=== PATIENT | female | born 1955 | race Hispanic/Latino ===

== ENCOUNTER 2017-05-30 12:04 | Inpatient (IN) | payer MEDICARE, OTHER ==
--- NOTE | 2017-05-30 12:32 | ED PDOC ---
Arrival/HPI - General Chief Complaint: GI Problem Time Seen by Provider: 05/30/17 12:07 Historian: Patient - History of Present Illness Narrative History of Present Illness (Text): 05/30/17 12:28 62 year old female, whose past medical history includes diabetes and hypertension, who presents to the emergency department complaining of abdominal pain for approximately one week. Patient states pain started gradually in left lower abdomen and has been constant and progressively worse. Also reports sensation of icnreased distension. States she has pain with urination, but denies discoloration of urine, denies retension. Patient notes associated vomiting and nausea. Reports normal bowel movements, denies bloody or dark stool. States she has chills in the middle of the night for the "past few days". 05/30/17 12:54 Symptom Onset: Sudden Symptom Course: Unchanged Activities at Onset: Light Context: Home Past Medical History - Provider Review Nursing Documentation Reviewed: Yes - Cardiac Hx Cardiac Disorders: Yes Hx Hypertension: Yes - Pulmonary Hx Respiratory Disorders: No - Neurological Hx Neurological Disorder: No - HEENT Hx HEENT Disorder: Yes Hx Blind: Yes (left eye) Other/Comment: Meniere's Disease - Renal Hx Renal Disorder: No - Endocrine/Metabolic Hx Endocrine Disorders: Yes Hx Diabetes Mellitus Type 2: Yes - Hematological/Oncological Hx Blood Disorders: No - Integumentary Hx Dermatological Disorder: No - Musculoskeletal/Rheumatological Hx Musculoskeletal Disorders: No - Gastrointestinal Hx Gastrointestinal Disorders: Yes Other/Comment: Peritonitis - Genitourinary/Gynecological Hx Genitourinary Disorders: No - Psychiatric Hx Psychophysiologic Disorder: No Hx Substance Use: No - Surgical History Hx Orthopedic Surgery: Yes (right rotator cuff) Family/Social History - Physician Review Nursing Documentation Reviewed: Yes Family/Social History: Unknown Family HX Smoking Status: Never Smoked Hx Alcohol Use: No Hx Substance Use: No Allergies/Home Meds Allergies/Adverse Reactions: Allergies Penicillins Allergy (Verified 05/30/17 12:44) URTICARIA acetaminophen [From Percocet] Adverse Reaction (Verified 05/30/17 12:45) DIZZINESS aspirin Adverse Reaction (Verified 05/30/17 12:45) PAIN oxycodone Adverse Reaction (Verified 05/30/17 12:45) DIZZINESS Review of Systems - Review of Systems Constitutional: Fatigue, Fevers, Night Sweats Eyes: absent: Vision Changes ENT: absent: Hearing Changes, Sore Throat Respiratory: SOB. absent: Cough Cardiovascular: absent: Chest Pain, Palpitations, Edema, Calf Pain, FRANCO Gastrointestinal: Abdominal Pain, Nausea, Vomiting, Appetite Changes, Anorexia Genitourinary Female: Dysuria. absent: Frequency, Vaginal Bleeding, Vaginal Discharge Musculoskeletal: absent: Back Pain, Neck Pain Skin: absent: Rash Neurological: absent: Headache, Dizziness, Focal Weakness Endocrine: absent: Polyuria Hemo/Lymphatic: absent: Easy Bleeding Psychiatric: absent: Depression Physical Exam - Physical Exam Narrative Physical Exam (Text): 05/30/17 12:32 Head: Atraumatic. Normocephalic. Eyes: Left eye at baseline from prior disease. No pain with eye movements. ENT: Mucous membranes dry. Oropharynx is clear and symmetric. Neck: Supple. Full ROM. No JVD. No lymphadenopathy. No meningeal signs. Cardiovascular: Tachycardiac. No murmurs, rubs, or gallops. Distal pulses are 2+ and symmetric. Pulmonary/Chest: Slightly tachypneic. Clear to auscultation bilaterally. No wheezing, rales or rhonchi. Abdominal: Distended. Rebound and guarding to the left lower quadrant. No pulsatile masses. Strong femoral pulses. No incarcerated hernias palpated. Back: No CVA tenderness. Extremities: No edema. No cyanosis. No clubbing. Full range of motion in all extremities. No calf tenderness. Skin: Skin is warm and dry. No petechiae. No purpura. Neurological: Alert, awake, and oriented to person, place, time, and situation. Normal speech. Motor and sensory exam intact. Psychiatric: Good eye contact. Normal interaction, affect, and behavior. Vital Signs Reviewed: Yes Vital Signs Temp Pulse Resp BP Pulse Ox 05/30/17 16:12 90 18 120/83 97 05/30/17 15:04 98.0 F 94 H 18 166/91 H 05/30/17 14:41 98.0 F 94 H 18 166/91 H 95 05/30/17 13:58 83 18 144/78 99 05/30/17 13:25 96 H 18 158/90 H 98 05/30/17 13:18 92 H 18 167/92 H 99 05/30/17 12:55 78 18 170/90 H 99 05/30/17 12:40 99 F 90 18 165/92 H 99 05/30/17 12:19 126 H 18 160/122 H 100 Temperature: Afebrile Blood Pressure: Hypertensive Pulse: Tachycardic Respiratory Rate: Tachypneic Appearance: Positive for: Ill-Appearing, Uncomfortable Pain Distress: Severe Mental Status: Positive for: Alert and Oriented X 3 Medical Decision Making ED Course and Treatment: 05/30/17 12:34 Impression: 62 year old female who presents to the emergency department complaining of left lower abdominal pain for 1 week. Differential Diagnosis included but are not limited to: Diverticulitis vs. perforation vs. peritonitis vs. bowel obstruction vs. renal colic vs. pyleonephritis vs. uti vs. sepsis Plan: -- IV Hydration -- CT Abdomen -- IV Abx -- Surgery Consult -- Reassess and disposition Progress Notes: 05/30/17 12:20 Case discussed with surgical garment inspector, who is aware and agrees with plan. 05/30/17 12:39 After lengthy discussion with patient, pt states percocet and oxycodon give her "stroke like symptoms". Pt also allergic to Penicillin and aspirin and tylenol. Due to these allergies, pt will be started on Levaquin and flagyl for suspicion of intraabdominal infection, and will have lengthy discussion regarding pain medication alternatives for patient with risks/benefits. residential case manager has performed initial evaluation in the Emergency Department. Dr. Serna, covering for PMD, has also performed initial assessment and requests Dr. Gallo for surgical consult, who I have communicated exam and history with. Labs and imaging studies pending. 05/30/17 13:[address] findings, consult was placed with superintendent landfill operations vice president mission integration, Dr. Galvan. 05/30/17 15:08 Patient DENIES allergy to acetaminophen. Tylenol ordered. She reports allergy to Percocet by has taken tylenol without adverse effect. I reviewed CT findings with patient. CT suggests possible pelvic mass with ascites. Given leukocytosis I cannot exclude infectious component as well although no free air or abscess currently noted. She is afebrile. NOT hypotensive. Tachycardia improved. 05/30/17 15:13 Dr Serna states she will consult gynecolgy oncolgist, requests cancelling current gynecology consult until further assessment. Pain management and allergies reviewed with patient and admitting team. - Lab Interpretations Lab Results: 05/30/17 12:20 05/30/17 12:20 Lab Results 05/30/17 13:00: Blood Type Confirm AB POSITIVE 05/30/17 12:20: Blood Type AB POSITIVE, Antibody Screen Negative, BBK History Checked No verified bt 05/30/17 12:20: Sodium 138, Chloride 101, Potassium 4.1, Carbon Dioxide 25, Anion Gap 16, BUN 17, Creatinine 0.9, Est GFR ( Amer) > 60, Est GFR (Non- Af Amer) > 60, Random Glucose 184 H, Calcium 10.0, Phosphorus 3.4, Magnesium 1.8 , Total Bilirubin 0.5, AST 33, ALT 32, Alkaline Phosphatase 85, Lactate Dehydrogenase 799 H, Total Creatine Kinase 36, Troponin I < 0.01, Total Protein 8.0, Albumin 4.2, Globulin 3.8, Albumin/Globulin Ratio 1.1, Amylase 60, Lipase 57 05/30/17 12:20: pO2 23 L, VBG pH 7.36, VBG pCO2 47.0, VBG HCO3 26.6, VBG Total CO2 28.0, VBG O2 Sat (Calc) 45.1, VBG Base Excess 0.6, VBG Potassium 4.4, Sodium 135.0, Chloride 101.0, Glucose 179 H, Lactate 1.3, FiO2 21.0, Venous Blood Potassium 4.4 05/30/17 12:20: PT 12.6 H, INR 1.09 H, APTT 26.9 05/30/17 12:20: WBC 19.2 H, RBC 4.10, Hgb 12.6, Hct 37.2, MCV 90.7, MCH 30.7, MCHC 33.9, RDW 13.3, Plt Count 450, MPV 9.6, Gran % 90.9 H, Lymph % (Auto) 4.5 L , Maverick % (Auto) 4.3, Eos % (Auto) 0.2 L, Baso % (Auto) 0.1, Gran # 17.48 H, Lymph # (Auto) 0.9 L, Maverick # (Auto) 0.8 H, Eos # (Auto) 0.0, Baso # (Auto) 0.02 , Neutrophils % (Manual) 92 H, Band Neutrophils % 3 H, Lymphocytes % (Manual) 4 L, Monocytes % (Manual) 1, Platelet Evaluation High - RAD Interpretation Radiology Orders: 05/30/17 12:25 ABD & PELVIS W/O PO OR IV CONT [CT] Stat 05/30/17 12:26 CHEST PORTABLE [RAD] Stat 05/30/17 12:31 ABDOMEN PORTABLE 1 VIEW [RAD] Stat Tabulating Supervisor: Radiologist - EKG Interpretation Interpreted by ED Physician: Yes Type: 12 lead EKG - Medication Orders Current Medication Orders: Metronidazole (Flagyl) 500 mg in 100 mls @ 100 mls/hr IVPB Q8 SAM PRN Reason: Protocol Last Admin: 05/30/17 21:42 Dose: 100 mls/hr eMAR Start Stop Document 05/30/17 21:42 CASPER (Rec: 05/30/17 21:43 CASPER [email or web address]) Intravenous Solution Start Date 05/30/17 Start Time 21:42 End Date 05/30/17 End time 22:42 Total Infusion Time 60 Sodium Chloride (Sodium Chloride 0.9%) 1,000 mls @ 80 mls/hr IV .[id number] [facility] Last Admin: 05/30/17 18:03 Dose: 80 mls/hr eMAR Start Stop Document 05/30/17 18:03 AGAPITO (Rec: 05/30/17 18:12 AGAPITO RAMSTENDORFLP) Intravenous Solution Start Date 05/30/17 Start Time 18:12 Levofloxacin/Dextrose (Levaquin 750mg) 750 mg IVPB DAILY SAM PRN Reason: Protocol Morphine Sulfate (Morphine) 1 mg IVP Q4H PRN PRN Reason: Pain, moderate (4-7) Last Admin: 05/30/17 18:16 Dose: 1 mg MAR Pain Assessment Document 05/30/17 18:16 AGAPITO (Rec: 05/30/17 18:16 AGAPITO [email or web address]) Pain Reassessment Is this a pain reassessment? Yes Sleep Is patient sleeping during reassessment? No Presence of Pain Presence of Pain Yes Pain Scale Used Pain Scale Used Numeric Location Left, Right or Bilateral Left Upper or Lower Lower Pain Location Body Site Abdomen Description Description Intermittent Intensity of Pain at present 10 Pain Behavior Moaning Aggravating Factors ADL's Changing Position Alleviating Factors/Management Medication Techniques Alleviating Factors Medication IVP Administration Document 05/30/17 18:16 AGAPITO (Rec: 05/30/17 18:16 AGAPITO [email or web address]) Charges for Administration # of IVP Administrations 1 Re-Assess: CYNDI Pain Assessment Document 05/30/17 19:16 AGAPITO (Rec: 05/30/17 19:44 AGAPITO [id number]) Pain Reassessment Is this a pain reassessment? Yes Sleep Is patient sleeping during reassessment? No Presence of Pain Presence of Pain No Pneumococcal Polyvalent Vaccine (Pneumovax 23 Vaccine) 0.5 ml IM .ONCE ONE Stop: 05/30/17 23:19 Discontinued Medications Acetaminophen (Tylenol 325mg Tab) 650 mg PO ONCE STA Stop: 05/30/17 14:51 Last Admin: 05/30/17 15:26 Dose: 650 mg CYNDI Pain/Vitals Document 05/30/17 15:26 SANCHO (Rec: 05/30/17 15:26 [id number] Pain Reassessment Is This A Pain ReAssessment? No Sleep Is patient sleeping during reassessment? No Presence of Pain Presence of Pain Yes Hydromorphone HCl (Dilaudid) 0.5 mg IVP Q3H PRN PRN Reason: Pain, moderate (4-7) Hydromorphone HCl (Dilaudid) 2 mg IVP STAT STA Stop: 05/30/17 21:50 Last Admin: 05/30/17 22:10 Dose: 2 mg CYNDI Pain Assessment Document 05/30/17 22:10 CASPER (Rec: 05/30/17 22:10 [facility] Pain Reassessment Is this a pain reassessment? Yes Presence of Pain Presence of Pain Yes Pain Scale Used Pain Scale Used Numeric Location Pain Location Body Site Abdomen Description Description Constant Intensity of Pain at present 8 IVP Administration Document 05/30/17 22:10 CASPER (Rec: 05/30/17 22:10 [facility] Charges for Administration # of IVP Administrations 1 Re-Assess: CYNDI Pain Assessment Document 05/30/17 23:10 CASPER (Rec: 05/30/17 23:11 CASPER [id number]) Pain Reassessment Is this a pain reassessment? Yes Sleep Is patient sleeping during reassessment? Yes Lactated Ringer's 3,030 ml/ IV (SUPPLIES) 3,030 mls @ 6,069.06 mls/hr IV ONCE ONE PRN Reason: 60 ML/KG/HR Stop: 05/30/17 12:29 Last Admin: 05/30/17 12:59 Dose: 6,069.06 mls/hr eMAR Start Stop Document 05/30/17 12:59 SANCHO (Rec: 05/30/17 13:00 SANCHO [id number]) Intravenous Solution Start Date 05/30/17 Start Time 13:00 End Date 05/30/17 End time 13:30 Total Infusion Time 30 Metronidazole (Flagyl) 500 mg in 100 mls @ 100 mls/hr IVPB STAT STA PRN Reason: Protocol Stop: 05/30/17 13:36 Last Admin: 05/30/17 13:00 Dose: 100 mls/hr eMAR Start Stop Document 05/30/17 13:00 SANCHO (Rec: 05/30/17 13:01 SANCHO [id number]) Intravenous Solution Start Date 05/30/17 Start Time 13:01 End Date 05/30/17 End time 13:31 Total Infusion Time 30 Levofloxacin/Dextrose (Levaquin 750mg) 750 mg in 150 mls @ 100 mls/hr IVPB STAT STA PRN Reason: Protocol Stop: 05/30/17 14:06 Last Admin: 05/30/17 13:31 Dose: 100 mls/hr eMAR Start Stop Document 05/30/17 13:31 SANCHO (Rec: 05/30/17 13:31 SANCHO [id number]) Intravenous Solution Start Date 05/30/17 Start Time 13:31 End Date 05/30/17 End time 15:01 Total Infusion Time 90 Lactated Ringer's (Lactated Ringer's) 1,000 mls @ 150 mls/hr IV .[id number] [facility] Last Admin: 05/30/17 15:26 Dose: 150 mls/hr eMAR Start Stop Document 05/30/17 15:26 SANCHO (Rec: 05/30/17 15:26 SANCHO [id number]) Intravenous Solution Start Date 05/30/17 Start Time 15:26 Morphine Sulfate (Morphine) 2 mg IVP STAT STA Stop: 05/30/17 20:28 Last Admin: 05/30/17 20:36 Dose: 2 mg MAR Pain Assessment Document 05/30/17 20:36 OLIVD (Rec: 05/30/17 20:36 OLIVD BMCKOSTENDORFLP) Pain Reassessment Is this a pain reassessment? No Presence of Pain Presence of Pain Yes Pain Scale Used Pain Scale Used Numeric Location Pain Location Body Site Abdomen Description Description Constant Intensity of Pain at present 9 Pain Behavior Moaning Restlessness IVP Administration Document 05/30/17 20:36 OLIVD (Rec: 05/30/17 20:36 OLIVD [email or web address]) Charges for Administration # of IVP Administrations 1 Re-Assess: MAR Pain Assessment Document 05/30/17 21:36 OLIVD (Rec: 05/30/17 21:42 OLIVD BMCKOSTENDORFLP) Pain Reassessment Is this a pain reassessment? Yes Sleep Is patient sleeping during reassessment? Yes - Scribe Statement The provider has reviewed the documentation as recorded by the Scribe Winnie Jansen All medical record entries made by the Scribe were at my direction and personally dictated by me. I have reviewed the chart and agree that the record accurately reflects my personal performance of the history, physical exam, medical decision making, and the department course for this patient. I have also personally directed, reviewed, and agree with the discharge instructions and disposition. Disposition/Present on Arrival - Present on Arrival Any Indicators Present on Arrival: No History of DVT/PE: No History of Uncontrolled Diabetes: No Urinary Catheter: No History of Decub. Ulcer: No History Surgical Site Infection Following: None - Disposition Have Diagnosis and Disposition been Completed?: Yes Diagnosis: Abdominal pain, Abdominal mass Disposition: HOSPITALIZED Disposition Time: 14:45 Patient Plan: Admission, Telemetry Patient Problems: Current Active Problems Problem Status Onset Abdominal mass Acute Abdominal pain Acute Condition: SERIOUS
[2017-05-30] MEDS ORDERED: levoFLOXacin 750 mg in D5W 750 MG/150 ML BAG IVPB STA (12:37)
[2017-05-30] MEDS ORDERED: metroNIDAZOLE IV 500 mg/100 ml 500 MG/100 ML BAG IVPB STA (12:37)
[2017-05-30 12:54] LABS: BASO # 0.02 K/mm3 (0.0-2.0); BASO % 0.1 % (0.0-3.0); EOS % 0.2 % (1.5-5.0); GRAN # 17.48 (1.4-6.5); GRAN % 90.9 % (50.0-68.0); HEMOGLOBIN 12.6 g/dL (12.0-16.0); LYMPH # 0.9 (1.2-3.4); LYMPH % 4.5 % (22.0-35.0); MEAN CELL VOLUME 90.7 fl (80.0-105.0); MEAN CORPUSCULAR HEMOGLOBIN 30.7 pg (25.0-35.0); MEAN CORPUSCULAR HGB CONC 33.9 g/dl (31.0-37.0); MEAN PLATELET VOLUME 9.6 fl (7.0-11.0); MONO # 0.8 (0.1-0.6); MONO % 4.3 % (1.0-6.0); PLATELET COUNT 450 10^3/uL (120.0-450.0); RED CELL DISTRIBUTION WIDTH 13.3 % (11.5-14.5); WHITE BLOOD COUNT 19.2 10^3/ul (4.5-11.0)
[2017-05-30 12:56] LABS: VENOUS BLOOD GAS BASE EXCESS 0.6 mmol/L (0.0-2.0); VENOUS BLOOD GAS PO2 23 mm/Hg (30-55); VENOUS BLOOD PH 7.36 (7.32-7.43)
[2017-05-30 13:12] LABS: ALB/GLOB RATIO 1.1 (1.1-1.8); ALBUMIN 4.2 g/dL (3.0-4.8); ALT/SGPT 32 U/L (7-56); AMYLASE 60 U/L (35-125); AST/SGOT 33 U/L (14-36); BLOOD UREA NITROGEN 17 mg/dL (7-21); GFR AFRICAN-AMERICAN > 60; GFR NON-AFRICAN AMERICAN > 60; LIPASE 57 U/L (23-300)
[2017-05-30 13:19] LABS: INR 1.09 (0.93-1.08); PARTIAL THROMBOPLASTIN TIME 26.9 Seconds (25.1-36.5); PROTHROMBIN TIME 12.6 SECONDS (9.4-12.5)
[2017-05-30 13:22] LABS: TROPONIN I < 0.01 ng/mL
[2017-05-30 13:24] LABS: BAND 3 % (0-2); LYMPHOCYTE 4 % (22.0-35.0); MONOCYTE 1 % (1.0-6.0); NEUTROPHIL 92 % (50.0-70.0); PLATELET ESTIMATE HIGH (NORMAL)
--- NOTE | 2017-05-30 14:05 | CT ---
PROCEDURE: CT Abdomen and Pelvis without intravenous contrast HISTORY: llq abdominal pain, eval for free air COMPARISON: None. TECHNIQUE: Without contrast. Contrast Dose: Radiation dose: Total exam DLP = Total exam DLP = 1009 mGy-cm. This CT exam was performed using one or more of the following dose reduction techniques: Automated exposure control, adjustment of the mA and/or kV according to patient size, and/or use of iterative reconstruction technique. FINDINGS: LOWER THORAX: Unremarkable. LIVER: Unremarkable. No gross lesion or ductal dilatation. GALLBLADDER AND BILE DUCTS: Large gallstones PANCREAS: Unremarkable. No gross lesion or ductal dilatation. SPLEEN: Unremarkable. ADRENALS: Unremarkable. No mass. KIDNEYS AND URETERS: Unremarkable. No hydronephrosis. No solid mass. VASCULATURE: Unremarkable. No aortic aneurysm. BOWEL: There is mild diverticulosis of the descending and sigmoid colon. There is no definite evidence of diverticulitis. There is no free air APPENDIX: Unremarkable. Normal appendix. PERITONEUM: There is a small amount of ascites around the liver and spleen and in the left pericolic gutter LYMPH NODES: Unremarkable. No enlarged lymph nodes. BLADDER: Unremarkable. REPRODUCTIVE: There is a complex solid and cystic mass in the pelvis that is suspicious for an ovarian malignancy. This measures 11.7 cm AP x 11.3 cm in height by 8.6 cm wide. There is also a small amount of ascites BONES: No acute fracture. OTHER FINDINGS: Findings were discussed with Dr. Molina at 2 p.m. IMPRESSION: Complex solid and cystic mass in the pelvis with associated ascites. The findings are suspicious for an ovarian malignancy. Large gallstones. No evidence of abscess or free air.
--- NOTE | 2017-05-30 14:49 | CP.PCM.CON ---
History of Present Illness - History of Present Illness History of Present Illness: General Surgery: Dr Gallo Pt is a 62F with PMH of HTN and DM. Pt presents to ED with 1 week of LLQ abdominal pain, which has acutely worsened over the past 24 hours. Pt states it was a dull ache for most of the week until last night when it became a sharp pain, with associated nausea and vomiting. Pt states she has been feeling feverish and has been having chills for the past 3 days. Admits to having normal bowel movements throughout the past week. Denies any sob, chest pain, hematemsis or hematochezia. Pt has never had this pain before, though states 30 years ago she was told she had "peritonitis". PMH: HTN. DM PSH: denies ALL: penicillins, aspirin Review of Systems - Review of Systems All systems: reviewed and no additional remarkable complaints except (as per hpi ) Past Patient History - Past Social History Smoking Status: Never Smoked - CARDIAC Hx Cardiac Disorders: Yes Hx Hypertension: Yes - PULMONARY Hx Respiratory Disorders: No - NEUROLOGICAL Hx Neurological Disorder: No - HEENT Hx HEENT Problems: Yes Hx Blind: Yes (left eye) Other/Comment: Meniere's Disease - RENAL Hx Chronic Kidney Disease: No - ENDOCRINE/METABOLIC Hx Endocrine Disorders: Yes Hx Diabetes Mellitus Type 2: Yes - HEMATOLOGICAL/ONCOLOGICAL Hx Blood Disorders: No - INTEGUMENTARY Hx Dermatological Problems: No - MUSCULOSKELETAL/RHEUMATOLOGICAL Hx Musculoskeletal Disorders: No - GASTROINTESTINAL Hx Gastrointestinal Disorders: Yes Other/Comment: Peritonitis - GENITOURINARY/GYNECOLOGICAL Hx Genitourinary Disorders: No - PSYCHIATRIC Hx Psychophysiologic Disorder: No Hx Substance Use: No - SURGICAL HISTORY Hx Orthopedic Surgery: Yes (right rotator cuff) Meds Allergies/Adverse Reactions: Allergies Allergy/AdvReac Type Severity Reaction Status Date / Time Penicillins Allergy URTICARIA Verified 05/30/17 12:44 acetaminophen [From Percocet] AdvReac DIZZINESS Verified 05/30/17 12:45 aspirin AdvReac PAIN Verified 05/30/17 12:45 oxycodone AdvReac DIZZINESS Verified 05/30/17 12:45 Physical Exam - Constitutional Appears: In Acute Distress - Head Exam Head Exam: NORMOCEPHALIC - Eye Exam Eye Exam: Normal appearance - ENT Exam ENT Exam: Mucous Membranes Dry - Respiratory Exam Respiratory Exam: absent: Accessory Muscle Use, Respiratory Distress - Cardiovascular Exam Cardiovascular Exam: Tachycardia, REGULAR RHYTHM - GI/Abdominal Exam GI & Abdominal Exam: Firm, Guarding (voluntary), Tenderness (worse in LLQ). absent: Distended, Hernia, Mass, Pulsatile Mass, Rebound, Rigid - Extremities Exam Extremities exam: Negative for: pedal edema - Neurological Exam Neurological exam: Alert, Oriented x3 - Psychiatric Exam Psychiatric exam: Anxious, Normal Affect - Skin Skin Exam: Normal Color, Warm Results - Vital Signs Recent Vital Signs: Last Vital Signs Temp 98.0 F 05/30/17 14:41 Pulse 94 H 05/30/17 14:41 Resp 18 05/30/17 14:41 BP 166/91 H 05/30/17 14:41 Pulse Ox 95 05/30/17 14:41 - Labs Result Diagrams: 05/30/17 12:20 05/30/17 12:20 Labs: Laboratory Results - last 24 hr 05/30/17 14:45 POC Glucose (mg/dL) 152 H Assessment & Plan - Assessment and Plan (Free Text) Assessment: 62F with 1 week of abdominal pain; CT shows free fluid and complex ovarian mass Plan: symptoms likely related to ovarian pathology and not diverticulitis would appropriately resuscitate and initiate IV abx consider Therapy Assistant consult/work-up CA 125 will d/w Dr Gallo further recs to follow Ovidio, PGY3
[2017-05-30] MEDS ORDERED: HYDROmorphone 0.5 mg/0.5 ml ISec IVP PRN (14:55)
[2017-05-30] MEDS ORDERED: Lactated Ringer's 1,000 ML IV SCH (15:00)
[2017-05-30 15:54] LABS: PH,URINE 5.5 (4.7-8.0); URINE BILIRUBIN NEGATIVE (NEGATIVE); URINE BLOOD NEGATIVE (NEGATIVE); URINE GLUCOSE (UA) NEGATIVE (NEGATIVE); URINE LEUKOCYTE ESTERASE NEGATIVE Leu/uL (NEGATIVE); URINE PROTEIN TRACE mg/dL (<30 mg/dL); URINE UROBILINOGEN 0.2 E.U./dL (<1 E.U./dL)
[2017-05-30 15:56] LABS: URINE COLOR YELLOW (YELLOW)
[2017-05-30 15:57] LABS: URINE APPEARANCE CLEAR (CLEAR)
[2017-05-30 16:03] LABS: URINE AMORPHOUS SEDIMENT FEW; URINE BACTERIA MANY (NEG); URINE RBC 0 - 2 /hpf (0-2)
[2017-05-30] MEDS ORDERED: Morphine 2 mg/2 mL syringe IM PRN (17:39)
[2017-05-30] MEDS ORDERED: Morphine 4 mg/ml ISec IVP PRN (17:42)
[2017-05-30] MEDS ORDERED: Sodium Chloride 0.9% 1,000 ML IV SCH (17:45)
--- NOTE | 2017-05-30 19:32 | HP ---
DATE OF EXAM: 05/30/2017 HISTORY OF PRESENT ILLNESS: Ms. Arshad is a 62-year-old female presented to the ED with left lower quadrant pain and lower abdominal pain. She also had nausea and vomiting. CAT scan of the abdomen and pelvis done showed large pelvic mass around 11 cm with cystic and solid component concerning for ovarian cancer. Denies any bleeding from any site. No chest pain. No shortness of breath. No weight loss. PAST MEDICAL HISTORY: Hypertension, Meniere disease, diabetes mellitus type 2, history of peritonitis. PAST SURGICAL HISTORY: Rotator cuff surgery. FAMILY HISTORY: Noncontributory. PERSONAL HISTORY: Never smoked. No history of alcohol abuse. ALLERGIES: PENICILLIN, TYLENOL, ASPIRIN, OXYCODONE. REVIEW OF SYSTEMS: As per HPI. Rest of 12-point systems reviewed and negative. PHYSICAL EXAMINATION: GENERAL: Mild distress due to abdominal pain. VITAL SIGNS: Temperature 98, heart rate 94 per minute, respiratory rate 18 per minute, blood pressure 166/90, pulse ox is 98% on room air. HEENT: Normal. NECK: No lymphadenopathy. CHEST: Air entry present and equal bilateral. No added sound. CARDIOVASCULAR: S1 and S2 normal. No murmur. No gallop. ABDOMEN: Soft, nontender. No hepatosplenomegaly. EXTREMITIES: No edema. ABDOMEN: No rebound tenderness in lower abdomen. SPINE: Nontender. SKIN: No petechiae. No rash. LABORATORY DATA: White count 19.2, hemoglobin 12.6, hematocrit 37.2, platelet 450. Sodium 138, potassium 4.1, BUN 17, creatinine 0.9, glucose 184. ASSESSMENT: 1. Pelvic mass. Concerning for ovarian cancer. 3. Hypertension. 4. Diabetes mellitus type 2. PLAN: Tumor marker C-125, CA 19-9 , CEA will be sent. Ultrasound of the abdomen. If possible biopsy of the solid component for diagnosis. If biopsy not possible because of cystic components, Diagnostic ascitic tap can be done for cytology for diagnosis. We will consult Dr. Trav Foote. Surgery consultation with Dr. Gallo requested. No evidence of acute abdomen on CAT scan. UA and urine culture pending. Levaquin and IV Flagyl was started. IV fluid normal saline at 80 mL an hour. Pain control with morphine 1 mg q.4 hour p.r.n. Gynec Oncology consultation will be arranged upon discharge form hospital. Amelie Serna MD [facility] # [id number] ELYSSA
[2017-05-30] MEDS ORDERED: Morphine 4 mg/ml ISec IVP STA (20:27)
[2017-05-30] MEDS: metroNIDAZOLE IV 500 mg/100 ml 500 MG/100 ML BAG IVPB SCH (21:42)
[2017-05-30] MEDS ORDERED: HYDROmorphone 0.5 mg/0.5 ml ISec IVP STA (21:49)
--- NOTE | 2017-05-30 21:51 | CP.PCM.PN ---
Subjective - Date & Time of Evaluation Date of Evaluation: 05/30/17 Time of Evaluation: 21:50 - Subjective Subjective: Patient was seen at bedside. She received morphine 2 mg IV which I ordered earlier for pain. She still has abdominal pain, lower abdominal pain , sharp pain, no radiation of pain.(21:50) Has no other complaints. Medical record was reviewed. This 62 year old white woman is admitted with LLQ abdominal pain of i week duration, nausea, vomiting, fever, chills,leukocytosis, free fluid and complex ovarian mass on CT scan. Has PMH of HTN, DM, obesity, peritonitis,left eye blindness, Meniere's disease , right rotator cuff surgery, allergy to PCN, ASA, acetaminophen, oxycodone. Objective - Vital Signs/Intake and Output Vital Signs (last 24 hours): Temp Pulse Resp BP Pulse Ox 98.0 F 90 18 120/83 97 05/30/17 15:04 05/30/17 16:12 05/30/17 16:12 05/30/17 16:12 05/30/17 16:12 - Medications Medications: Current Medications Hydromorphone HCl (Dilaudid) 2 mg IVP STAT STA Stop: 05/30/17 21:50 Metronidazole (Flagyl) 500 mg in 100 mls @ 100 mls/hr IVPB Q8 SAM PRN Reason: Protocol Last Admin: 05/30/17 21:42 Dose: 100 mls/hr Sodium Chloride (Sodium Chloride 0.9%) 1,000 mls @ 80 mls/hr IV .[id number] SAM Last Admin: 05/30/17 18:03 Dose: 80 mls/hr Levofloxacin/Dextrose (Levaquin 750mg) 750 mg IVPB DAILY SAM PRN Reason: Protocol Morphine Sulfate (Morphine) 1 mg IVP Q4H PRN PRN Reason: Pain, moderate (4-7) Last Admin: 05/30/17 18:16 Dose: 1 mg - Labs Labs: PT 12.6 SECONDS (9.4-12.5) H 05/30/17 12:20 INR 1.09 (0.93-1.08) H 05/30/17 12:20 APTT 26.9 Seconds (25.1-36.5) 05/30/17 12:20 Most Recent Lab Values WBC 19.2 10^3/ul (4.5-11.0) H 05/30/17 12:20 RBC 4.10 10^6/uL (3.5-6.1) 05/30/17 12:20 Hgb 12.6 g/dL (12.0-16.0) 05/30/17 12:20 Hct 37.2 % (36.0-48.0) 05/30/17 12:20 MCV 90.7 fl (80.0-105.0) 05/30/17 12:20 MCH 30.7 pg (25.0-35.0) 05/30/17 12:20 MCHC 33.9 g/dl (31.0-37.0) 05/30/17 12:20 RDW 13.3 % (11.5-14.5) 05/30/17 12:20 Plt Count 450 10^3/uL (120.0-450.0) 05/30/17 12:20 MPV 9.6 fl (7.0-11.0) 05/30/17 12:20 Gran % 90.9 % (50.0-68.0) H 05/30/17 12:20 Lymph % (Auto) 4.5 % (22.0-35.0) L 05/30/17 12:20 Amelia % (Auto) 4.3 % (1.0-6.0) 05/30/17 12:20 Eos % (Auto) 0.2 % (1.5-5.0) L 05/30/17 12:20 Baso % (Auto) 0.1 % (0.0-3.0) 05/30/17 12:20 Gran # 17.48 (1.4-6.5) H 05/30/17 12:20 Lymph # (Auto) 0.9 (1.2-3.4) L 05/30/17 12:20 Amelia # (Auto) 0.8 (0.1-0.6) H 05/30/17 12:20 Eos # (Auto) 0.0 (0.0-0.7) 05/30/17 12:20 Baso # (Auto) 0.02 K/mm3 (0.0-2.0) 05/30/17 12:20 Neutrophils % (Manual) 92 % (50.0-70.0) H 05/30/17 12:20 Band Neutrophils % 3 % (0-2) H 05/30/17 12:20 Lymphocytes % (Manual) 4 % (22.0-35.0) L 05/30/17 12:20 Monocytes % (Manual) 1 % (1.0-6.0) 05/30/17 12:20 Platelet Evaluation High (NORMAL) 05/30/17 12:20 PT 12.6 SECONDS (9.4-12.5) H 05/30/17 12:20 INR 1.09 (0.93-1.08) H 05/30/17 12:20 APTT 26.9 Seconds (25.1-36.5) 05/30/17 12:20 pO2 23 mm/Hg (30-55) L 05/30/17 12:20 VBG pH 7.36 (7.32-7.43) 05/30/17 12:20 VBG pCO2 47.0 (40-60) 05/30/17 12:20 VBG HCO3 26.6 mmol/l (21-28) 05/30/17 12:20 VBG Total CO2 28.0 mmol.L (22-28) 05/30/17 12:20 VBG O2 Sat (Calc) 45.1 % (40-65) 05/30/17 12:20 VBG Base Excess 0.6 mmol/L (0.0-2.0) 05/30/17 12:20 VBG Potassium 4.4 mmol/L (3.6-5.2) 05/30/17 12:20 Sodium 135.0 mmol/L (132-148) 05/30/17 12:20 Chloride 101.0 mmol/L (98-107) 05/30/17 12:20 Glucose 179 mg/dl (65-105) H 05/30/17 12:20 Lactate 1.3 mmol/L (0.7-2.1) 05/30/17 12:20 FiO2 21.0 % 05/30/17 12:20 Sodium 138 mmol/L (132-148) 05/30/17 12:20 Potassium 4.1 mmol/L (3.6-5.0) 05/30/17 12:20 Chloride 101 mmol/L (98-107) 05/30/17 12:20 Carbon Dioxide 25 mmol/L (21-33) 05/30/17 12:20 Anion Gap 16 (10-20) 05/30/17 12:20 BUN 17 mg/dL (7-21) 05/30/17 12:20 Creatinine 0.9 mg/dl (0.7-1.2) 05/30/17 12:20 Est GFR ( Amer) > 60 05/30/17 12:20 Est GFR (Non-Af Amer) > 60 05/30/17 12:20 POC Glucose (mg/dL) 152 mg/dL (65-110) H 05/30/17 14:45 Random Glucose 184 mg/dL (70-110) H 05/30/17 12:20 Calcium 10.0 mg/dL (8.4-10.5) 05/30/17 12:20 Phosphorus 3.4 mg/dL (2.5-4.5) 05/30/17 12:20 Magnesium 1.8 mg/dL (1.7-2.2) 05/30/17 12:20 Total Bilirubin 0.5 mg/dL (0.2-1.3) 05/30/17 12:20 AST 33 U/L (14-36) 05/30/17 12:20 ALT 32 U/L (7-56) 05/30/17 12:20 Alkaline Phosphatase 85 U/L (38-126) 05/30/17 12:20 Lactate Dehydrogenase 799 U/L (333-699) H 05/30/17 12:20 Total Creatine Kinase 36 U/L (35-230) 05/30/17 12:20 Troponin I < 0.01 ng/mL 05/30/17 12:20 Total Protein 8.0 g/dL (5.8-8.3) 05/30/17 12:20 Albumin 4.2 g/dL (3.0-4.8) 05/30/17 12:20 Globulin 3.8 gm/dL 05/30/17 12:20 Albumin/Globulin Ratio 1.1 (1.1-1.8) 05/30/17 12:20 Amylase 60 U/L (35-125) 05/30/17 12:20 Lipase 57 U/L (23-300) 05/30/17 12:20 Venous Blood Potassium 4.4 mmol/L (3.6-5.2) 05/30/17 12:20 Urine Color Yellow (YELLOW) 05/30/17 15:35 Urine Appearance Clear (CLEAR) 05/30/17 15:35 Urine pH 5.5 (4.7-8.0) 05/30/17 15:35 Ur Specific [place] >= 1.030 (1.005-1.035) 05/30/17 15:35 Urine Protein Trace mg/dL (<30 mg/dL) H 05/30/17 15:35 Urine Glucose (UA) Negative mg/dL (NEGATIVE) 05/30/17 15:35 Urine Ketones 15 mg/dL (NEGATIVE) H 05/30/17 15:35 Urine Blood Negative (NEGATIVE) 05/30/17 15:35 Urine Nitrate Negative (NEGATIVE) 05/30/17 15:35 Urine Bilirubin Negative (NEGATIVE) 05/30/17 15:35 Urine Urobilinogen 0.2 E.U./dL (<1 E.U./dL) 05/30/17 15:35 Ur Leukocyte Esterase Negative Jakob/uL (NEGATIVE) 05/30/17 15:35 Urine RBC 0 - 2 /hpf (0-2) 05/30/17 15:35 Urine WBC 1 - 3 /hpf (0-6) 05/30/17 15:35 Ur Epithelial Cells 4 - 5 /hpf (0-5) 05/30/17 15:35 Amorphous Sediment Few 05/30/17 15:35 Urine Bacteria Many (NEG) 05/30/17 15:35 Urine Other Uyeast 05/30/17 15:35 Blood Type AB POSITIVE 05/30/17 12:20 Blood Type Confirm AB POSITIVE 05/30/17 13:00 Antibody Screen Negative 05/30/17 12:20 BBK History Checked No verified bt 05/30/17 12:20 - Constitutional Appears: Well, No Acute Distress - Head Exam Head Exam: ATRAUMATIC, NORMAL INSPECTION, NORMOCEPHALIC - Eye Exam Eye Exam: Normal appearance - ENT Exam ENT Exam: Normal External Ear Exam - Neck Exam Neck Exam: Normal Inspection - Respiratory Exam Respiratory Exam: NORMAL BREATHING PATTERN - Cardiovascular Exam Cardiovascular Exam: absent: JVD - GI/Abdominal Exam GI & Abdominal Exam: Soft, Tenderness (Mild suprapubic and lower abdominal tenderness present.). absent: Distended, Firm, Guarding, Rigid - Rectal Exam Rectal Exam: Deferred - Exam Additional comments: Deferred. - Extremities Exam Extremities Exam: Normal Inspection - Back Exam Back Exam: NORMAL INSPECTION - Neurological Exam Neurological Exam: Alert, Awake, Oriented x3 - Psychiatric Exam Psychiatric exam: Normal Affect, Normal Mood - Skin Skin Exam: Normal Color Assessment and Plan - Assessment and Plan (Free Text) Assessment: Lower abdominal pain. Ovarian mass. Nausea/Vomiting. Leukocytosis. Hyperglycemia. Fever/Chills. Obesity. DM II. HTN. Plan: Morphine 2 mg IV given. Dilaudid 2 mg IV given. Continue present management.
[2017-05-30] MEDS ORDERED: Pneumococcal 23-Valent Vaccine IM ONE (23:18)
--- NOTE | 2017-05-31 00:33 | CARD ---
APPROVED REPORT EKG Measurement Heart [id number] <Conclusion> Sinus tachycardia Moderate voltage criteria for LVH, may be normal variant Borderline ECG
[2017-05-31] MEDS: metroNIDAZOLE IV 500 mg/100 ml 500 MG/100 ML BAG IVPB SCH ×3 (05:08→21:44)
[2017-05-31 06:40] LABS: BASO # 0.01 K/mm3 (0.0-2.0); BASO % 0.1 % (0.0-3.0); GRAN # 13.12 (1.4-6.5); GRAN % 90.9 % (50.0-68.0); LYMPH # 0.6 (1.2-3.4); LYMPH % 3.8 % (22.0-35.0); MEAN CELL VOLUME 91.1 fl (80.0-105.0); MEAN CORPUSCULAR HEMOGLOBIN 29.4 pg (25.0-35.0); MEAN CORPUSCULAR HGB CONC 32.3 g/dl (31.0-37.0); MEAN PLATELET VOLUME 9.5 fl (7.0-11.0); MONO # 0.8 (0.1-0.6); MONO % 5.2 % (1.0-6.0); RBC 3.5 10^6/uL (3.5-6.1); RED CELL DISTRIBUTION WIDTH 13.6 % (11.5-14.5); WHITE BLOOD COUNT 14.4 10^3/ul (4.5-11.0)
[2017-05-31 06:44] LABS: HEMOGLOBIN 10.3 g/dL (12.0-16.0)
--- NOTE | 2017-05-31 07:38 | CP.PCM.PN ---
Subjective - Date & Time of Evaluation Date of Evaluation: 05/31/17 Time of Evaluation: 07:35 - Subjective Subjective: Surgery: Dr. Gallo Patient complains of pain in the abdomen. She reports nausea throughout the night. She denies bowel movement. Objective - Vital Signs/Intake and Output Vital Signs (last 24 hours): Temp Pulse Resp BP Pulse Ox 98.0 F 84 18 120/83 97 05/30/17 15:04 05/31/17 05:41 05/30/17 16:12 05/30/17 16:12 05/30/17 16:12 Intake and Output: 05/31/17 05/31/17 06:59 18:59 Intake Total 1920 Output Total 200 Balance 1720 - Medications Medications: Current Medications Metronidazole (Flagyl) 500 mg in 100 mls @ 100 mls/hr IVPB Q8 SAM PRN Reason: Protocol Last Admin: 05/31/17 05:08 Dose: 100 mls/hr Sodium Chloride (Sodium Chloride 0.9%) 1,000 mls @ 80 mls/hr IV .[id number] ON LICENSE OF [facility] Last Admin: 05/30/17 18:03 Dose: 80 mls/hr Levofloxacin/Dextrose (Levaquin 750mg) 750 mg IVPB DAILY SAM PRN Reason: Protocol Morphine Sulfate (Morphine) 1 mg IVP Q4H PRN PRN Reason: Pain, moderate (4-7) Last Admin: 05/30/17 18:16 Dose: 1 mg - Labs Labs: 05/31/17 05:45 PT 12.6 SECONDS (9.4-12.5) H 05/30/17 12:20 INR 1.09 (0.93-1.08) H 05/30/17 12:20 APTT 26.9 Seconds (25.1-36.5) 05/30/17 12:20 - Constitutional Appears: Non-toxic, No Acute Distress - Head Exam Head Exam: ATRAUMATIC, NORMOCEPHALIC - Eye Exam Eye Exam: EOMI, Normal appearance - ENT Exam ENT Exam: Mucous Membranes Moist - Respiratory Exam Respiratory Exam: NORMAL BREATHING PATTERN. absent: Respiratory Distress - Cardiovascular Exam Cardiovascular Exam: REGULAR RHYTHM. absent: Tachycardia - GI/Abdominal Exam GI & Abdominal Exam: Distended, Soft, Tenderness (Right and left lower quadrant ), Mass. absent: Guarding - Extremities Exam Extremities Exam: Normal Inspection. absent: Calf Tenderness - Neurological Exam Neurological Exam: Alert, Awake - Skin Skin Exam: Dry, Warm Assessment and Plan - Assessment and Plan (Free Text) Assessment: 62 y/o female w/ abdominal pain most likely 2/2 pelvic mass Plan: -f/u CA125 -fu IR evaluation -pain control -nausea control -no acute general surgical intervention at this time AKWhite PGY3
[2017-05-31 07:46] LABS: ALBUMIN 3.5 g/dL (3.0-4.8); ALT/SGPT 21 U/L (7-56); AST/SGOT 37 U/L (14-36); BLOOD UREA NITROGEN 23 mg/dL (7-21); CALCIUM 9.5 mg/dL (8.4-10.5); GFR AFRICAN-AMERICAN > 60; GFR NON-AFRICAN AMERICAN > 60
[2017-05-31] MEDS: levoFLOXacin 750 mg in D5W 150 ML BAG IVPB SCH (10:13)
[2017-05-31] MEDS: HYDROmorphone 1 mg/ml ISec IVP PRN (12:02)
[2017-05-31] MEDS: Insulin Reg-LOW-Coverage SC SCH ×3 (12:05→21:44)
--- NOTE | 2017-05-31 12:17 | US ---
HISTORY: Abdominal pain, ovarian mass suspected COMPARISON: None available. TECHNIQUE: Negative study for primary or reactivation tuberculosis FINDINGS: UTERUS: Measures 4.3 x 6 x 10.9 cm. Enlarged, heterogeneous uterus pelvic mass inseparable from the uterus. This has both solid and cystic components measures 10.1 x 11.5 x 14.9 cm. There are cystic and solid areas. This is not typical for uterine fibroid. ENDOMETRIUM: Measures 13.0 mm in diameter. Heterogeneous echo characteristics. Cystic areas within the endometrium consistent with cystic endometrial hyperplasia. CERVIX: No cervical abnormality identified. RIGHT OVARY: Not visualized. LEFT OVARY: Not visualized. FREE FLUID: Trace free fluid identified in the pelvis/cul de sac. OTHER FINDINGS: None. IMPRESSION: Enlarged mass inseparable from the uterus but not typical appearance for uterine fibroid. Cystic neoplasm perhaps adnexal in origin likely in should be considered in further evaluation is recommended. Thickened abnormal endometrium in a postmenopausal individual. Follow-up recommended. Cross-sectional imaging recommendations for noninvasive follow-up: Pelvic MRI.
--- NOTE | 2017-05-31 12:20 | US ---
PROCEDURE: Pelvic ultrasound HISTORY: ovarian cyst COMPARISON: 05/30/2017.. TECHNIQUE: Transabdominal, transvaginal. Real -time technique with 2D, duplex and color Doppler. FINDINGS: Normal adnexa not visualize. Cystic pelvic mass with solid components identified, finding confirmed on recent CT scan. The mass is inseparable from the uterus. The adnexa are not visualized on the current study. Endometrial hypertrophy, thickened irregular endometrium perhaps cystic endometrial hyperplasia. IMPRESSION: Complex pelvic mass. Pelvic MRI recommended for further evaluation. In addition, pelvic MRI should be directed at the abnormal endometrium.
[2017-05-31] MEDS ORDERED: Morphine 2 mg/2 mL syringe IVP PRN (12:25)
[2017-05-31] MEDS ORDERED: Midazolam 2 MG/2 ML VIAL ONE (13:56)
[2017-05-31] MEDS ORDERED: Lidocaine 1% Inj (20ml) ONE (13:57)
[2017-05-31] MEDS ORDERED: Sodium Chloride 0.45% 1,000 ML IV SCH (14:45)
--- NOTE | 2017-05-31 17:28 | CT ---
PROCEDURE: CT guided left pelvic biopsy. HISTORY: Large complex cystic left adnexal mass. Evaluate for malignancy PHYSICIAN(S): Trav Foote MD. TECHNIQUE: The relative risks and indications of the procedure were explained to the patient and consent obtained. The patient was placed supine on the CT scanner and preliminary images through the pelvis obtained. Conscious sedation and monitoring were provided throughout the procedure by a nurse. There is a lobulated 7.5 x 14 cm complex cystic mass in the left adnexa.. A left anterior approach was selected and the area prepped and draped in the usual sterile fashion. 1% Xylocaine was used to anesthetize the skin and soft tissues. A 17-gauge guiding needle was advanced into the solid component of the left adnexal mass. Its position was confirmed with CT. Using coaxial technique, multiple core biopsies were obtained. The postprocedure images show no evidence of significant hemorrhage. IMPRESSION: 1. CT-guided left pelvic biopsy as described above.
--- NOTE | 2017-05-31 17:52 | PN ---
SUBJECTIVE: The patient has no complaints of any chest pain, no shortness of breath, no headaches. She says she does have abdominal pain. She says the pain medication has helped. PHYSICAL EXAMINATION: VITAL SIGNS: Temperature is 98.2, pulse of 82, blood pressure 137/79, respirations 19. GENERAL: The patient is lying in bed, flat, comfortable. HEENT: No oral lesion. Anicteric sclerae. Moist mucosa. NECK: No JVD, adenopathy, or thyromegaly. CARDIOVASCULAR: S1 and S2, regular. No murmurs, rubs, or gallops. LUNGS: Clear to auscultation bilaterally. No wheeze, rales, or rhonchi. ABDOMEN: Bowel sounds are positive, soft. There is tenderness in the suprapubic area. No rebound, no guarding. EXTREMITIES: No cyanosis, clubbing, or edema. LABORATORY DATA: White count of 14.9, hemoglobin 7.8. ASSESSMENT: 1. Complex mass in the pelvis measuring 11.7 x 11.3 x 8.6 cm. 2. Gallstones. 3. Hypertension. 4. Diabetes type 2. 5. Left eye blindness. PLAN: The patient is currently admitted to the hospital. She is going to be seen by Oncology with Dr. Serna to see the patient. The patient is on Flagyl. She is on morphine for pain. She is on IV fluids. I will place her on Dilaudid for pain control. She has a pelvic and transvaginal ultrasound that is pending. The patient is being followed by Dr. Gallo. We will also get physical therapy to evaluate the patient. We will wait further input from the consultants. We will place her on fingersticks to check her insulin. Mauricio Aponte MD
--- NOTE | 2017-05-31 19:54 | RAD ---
HISTORY: abdominal pain, eval for free air COMPARISON: No prior. FINDINGS: LUNGS: No active pulmonary disease. PLEURA: No significant pleural effusion identified, no pneumothorax apparent. CARDIOVASCULAR: Normal. OSSEOUS STRUCTURES: No significant abnormalities. VISUALIZED UPPER ABDOMEN: Normal. OTHER FINDINGS: None. IMPRESSION: No active disease.
--- NOTE | 2017-05-31 19:54 | RAD ---
HISTORY: eval for free air COMPARISON: No prior. FINDINGS: BOWEL: Normal. No obstruction. No free air. BONES: Normal. OTHER FINDINGS: None. IMPRESSION: No active disease.
--- NOTE | 2017-05-31 23:14 | CP.PCM.PN ---
Subjective - Date & Time of Evaluation Date of Evaluation: 05/31/17 Time of Evaluation: 18:00 - Subjective Subjective: Complaining of abdominal pain at biopsy site. She underwent CT guided biopsy of pelvic mass. left lower quadrant abdominal pain resolved. c/o nausea. No fever. CA 125 slightly elevated. Objective - Vital Signs/Intake and Output Vital Signs (last 24 hours): Temp Pulse Resp BP Pulse Ox 98.5 F 95 H 19 118/73 92 L 05/31/17 16:01 05/31/17 16:01 05/31/17 16:01 05/31/17 16:01 05/31/17 16:01 Intake and Output: 05/31/17 06/01/17 18:59 06:59 Intake Total 75 Balance 75 - Medications Medications: Current Medications Hydromorphone HCl (Dilaudid) 1 mg IVP Q4H PRN PRN Reason: Pain, severe (8-10) Last Admin: 05/31/17 12:02 Dose: 1 mg Sodium Chloride (Sodium Chloride 0.9%) 1,000 mls @ 80 mls/hr IV .[id number] [facility] Last Admin: 05/30/17 18:03 Dose: 80 mls/hr Metronidazole (Flagyl) 500 mg in 100 mls @ 100 mls/hr IVPB Q8 SAM PRN Reason: Protocol Last Admin: 05/31/17 21:44 Dose: 100 mls/hr Insulin Human Regular (Humulin R Low) 0 units SC ACHS SAM PRN Reason: Protocol Last Admin: 05/31/17 21:44 Dose: 2 units Levofloxacin/Dextrose (Levaquin 750mg) 750 mg IVPB DAILY [facility] PRN Reason: Protocol Last Admin: 05/31/17 10:13 Dose: 750 mg Morphine Sulfate (Morphine) 1 mg IVP Q4H PRN PRN Reason: Pain, moderate (4-7) Ondansetron HCl (Zofran Inj) 4 mg IVP Q8H [facility] Last Admin: 05/31/17 21:45 Dose: 4 mg Ondansetron HCl (Zofran Inj) 4 mg IVP Q8H PRN PRN Reason: Nausea/Vomiting - Labs Labs: 05/31/17 05:45 05/31/17 05:45 PT 12.6 SECONDS (9.4-12.5) H 05/30/17 12:20 INR 1.09 (0.93-1.08) H 05/30/17 12:20 APTT 26.9 Seconds (25.1-36.5) 05/30/17 12:20 - Constitutional Appears: Non-toxic - Head Exam Head Exam: ATRAUMATIC, NORMAL INSPECTION, NORMOCEPHALIC - Eye Exam Eye Exam: Normal appearance Pupil Exam: NORMAL ACCOMODATION - Neck Exam Neck Exam: Full ROM, Normal Inspection - Respiratory Exam Respiratory Exam: Clear to Ausculation Bilateral, NORMAL BREATHING PATTERN - Cardiovascular Exam Cardiovascular Exam: REGULAR RHYTHM, +S1, +S2 - GI/Abdominal Exam GI & Abdominal Exam: Soft, Normal Bowel Sounds - Extremities Exam Extremities Exam: Normal Capillary Refill, Normal Inspection - Back Exam Back Exam: NORMAL INSPECTION - Neurological Exam Neurological Exam: Alert, Oriented x3 - Psychiatric Exam Psychiatric exam: Normal Affect - Skin Skin Exam: Normal Color, Warm Assessment and Plan - Assessment and Plan (Free Text) Assessment: 1. pelvic mass : CT guided biopsy of pelvic mass done today. tolerated procedure well. CA125 slightly elevated. Will await biopsy results. Discussed at length with the patient. Surgery consulted. No surgical intervention required now. She will need gynec onc evaluation after biopsy results. 2. Pain control with current meds. 3. Nausea : zofran 4 mg tid, prn if needed. 4. Poor PO intake. 5. DM II ; uncontrolled. Thank you Dr. Aponte for allowing us to participate in her care.
[2017-06-01] MEDS: metroNIDAZOLE IV 500 mg/100 ml 500 MG/100 ML BAG IVPB SCH ×2 (05:40→14:04)
[2017-06-01 06:49] LABS: HEMOGLOBIN 9.4 g/dL (12.0-16.0); MEAN CELL VOLUME 91.5 fl (80.0-105.0); MEAN CORPUSCULAR HEMOGLOBIN 29.7 pg (25.0-35.0); MEAN CORPUSCULAR HGB CONC 32.4 g/dl (31.0-37.0); MEAN PLATELET VOLUME 9.3 fl (7.0-11.0); RBC 3.17 10^6/uL (3.5-6.1); RED CELL DISTRIBUTION WIDTH 13.5 % (11.5-14.5); WHITE BLOOD COUNT 10.2 10^3/ul (4.5-11.0)
[2017-06-01 07:07] LABS: ALBUMIN 3.2 g/dL (3.0-4.8); ALT/SGPT 20 U/L (7-56); AST/SGOT 37 U/L (14-36); BLOOD UREA NITROGEN 17 mg/dL (7-21); CALCIUM 9.1 mg/dL (8.4-10.5); GFR AFRICAN-AMERICAN > 60; GFR NON-AFRICAN AMERICAN > 60
--- NOTE | 2017-06-01 07:18 | CP.PCM.PN ---
Subjective - Date & Time of Evaluation Date of Evaluation: 06/01/17 Time of Evaluation: 07:10 - Subjective Subjective: Surgery Patient seen and examined at bedside. No acute events. C/O nausea. pain controlled. Objective - Vital Signs/Intake and Output Vital Signs (last 24 hours): Temp Pulse Resp BP Pulse Ox 98.5 F 95 H 19 118/73 92 L 05/31/17 16:01 05/31/17 16:01 05/31/17 16:01 05/31/17 16:01 05/31/17 16:01 - Medications Medications: Current Medications Hydromorphone HCl (Dilaudid) 1 mg IVP Q4H PRN PRN Reason: Pain, severe (8-10) Last Admin: 05/31/17 12:02 Dose: 1 mg Sodium Chloride (Sodium Chloride 0.9%) 1,000 mls @ 80 mls/hr IV .[id number] [facility] Last Admin: 05/30/17 18:03 Dose: 80 mls/hr Metronidazole (Flagyl) 500 mg in 100 mls @ 100 mls/hr IVPB Q8 SAM PRN Reason: Protocol Last Admin: 06/01/17 05:40 Dose: 100 mls/hr Insulin Human Regular (Humulin R Low) 0 units SC ACHS SAM PRN Reason: Protocol Last Admin: 05/31/17 21:44 Dose: 2 units Levofloxacin/Dextrose (Levaquin 750mg) 750 mg IVPB DAILY [facility] PRN Reason: Protocol Last Admin: 05/31/17 10:13 Dose: 750 mg Morphine Sulfate (Morphine) 1 mg IVP Q4H PRN PRN Reason: Pain, moderate (4-7) Ondansetron HCl (Zofran Inj) 4 mg IVP Q8H [facility] Last Admin: 06/01/17 05:40 Dose: Not Given Ondansetron HCl (Zofran Inj) 4 mg IVP Q8H PRN PRN Reason: Nausea/Vomiting - Labs Labs: 05/31/17 05:45 06/01/17 06:00 PT 12.6 SECONDS (9.4-12.5) H 05/30/17 12:20 INR 1.09 (0.93-1.08) H 05/30/17 12:20 APTT 26.9 Seconds (25.1-36.5) 05/30/17 12:20 - Constitutional Appears: No Acute Distress - Head Exam Head Exam: ATRAUMATIC, NORMAL INSPECTION, NORMOCEPHALIC - Eye Exam Eye Exam: EOMI, Normal appearance, PERRL Pupil Exam: NORMAL ACCOMODATION, PERRL - ENT Exam ENT Exam: Mucous Membranes Moist, Normal Exam - Neck Exam Neck Exam: Full ROM, Normal Inspection. absent: Lymphadenopathy - Respiratory Exam Respiratory Exam: Clear to Ausculation Bilateral, NORMAL BREATHING PATTERN - Cardiovascular Exam Cardiovascular Exam: REGULAR RHYTHM, +S1, +S2. absent: Murmur - GI/Abdominal Exam GI & Abdominal Exam: Soft, Tenderness, Normal Bowel Sounds. absent: Distended, Firm, Guarding, Rigid - Rectal Exam Additional comments: Obese - Extremities Exam Extremities Exam: Full ROM, Normal Capillary Refill, Normal Inspection. absent : Joint Swelling, Pedal Edema - Back Exam Back Exam: NORMAL INSPECTION - Neurological Exam Neurological Exam: Alert, Awake, CN II-XII Intact, Normal Gait, Oriented x3 - Psychiatric Exam Psychiatric exam: Normal Affect, Normal Mood - Skin Skin Exam: Dry, Intact, Normal Color, Warm Assessment and Plan - Assessment and Plan (Free Text) Assessment: 62 y/o female w/ abdominal pain most likely 2/2 pelvic mass US uterine mass, adnexal complex cystic mass, 1.5 cm endometrium CA125 : 37 Plan: -pain control -nausea control -no acute general surgical intervention at this time -Recommend Rectification Printer Onc -f/u Anahy Gallo
[2017-06-01 07:52] VITALS: RESP 20
--- NOTE | 2017-06-01 07:52 | PN ---
DATE: SUBJECTIVE: The patient has no complaints of any chest pain. She states her abdominal pain is better with pain medications. No headaches. No dizziness. PHYSICAL EXAMINATION VITAL SIGNS: Temperature is 98.5, pulse of 95, blood pressure is 118/73, respirations 19. GENERAL: The patient is lying in bed, flat, comfortable. HEENT: No oral lesion. Anicteric sclerae. Moist mucosa. NECK: No JVD, adenopathy, or thyromegaly. CARDIOVASCULAR: S1 and S2, regular. No murmurs, rubs, or gallops. LUNGS: Clear to auscultation bilaterally. No wheeze, rales, or rhonchi. ABDOMEN: Bowel sounds are positive. Soft, nontender and nondistended. EXTREMITIES: No cyanosis, clubbing or edema. LABS: White count is 14.4. ASSESSMENT 1. Complex mass in the pelvis, 11.7 x 11.3 x 8.6 cm, status post biopsy. 2. Gallstones. 3. Hypertension. 4. Diabetes type 2. 5. Left eye blindness. PLAN: The patient is currently comfortable. She is on Flagyl. White count is improving. I do not believe that this is sepsis as blood cultures and urine cultures have been negative. The patient is on antibiotics and the white count did improve. She is also on Flagyl, we will continue. At this point, the patient is on Zofran as needed. She is on a regular diet. She is on insulin sliding scale. She is going to be seen by Physical Therapy. I will see if she qualifies for the Transitional Care Unit. Mauricio Aponte MD
[2017-06-01] MEDS: Insulin Reg-LOW-Coverage SC SCH ×3 (08:00→18:28)
[2017-06-01] MEDS ORDERED: Morphine 15 mg Immediate Release Tab PO PRN (09:55)
[2017-06-01] MEDS: levoFLOXacin 750 mg in D5W 150 ML BAG IVPB SCH (09:59)
[2017-06-01] MEDS: HYDROmorphone 1 mg/ml ISec IVP PRN (10:24)
[2017-06-01 17:46] VITALS: BP 140/78; PULSE 88; TEMP 97.7; O2SAT 97
--- NOTE | 2017-06-14 07:59 | PQF GENQUE ---
This form is a permanent part of the medical record DR DOWNEY, Please verify and document the path report diagnosis in the chart so i can code it properly. Clarification of your documentation is requested to better reflect the severity of illness and intensity of treatment of your patient. Indicators present [] Specify: [] [] Specify: [] [] Specify: [] [] Specify: [] Location in the medical record that reflects the above clinical findings: [] Treatment Provided: [] PHYSICIAN'S RESPONSE Malignant Neoplasm of Left Ovary Based on your medical judgment of the clinical indicators outlined above please clarify the following: [] Practitioner response [] If unable to determine, please check the box, sign and date. Present On Admission (POA) Indicator: [] Present at the time of admission [] Not present at the time of admission [] Clinically Undetermined In responding to this query, please exercise your independent professional judgment. The fact that a question is asked does not imply that any particular answer is desired or expected. Thank you for your clarification on this documentation. 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
== END 2017-06-01 18:47 | disposition home or self-care (01) | DRG 738 ==
LOC: ED 12:04 → ERH 14:18 → 3RNO 16:25
PROVIDERS: ADMIT Internal Medicine Nephrology; ATTEND Internal Medicine Nephrology
PROC: 0UB13ZX Excision of Left Ovary, Percutaneous Approach, Diagnostic (ICD-10-PCS; principal; 2017-05-31 14:00)
DX: C56.2 Malignant neoplasm of left ovary (principal); I10 Essential (primary) hypertension; H81.09 Meniere's disease, unspecified ear; K80.20 Calculus of gallbladder without cholecystitis without obstruction; E11.65 Type 2 diabetes mellitus with hyperglycemia; H54.62 Unqualified visual loss, left eye, normal vision right eye; E66.9 Obesity, unspecified; Z88.0 Allergy status to penicillin

== ENCOUNTER 2017-06-15 14:53 | Inpatient (IN) | payer MEDICARE, OTHER ==
[2017-06-15] MEDS ORDERED: Sodium Chloride 0.9% 1,000 ML IV STA (15:20)
[2017-06-15 15:22] VITALS: BMI 37.0
--- NOTE | 2017-06-15 15:27 | ED PDOC ---
Arrival/HPI - General Chief Complaint: Abdominal Pain Time Seen by Provider: 06/15/17 14:56 Historian: Patient - History of Present Illness Narrative History of Present Illness (Text): 06/15/17 15:22 62 year old female, whose past medical history includes, left ovarian mass, diabetes and hypertension, who presents to the emergency department complaining of worsening of left lower abdominal pain today. Patient stated pain is severe to the point she feels she could "pass out", and feeling nauseous. Patient stated she was reviewing pelvic biopsy with Dr. 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 Denies cp, sob, rectal bleeding, urinary symptoms, weakness, paresthesias, cms, lara, or fever. Time/Duration: Other (see hpi) Context: Home Past Medical History - Provider Review Nursing Documentation Reviewed: Yes - Cardiac Hx Cardiac Disorders: Yes Hx Hypertension: Yes - Pulmonary Hx Respiratory Disorders: No - Neurological Hx Neurological Disorder: No - HEENT Hx HEENT Disorder: Yes Hx Blind: Yes (left eye) Other/Comment: Meniere's Disease - Renal Hx Renal Disorder: No - Endocrine/Metabolic Hx Diabetes Mellitus Type 2: Yes - Hematological/Oncological Hx Blood Disorders: No - Integumentary Hx Dermatological Disorder: No - Musculoskeletal/Rheumatological Hx Musculoskeletal Disorders: No - Gastrointestinal Hx Gastrointestinal Disorders: Yes Other/Comment: Peritonitis - Genitourinary/Gynecological Hx Genitourinary Disorders: No - Psychiatric Hx Psychophysiologic Disorder: No Hx Substance Use: No - Surgical History Hx Orthopedic Surgery: Yes (right rotator cuff) Family/Social History - Physician Review Nursing Documentation Reviewed: Yes Family/Social History: Other (noncontributory) Smoking Status: Never Smoked Hx Alcohol Use: No Hx Substance Use: No Allergies/Home Meds Allergies/Adverse Reactions: Allergies Penicillins Allergy (Verified 06/15/17 15:11) URTICARIA acetaminophen [From Percocet] Adverse Reaction (Verified 06/15/17 15:11) DIZZINESS aspirin Adverse Reaction (Verified 06/15/17 15:11) PAIN oxycodone Adverse Reaction (Verified 06/15/17 15:11) DIZZINESS Home Medications: Home Meds Medication Instructions Recorded Confirmed Ramipril [Altace] 10 mg PO DAILY 06/15/17 06/15/17 Review of Systems - Review of Systems Constitutional: Normal. absent: Fatigue, Weight Change, Fevers, Night Sweats Eyes: Normal ENT: Normal Respiratory: Normal. absent: SOB, Cough, Sputum Cardiovascular: Normal. absent: Chest Pain, Palpitations Gastrointestinal: Abdominal Pain, Nausea. absent: Constipation, Diarrhea, Vomiting Genitourinary Female: Normal. absent: Dysuria, Frequency, Hematuria Musculoskeletal: Normal Skin: Normal. absent: Rash, Skin Lesions Neurological: Normal. absent: Headache, Dizziness, Focal Weakness, Facial Droop Endocrine: Normal Hemo/Lymphatic: Normal Psychiatric: Normal Physical Exam Vital Signs Temp Pulse Resp BP Pulse Ox 06/15/17 22:00 98.6 F 113 H 20 150/85 06/15/17 18:15 110 H 20 119/66 96 06/15/17 16:30 101 H 19 135/71 100 06/15/17 15:11 98.1 F 125 H 19 123/79 99 06/15/17 15:07 98.1 F 123 H 19 127/82 99 Temperature: Afebrile Blood Pressure: Normal Pulse: Regular Respiratory Rate: Normal Appearance: Positive for: Well-Appearing, Non-Toxic, Comfortable Pain Distress: None Mental Status: Positive for: Alert and Oriented X 3 - Systems Exam Head: Present: Atraumatic, Normocephalic Pupils: Present: PERRL Extroacular Muscles: Present: EOMI Conjunctiva: Present: Normal Mouth: Present: Moist Mucous Membranes Neck: Present: Normal Range of Motion Respiratory/Chest: Present: Clear to Auscultation, Good Air Exchange. No: Respiratory Distress, Accessory Muscle Use Cardiovascular: Present: Regular Rate and Rhythm, Normal S1, S2. No: Murmurs Abdomen: Present: Tenderness, Normal Bowel Sounds. No: Distention, Peritoneal Signs, Rebound, Guarding Back: Present: Normal Inspection. No: CVA Tenderness Upper Extremity: Present: Normal Inspection, Normal ROM. No: Cyanosis, Edema Lower Extremity: Present: Normal Inspection, Normal ROM. No: Edema Neurological: Present: GCS=15, CN II-XII Intact, Speech Normal, Motor Func Grossly Intact, Normal Sensory Function, Normal Cerebellar Funct Skin: Present: Warm, Dry, Normal Color. No: Rashes Psychiatric: Present: Alert, Oriented x 3, Normal Insight, Normal Concentration Medical Decision Making ED Course and Treatment: I SPOKE WITH DR. DOWNEY REGARDING INTRACTABLE ABDOMINAL PAIN. HE AGREED WITH OBSERVATION ADMISSION Reassessment Condition: Re-examined, Improving,but remains with symptoms - Lab Interpretations Microbiology Results: Microbiology Results 06/15/17 15:36 Blood-Venous Blood Culture - Preliminary NO GROWTH AFTER 3 DAYS 06/15/17 16:00 Blood-Venous Blood Culture - Preliminary NO GROWTH AFTER 48 HOURS Lab Results: 06/15/17 15:36 06/15/17 15:36 Lab Results 06/15/17 19:00: Urine Color Yellow, Urine Appearance Clear, Urine pH 5.5, Ur Specific [place] > 1.030, Urine Protein 30 H, Urine Glucose (UA) 250 H, Urine Ketones Trace H, Urine Blood Negative, Urine Nitrate Negative, Urine Bilirubin Negative, Urine Urobilinogen 0.2, Ur Leukocyte Esterase Negative, Urine RBC Negative, Urine WBC 2 - 5, Ur Epithelial Cells 10 - 12, Urine Bacteria Mod 06/15/17 18:37: POC Glucose (mg/dL) 257 H 06/15/17 15:36: Sodium 134, Potassium 5.0, Chloride 97 L, Carbon Dioxide 24, Anion Gap 18, BUN 23 H, Creatinine 0.9, Est GFR ( Amer) > 60, Est GFR ( Non-Af Amer) > 60, Random Glucose 304 H* D, Calcium 9.6, Total Bilirubin 0.7, AST 34, ALT 23, Alkaline Phosphatase 95, Lactate Dehydrogenase 1206 H, Total Creatine Kinase 32 L, Troponin I < 0.01, Total Protein 7.8, Albumin 4.3, Globulin 3.5, Albumin/Globulin Ratio 1.2, Amylase 55, Lipase 47 06/15/17 15:36: PT 13.2 H, INR 1.15 H, APTT 25.8 06/15/17 15:36: WBC 20.8 H D, RBC 3.99, Hgb 11.9 L D, Hct 36.0, MCV 90.2, MCH 29.8, MCHC 33.1, RDW 13.4, Plt Count 528 H, MPV 9.7, Gran % 94.6 H, Lymph % ( Auto) 2.8 L, [place] % (Auto) 2.5, Eos % (Auto) 0.0 L, Baso % (Auto) 0.1, Gran # 19.61 H, Lymph # (Auto) 0.6 L, [place] # (Auto) 0.5, Eos # (Auto) 0.0, Baso # (Auto ) 0.02, Neutrophils % (Manual) 90 H, Band Neutrophils % 5 H, Lymphocytes % ( Manual) 3 L, Atypical Lymphs % 1 H, Monocytes % (Manual) 1, Toxic Granulation 1+ , Platelet Evaluation High, Hypochromasia Slight, Anisocytosis (manual) 1+ I have reviewed the lab results: Yes Interpretation: Abnormal lab values - RAD Interpretation Narrative RAD Interpretations (Text): 06/15/17 15:46 FINDINGS: LUNGS: No active pulmonary disease. PLEURA: No significant pleural effusion identified, no pneumothorax apparent. CARDIOVASCULAR: Normal. OSSEOUS STRUCTURES: No significant abnormalities. VISUALIZED UPPER ABDOMEN: Normal. OTHER FINDINGS: None. IMPRESSION: No active disease. 06/15/17 18:34 PROCEDURE: CT Abdomen and Pelvis with contrast FINDINGS: LOWER THORAX: Unremarkable. LIVER: Unremarkable. No gross lesion or ductal dilatation. GALLBLADDER AND BILE DUCTS: Multiple large gallstones are again demonstrated. There is a small amount of ascites with some fluid around the gallbladder. PANCREAS: Unremarkable. No gross lesion or ductal dilatation. SPLEEN: Unremarkable. ADRENALS: Unremarkable. No mass. KIDNEYS AND URETERS: Unremarkable. No hydronephrosis. No solid mass. VASCULATURE: Unremarkable. No aortic aneurysm. BOWEL: Unremarkable. No obstruction. No gross mural thickening. APPENDIX: Normal appendix. PERITONEUM: Unremarkable. No free fluid. No free air. LYMPH NODES: Unremarkable. No enlarged lymph nodes. BLADDER: Unremarkable. REPRODUCTIVE: There is a complex cystic and solid mass in the pelvis that is suspicious for an ovarian malignancy. This measures 11.7 cm AP by 11.3 cm height by 8.6 cm wide. This is unchanged from the recent exam. BONES: No acute fracture. OTHER FINDINGS: None. IMPRESSION: There is a complex cystic and solid mass in the pelvis that is suspicious for an ovarian malignancy. This measures 11.7 cm AP by 11.3 cm height by 8.6 cm wide. This is unchanged from the recent exam. Mild ascites. Multiple large gallstones. Radiology Orders: 06/15/17 15:19 CHEST PORTABLE [RAD] Stat 06/15/17 15:21 ABD & PELVIS IV CONTRAST ONLY [CT] Stat - EKG Interpretation Interpreted by ED Physician: Yes (Sinus tachycardia @ [address] changes) Type: 12 lead EKG Comparison: No previous EKG avail. - Medication Orders Current Medication Orders: Fentanyl (Duragesic) 1 patch TD Q72H SAM Last Admin: 06/17/17 11:00 Dose: 1 patch Hydromorphone HCl (Dilaudid) 2 mg PO Q4 PRN PRN Reason: Pain, moderate (4-7) Last Admin: 06/16/17 21:40 Dose: 2 mg Hydromorphone HCl (Dilaudid) 2 mg IVP Q4H PRN PRN Reason: Pain, severe (8-10) Aztreonam (Azactam 1 Gm) 100 mls @ 100 mls/hr IVPB Q8 SAM PRN Reason: Protocol Stop: 06/25/17 06:01 Last Admin: 06/18/17 14:17 Dose: 100 mls/hr eMAR Start Stop Document 06/18/17 14:17 RA (Rec: 06/18/17 15:17 RA [facility] [id number]) Intravenous Solution Start Date 06/18/17 Start Time 14:20 End Date 06/18/17 End time 15:20 Total Infusion Time 60 Metronidazole (Flagyl) 500 mg in 100 mls @ 100 mls/hr IVPB Q8 SAM PRN Reason: Protocol Stop: 06/25/17 06:01 Last Admin: 06/18/17 14:17 Dose: 100 mls/hr eMAR Start Stop Document 06/18/17 14:17 RA (Rec: 06/18/17 15:18 RA [facility] [id number]) Intravenous Solution Start Date 06/18/17 Start Time 14:20 End Date 06/18/17 End time 15:20 Total Infusion Time 60 Vancomycin HCl (Vancomycin 1gm) 1 gm in 250 mls @ 167 mls/hr IVPB Q12H SAM PRN Reason: Protocol Stop: 06/24/17 23:16 Last Admin: 06/18/17 10:16 Dose: 167 mls/hr eMAR Start Stop Document 06/18/17 10:16 RA (Rec: 06/18/17 10:16 RA [facility] [id number]) Intravenous Solution Start Date 06/18/17 Start Time 10:16 End Date 06/18/17 End time 11:20 Total Infusion Time 64 Sodium Chloride (Sodium Chloride 0.9%) 1,000 mls @ 80 mls/hr IV .[id number] SAM Last Admin: 06/18/17 10:19 Dose: 80 mls/hr eMAR Start Stop Document 06/18/17 10:19 RA (Rec: 06/18/17 10:20 RA [id number]) Intravenous Solution Start Date 06/18/17 Start Time 10:19 End Date 06/18/17 End time 22:20 Total Infusion Time 721 Insulin Human Regular (Humulin R Low) 0 units SC ACHS SAM PRN Reason: Protocol Last Admin: 06/18/17 11:11 Dose: Not Given Non-Admin Reason: NPO Ondansetron HCl (Zofran Inj) 8 mg IVP Q6H [facility] Last Admin: 06/18/17 15:54 Dose: Not Given Non-Admin Reason: Patient Refused Discontinued Medications Docusate Sodium (Colace) 100 mg PO BID [facility] Last Admin: 06/18/17 08:10 Dose: Famotidine (Pepcid) 20 mg IVP STAT STA Stop: 06/15/17 15:17 Last Admin: 06/15/17 15:54 Dose: 20 mg IVP Administration Document 06/15/17 15:54 [email or web address] (Rec: 06/15/17 15:54 [email or web address] [id number]- [employer]) Charges for Administration # of IVP Administrations 1 Fentanyl (Duragesic) 1 patch TD Q72H [facility] Last Admin: 06/15/17 22:01 Dose: 1 patch MAR Transdermal Patch Site Document 06/15/17 22:01 CHRISTOPH (Rec: 06/15/17 22:01 CHRISTOPH [id number]) Transdermal Patch Site Transdermal Patch Site Left Lower Abdomen Hydromorphone HCl (Dilaudid) 0.5 mg IVP STAT STA Stop: 06/15/17 17:40 Last Admin: 06/15/17 17:52 Dose: 0.5 mg MAR Pain Assessment Document 06/15/17 17:52 [email or web address] (Rec: 06/15/17 17:52 [email or web address] [id number]- [employer] ENGINEER) Pain Reassessment Is this a pain reassessment? No Sleep Is patient sleeping during reassessment? No Presence of Pain Presence of Pain Yes Pain Scale Used Pain Scale Used Numeric Location Upper or Lower Lower Pain Location Body Site Abdomen Description Description Constant Intensity of Pain at present 9 Pain Behavior Facial Grimacing Aggravating Factors Changing Position Alleviating Factors/Management Medication Techniques Alleviating Factors Medication IVP Administration Document 06/15/17 17:52 [email or web address] (Rec: 06/15/17 17:52 [email or web address] [id number]- [employer] ENGINEER) Charges for Administration # of IVP Administrations 1 Hydromorphone HCl (Dilaudid) 0.5 mg IVP STAT STA Stop: 06/15/17 17:40 Last Admin: 06/15/17 17:52 Dose: 0.5 mg MAR Pain Assessment Document 06/15/17 17:52 [email or web address] (Rec: 06/15/17 17:53 [email or web address] [id number]- [employer] ENGINEER) Pain Reassessment Is this a pain reassessment? No Sleep Is patient sleeping during reassessment? No Presence of Pain Presence of Pain Yes Pain Scale Used Pain Scale Used Numeric Location Upper or Lower Lower Pain Location Body Site Abdomen Description Description Constant Intensity of Pain at present 9 Pain Behavior Facial Grimacing Aggravating Factors Changing Position Alleviating Factors/Management Medication Techniques Alleviating Factors Medication IVP Administration Document 06/15/17 17:52 [email or web address] (Rec: 06/15/17 17:53 [email or web address] [id number]- [employer] ENGINEER) Charges for Administration # of IVP Administrations 1 Hydromorphone HCl (Dilaudid) 1 mg IVP Q4H PRN PRN Reason: Pain, severe (8-10) Last Admin: 06/17/17 11:08 Dose: 1 mg MAR Pain Assessment Document 06/17/17 11:08 [facility] (Rec: 06/17/17 11:09 BIR [id number]) Pain Reassessment Is this a pain reassessment? No Sleep Is patient sleeping during reassessment? No Presence of Pain Presence of Pain Yes IVP Administration Document 06/17/17 11:08 BIR (Rec: 06/17/17 11:09 BIR [id number]) Charges for Administration # of IVP Administrations 1 Re-Assess: MAR Pain Assessment Document 06/17/17 12:08 FC (Rec: 06/17/17 20:15 FC [id number]) Pain Reassessment Is this a pain reassessment? No Hydromorphone HCl (Dilaudid) 2 mg IVP Q4H PRN PRN Reason: Pain, severe (8-10) Sodium Chloride (Sodium Chloride 0.9%) 1,000 mls @ 999 mls/hr IV .Q1H1M STA Stop: 06/15/17 16:20 Last Admin: 06/15/17 15:52 Dose: 999 mls/hr eMAR Start Stop Document 06/15/17 15:52 [email or web address] (Rec: 06/15/17 15:52 [email or web address] [id number]- [employer] ENGINEER) Intravenous Solution Start Date 06/15/17 Start Time 15:52 End Date 06/15/17 Piperacillin Sod/Tazobactam Sod (Zosyn 4.5 Gm In Ns 100ml) 4.5 gm in 100 mls @ 200 mls/hr IVPB STAT STA PRN Reason: Protocol Stop: 06/15/17 19:06 Last Admin: 06/15/17 21:45 Dose: 200 mls/hr eMAR Start Stop Document 06/15/17 21:45 CHRISTOPH (Rec: 06/15/17 21:46 CHRISTOPH [id number]) Intravenous Solution Start Date 06/15/17 Start Time 21:45 End Date 06/15/17 End time 22:15 Total Infusion Time 30 Sodium Chloride (Sodium Chloride 0.9%) 1,000 mls @ 75 mls/hr IV .[id number] SAM Last Admin: 06/15/17 21:46 Dose: 75 mls/hr eMAR Start Stop Document 06/15/17 21:46 CHRISTOPH (Rec: 06/15/17 21:46 CHRISTOPH [id number]) Intravenous Solution Start Date 06/15/17 Start Time 21:46 Metformin HCl (Glucophage) 1,000 mg PO DAILY SAM Last Admin: 06/17/17 10:37 Dose: 1,000 mg Morphine Sulfate (Morphine) 4 mg IVP STAT STA Stop: 06/15/17 15:17 Last Admin: 06/15/17 15:54 Dose: 4 mg MAR Pain Assessment Document 06/15/17 15:54 [email or web address] (Rec: 06/15/17 15:55 [email or web address] [facility]- [employer] ENGINEER) Pain Reassessment Is this a pain reassessment? No Sleep Is patient sleeping during reassessment? No Presence of Pain Presence of Pain Yes Pain Scale Used Pain Scale Used Numeric Location Upper or Lower Lower Pain Location Body Site Abdomen Description Description Constant Intensity of Pain at present 9 Pain Behavior Facial Grimacing Aggravating Factors Changing Position Alleviating Factors/Management Medication Techniques Alleviating Factors Medication IVP Administration Document 06/15/17 15:54 [email or web address] (Rec: 06/15/17 15:55 [email or web address] [facility]- [employer]ER) Charges for Administration # of IVP Administrations 1 Ondansetron HCl (Zofran Inj) 4 mg IVP STAT STA Stop: 06/15/17 15:17 Last Admin: 06/15/17 16:14 Dose: 4 mg IVP Administration Document 06/15/17 16:14 [email or web address] (Rec: 06/15/17 16:14 [email or web address] [facility]- [employer]) Charges for Administration # of IVP Administrations 1 Ondansetron HCl (Zofran Inj) 4 mg IVP Q4H SAM Last Admin: 06/16/17 21:55 Dose: Not Given Non-Admin Reason: Patient Refused Ondansetron HCl (Zofran Inj) 4 mg IVP Q6H PRN PRN Reason: Nausea/Vomiting Last Admin: 06/17/17 11:14 Dose: 4 mg IVP Administration Document 06/17/17 11:14 BIR (Rec: 06/17/17 11:14 [facility] [id number]) Charges for Administration # of IVP Administrations 1 Pneumococcal Polyvalent Vaccine (Pneumovax 23 Vaccine) 0.5 ml IM .ONCE ONE Stop: 06/15/17 23:04 Disposition/Present on Arrival - Present on Arrival Any Indicators Present on Arrival: No History of DVT/PE: No History of Uncontrolled Diabetes: No Urinary Catheter: No History of Decub. Ulcer: No History Surgical Site Infection Following: None - Disposition Have Diagnosis and Disposition been Completed?: Yes Diagnosis: Intractable abdominal pain Disposition: HOSPITALIZED Disposition Time: 18:35 Patient Plan: Observation Patient Problems: Current Active Problems Problem Status Onset Intractable abdominal pain Acute Condition: STABLE
--- NOTE | 2017-06-15 15:44 | RAD ---
HISTORY: admission COMPARISON: 05/30/2017 FINDINGS: LUNGS: No active pulmonary disease. PLEURA: No significant pleural effusion identified, no pneumothorax apparent. CARDIOVASCULAR: Normal. OSSEOUS STRUCTURES: No significant abnormalities. VISUALIZED UPPER ABDOMEN: Normal. OTHER FINDINGS: None. IMPRESSION: No active disease.
[2017-06-15] MEDS: Morphine 4 mg/ml ISec IVP STA ×2 (15:53→15:54)
[2017-06-15 16:03] LABS: BASO # 0.02 K/mm3 (0.0-2.0); BASO % 0.1 % (0.0-3.0); GRAN # 19.61 (1.4-6.5); GRAN % 94.6 % (50.0-68.0); HEMOGLOBIN 11.9 g/dL (12.0-16.0); LYMPH # 0.6 (1.2-3.4); LYMPH % 2.8 % (22.0-35.0); MEAN CELL VOLUME 90.2 fl (80.0-105.0); MEAN CORPUSCULAR HEMOGLOBIN 29.8 pg (25.0-35.0); MEAN CORPUSCULAR HGB CONC 33.1 g/dl (31.0-37.0); MEAN PLATELET VOLUME 9.7 fl (7.0-11.0); MONO # 0.5 (0.1-0.6); MONO % 2.5 % (1.0-6.0); PLATELET COUNT 528 10^3/uL (120.0-450.0); RBC 3.99 10^6/uL (3.5-6.1); RED CELL DISTRIBUTION WIDTH 13.4 % (11.5-14.5); WHITE BLOOD COUNT 20.8 10^3/ul (4.5-11.0)
[2017-06-15 16:09] LABS: ALB/GLOB RATIO 1.2 (1.1-1.8); ALBUMIN 4.3 g/dL (3.0-4.8); ALT/SGPT 23 U/L (7-56); AMYLASE 55 U/L (35-125); AST/SGOT 34 U/L (14-36); BLOOD UREA NITROGEN 23 mg/dL (7-21); CALCIUM 9.6 mg/dL (8.4-10.5); GFR AFRICAN-AMERICAN > 60; GFR NON-AFRICAN AMERICAN > 60; LIPASE 47 U/L (23-300)
[2017-06-15 16:18] LABS: INR 1.15 (0.93-1.08); PARTIAL THROMBOPLASTIN TIME 25.8 Seconds (25.1-36.5); PROTHROMBIN TIME 13.2 SECONDS (9.4-12.5)
[2017-06-15 16:19] LABS: TROPONIN I < 0.01 ng/mL
[2017-06-15] MEDS ORDERED: HYDROmorphone 1 mg/ml ISec IVP STA (16:29)
[2017-06-15 16:33] LABS: ATYPICAL LYMPHOCYTE 1 % (0.0-0.0); BAND 5 % (0-2); LYMPHOCYTE 3 % (22.0-35.0); MONOCYTE 1 % (1.0-6.0); NEUTROPHIL 90 % (50.0-70.0)
[2017-06-15 16:34] LABS: ANISOCYTOSIS 1+; HYPOCHROMIA SLIGHT; PLATELET ESTIMATE HIGH (NORMAL); TOXIC GRANULATION 1+
[2017-06-15] MEDS ORDERED: Iohexol 350 MG/100 ML VIAL ONE (17:03)
[2017-06-15] MEDS ORDERED: HYDROmorphone 0.5 mg/0.5 ml ISec IVP STA ×3 (17:09→17:39)
--- NOTE | 2017-06-15 18:00 | CT ---
PROCEDURE: CT Abdomen and Pelvis with contrast HISTORY: LLQ abdominal pain COMPARISON: 05/30/2017 CT TECHNIQUE: Contrast dose: 100 cc of Omni 350 Radiation dose: Total exam DLP = 1079 mGy-cm. This CT exam was performed using one or more of the following dose reduction techniques: Automated exposure control, adjustment of the mA and/or kV according to patient size, and/or use of iterative reconstruction technique. FINDINGS: LOWER THORAX: Unremarkable. LIVER: Unremarkable. No gross lesion or ductal dilatation. GALLBLADDER AND BILE DUCTS: Multiple large gallstones are again demonstrated. There is a small amount of ascites with some fluid around the gallbladder. PANCREAS: Unremarkable. No gross lesion or ductal dilatation. SPLEEN: Unremarkable. ADRENALS: Unremarkable. No mass. KIDNEYS AND URETERS: Unremarkable. No hydronephrosis. No solid mass. VASCULATURE: Unremarkable. No aortic aneurysm. BOWEL: Unremarkable. No obstruction. No gross mural thickening. APPENDIX: Normal appendix. PERITONEUM: Unremarkable. No free fluid. No free air. LYMPH NODES: Unremarkable. No enlarged lymph nodes. BLADDER: Unremarkable. REPRODUCTIVE: There is a complex cystic and solid mass in the pelvis that is suspicious for an ovarian malignancy. This measures 11.7 cm AP by 11.3 cm height by 8.6 cm wide. This is unchanged from the recent exam. BONES: No acute fracture. OTHER FINDINGS: None. IMPRESSION: There is a complex cystic and solid mass in the pelvis that is suspicious for an ovarian malignancy. This measures 11.7 cm AP by 11.3 cm height by 8.6 cm wide. This is unchanged from the recent exam. Mild ascites. Multiple large gallstones.
[2017-06-15] MEDS ORDERED: Piperacill/Tazo 4.5gm in NS 4.5 GM/100 ML BAG IVPB STA (18:37)
[2017-06-15] MEDS ORDERED: Sodium Chloride 0.9% 1,000 ML IV SCH (19:00)
[2017-06-15] MEDS ORDERED: oxyCODONE 10 mg Immediate Release Tab PO PRN (20:32)
[2017-06-15] MEDS: HYDROmorphone 0.5 mg/0.5 ml ISec IVP PRN (22:02)
[2017-06-15] MEDS ORDERED: Pneumococcal 23-Valent Vaccine IM ONE (23:03)
[2017-06-15 23:06] LABS: PH,URINE 5.5 (4.7-8.0); URINE APPEARANCE CLEAR (CLEAR); URINE BILIRUBIN NEGATIVE (NEGATIVE); URINE BLOOD NEGATIVE (NEGATIVE); URINE COLOR YELLOW (YELLOW); URINE GLUCOSE (UA) 250 mg/dL (NEGATIVE); URINE PROTEIN 30 mg/dL (<30 mg/dL); URINE UROBILINOGEN 0.2 E.U./dL (<1 E.U./dL)
[2017-06-15 23:07] LABS: URINE BACTERIA MOD (NEG); URINE LEUKOCYTE ESTERASE Negative Leu/uL (NEGATIVE); URINE RBC NEGATIVE /hpf (0-2)
[2017-06-15] MEDS: Vancomycin 1gm in NS 250ml 1 GM/250 ML BAG IVPB SCH (23:33)
[2017-06-16] MEDS: HYDROmorphone 0.5 mg/0.5 ml ISec IVP PRN ×5 (01:19→20:04)
[2017-06-16] MEDS: metroNIDAZOLE IV 500 mg/100 ml 500 MG/100 ML BAG IVPB SCH ×3 (05:10→21:30)
[2017-06-16] MEDS: Aztreonam 1 Gm in NS 100mL 100 ML IVPB SCH ×3 (05:54→21:30)
[2017-06-16 07:10] LABS: HEMOGLOBIN 9.7 g/dL (12.0-16.0); MEAN CELL VOLUME 90.2 fl (80.0-105.0); MEAN CORPUSCULAR HEMOGLOBIN 28.8 pg (25.0-35.0); MEAN CORPUSCULAR HGB CONC 31.9 g/dl (31.0-37.0); MEAN PLATELET VOLUME 9.5 fl (7.0-11.0); RBC 3.37 10^6/uL (3.5-6.1); RED CELL DISTRIBUTION WIDTH 13.7 % (11.5-14.5); WHITE BLOOD COUNT 14.1 10^3/ul (4.5-11.0)
[2017-06-16 07:32] LABS: ALB/GLOB RATIO 1.1 (1.1-1.8); ALBUMIN 3.4 g/dL (3.0-4.8); ALT/SGPT 25 U/L (7-56); AST/SGOT 30 U/L (14-36); BLOOD UREA NITROGEN 23 mg/dL (7-21); CALCIUM 8.8 mg/dL (8.4-10.5); GFR AFRICAN-AMERICAN > 60; GFR NON-AFRICAN AMERICAN > 60
[2017-06-16] MEDS: Insulin Reg-LOW-Coverage SC SCH ×4 (08:04→21:26)
[2017-06-16] MEDS: Vancomycin 1gm in NS 250ml 1 GM/250 ML BAG IVPB SCH ×2 (10:16→23:36)
--- NOTE | 2017-06-16 10:21 | CARD ---
APPROVED REPORT EKG Measurement Heart [id number] <Conclusion> Sinus tachycardia Moderate voltage criteria for LVH, may be normal variant
--- NOTE | 2017-06-16 11:45 | CP.PCM.CON ---
History of Present Illness - History of Present Illness History of Present Illness: Palliative consult requested by Dr Aris Aponte Reason: Goals of care and advance care planning 62 year old female with history of HTN,DM and ovarian mass who was sentt from her oncologists office with complaints of diffuse abdominal pain,nausea, fever and chills.She denies headache, chest pain, numbness,dysuria. The patient newly diagnosed with ovarian cancer has not discussed treatment plan with oncologist yet. Chest x ray negative. CT scan of abdomen confirms ovarian mass, multiple large galls stones and mild ascites. Labs;WBC 20.9,HGB 11.9, PLT 528,BUN 23, Creat 0.9,LDH 1206, glucose 304. PMHx: HTN, DM, blind left eye PSH : right rotator cuff repair Social History: Non smoker, no alcohol or drug use. 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 Family History: Cardiac,brother of [place]. Advance Care Planning: The patient does not have an Advanced Directive. Review of Systems:As per HPI, otherwise negative 12 point review. Past Patient History - Past Social History Smoking Status: Never Smoked - CARDIAC Hx Cardiac Disorders: Yes Hx Hypertension: Yes - PULMONARY Hx Respiratory Disorders: No - NEUROLOGICAL Hx Neurological Disorder: No - HEENT Hx HEENT Problems: Yes Hx Blind: Yes (left eye) Other/Comment: Meniere's Disease - RENAL Hx Chronic Kidney Disease: No - ENDOCRINE/METABOLIC Hx Diabetes Mellitus Type 2: Yes - HEMATOLOGICAL/ONCOLOGICAL Hx Blood Disorders: No - INTEGUMENTARY Hx Dermatological Problems: No - MUSCULOSKELETAL/RHEUMATOLOGICAL Hx Falls: No - GASTROINTESTINAL Hx Gastrointestinal Disorders: Yes Other/Comment: Peritonitis - GENITOURINARY/GYNECOLOGICAL Hx Genitourinary Disorders: No - PSYCHIATRIC Hx Psychophysiologic Disorder: No - SURGICAL HISTORY Hx Orthopedic Surgery: Yes (right rotator cuff) Meds Allergies/Adverse Reactions: Allergies Allergy/AdvReac Type Severity Reaction Status Date / Time Penicillins Allergy URTICARIA Verified 06/15/17 15:11 acetaminophen [From Percocet] AdvReac DIZZINESS Verified 06/15/17 15:11 aspirin AdvReac PAIN Verified 06/15/17 15:11 oxycodone AdvReac DIZZINESS Verified 06/15/17 15:11 - Medications Medications: Current Medications Fentanyl (Duragesic) 1 patch TD Q72H SAM Last Admin: 06/16/17 03:16 Dose: Not Given Hydromorphone HCl (Dilaudid) 1 mg IVP Q4H PRN PRN Reason: Pain, severe (8-10) Last Admin: 06/16/17 10:09 Dose: 1 mg Hydromorphone HCl (Dilaudid) 2 mg PO Q4 PRN PRN Reason: Pain, moderate (4-7) Aztreonam (Azactam 1 Gm) 100 mls @ 100 mls/hr IVPB Q8 SAM PRN Reason: Protocol Stop: 06/25/17 06:01 Last Admin: 06/16/17 05:54 Dose: 100 mls/hr Metronidazole (Flagyl) 500 mg in 100 mls @ 100 mls/hr IVPB Q8 SAM PRN Reason: Protocol Stop: 06/25/17 06:01 Last Admin: 06/16/17 05:10 Dose: 100 mls/hr Vancomycin HCl (Vancomycin 1gm) 1 gm in 250 mls @ 167 mls/hr IVPB Q12H SAM PRN Reason: Protocol Stop: 06/24/17 23:16 Last Admin: 06/16/17 10:16 Dose: 167 mls/hr Insulin Human Regular (Humulin R Low) 0 units SC ACHS SAM PRN Reason: Protocol Last Admin: 06/16/17 08:04 Dose: 1 units Ondansetron HCl (Zofran Inj) 4 mg IVP Q4H [facility] Last Admin: 06/16/17 06:50 Dose: Not Given Physical Exam - Head Exam Head Exam: NORMAL INSPECTION - ENT Exam ENT Exam: Mucous Membranes Moist, Normal Oropharynx - Neck Exam Neck exam: Positive for: Normal Inspection - Respiratory Exam Respiratory Exam: Clear to Auscultation Bilateral, NORMAL BREATHING PATTERN - Cardiovascular Exam Cardiovascular Exam: Tachycardia, +S1, +S2 - GI/Abdominal Exam GI & Abdominal Exam: Normal Bowel Sounds Additional comments: diffuse abdominal tenderness - Exam Exam: NORMAL INSPECTION - Extremities Exam Extremities exam: Positive for: normal capillary refill, normal inspection - Back Exam Back exam: NORMAL INSPECTION - Neurological Exam Neurological exam: Alert, Oriented x3 - Skin Skin Exam: Dry, Pallor, Warm - Additional Findings Additional findings: Palliative performance scale rating 80% Results - Vital Signs Recent Vital Signs: Last Vital Signs Temp 98.3 F 06/16/17 00:39 Pulse 107 H 06/16/17 00:39 Resp 16 06/16/17 00:39 BP 120/73 06/16/17 00:39 Pulse Ox 98 06/16/17 00:39 - Labs Result Diagrams: 06/16/17 06:50 06/16/17 06:50 Labs: Laboratory Results - last 24 hr 06/15/17 06/16/17 06/16/17 21:54 06:50 06:50 WBC 14.1 H D RBC 3.37 L Hgb 9.7 L D Hct 30.4 L MCV 90.2 MCH 28.8 MCHC 31.9 RDW 13.7 Plt Count 458 H MPV 9.5 Sodium 134 Potassium 4.7 Chloride 101 Carbon Dioxide 26 Anion Gap 12 BUN 23 H Creatinine 0.9 Est GFR ( Amer) > 60 Est GFR (Non-Af Amer) > 60 POC Glucose (mg/dL) 238 H Random Glucose 236 H Calcium 8.8 Phosphorus 3.5 Magnesium 1.9 Total Bilirubin 0.6 AST 30 ALT 25 Alkaline Phosphatase 74 Total Protein 6.4 Albumin 3.4 Globulin 3.0 Albumin/Globulin Ratio 1.1 06/16/17 07:12 WBC RBC Hgb Hct MCV MCH MCHC RDW Plt Count MPV Sodium Potassium Chloride Carbon Dioxide Anion Gap BUN Creatinine Est GFR ( Amer) Est GFR (Non-Af Amer) POC Glucose (mg/dL) 222 H Random Glucose Calcium Phosphorus Magnesium Total Bilirubin AST ALT Alkaline Phosphatase Total Protein Albumin Globulin Albumin/Globulin Ratio Assessment & Plan - Assessment and Plan (Free Text) Assessment: 62 year old female with history of HTN, DM and ovarian cancer who is admitted with sepsis, abdominal pain and hyperglycemia. The patient is alert, oriented mildly anxious. States she was just diagnosed with ovarian cancer and has not had the opportunity to discuss a treatment plan with her oncologist Her pain is is diffuse but has more tenderness in RUQ upon examination. She states her pain level is 8 but is somewhat relieved with IV Dilaudid. She also has a Fentanyl 25 mcg patch. When asked if she had a medical POA or advance directive she stated she did not. She is a with no children. When asked about siblings she explained that her only brother had and that she had very distant relatives in [place], but does not keep in touch with them. Explained that in light of current diagnosis it would be prudent to designate a POA and/or initiate and advanced directive so that her medical wishes could be honored. She states she hasn't had the time to think about "all of this and doesn't have anyone in mind. 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 She states she is to tired and weak to think about this subject at this point in time. Reassured her that I would revisit and assist her with making plan for goals of care and advance directive. Psychosocial support offered. Spiritual support declined Time spent in goal of care discussion, 20 minutes Plan: Goals of care and advance care planning Hyperglycemia: Monitor glucose, continue Humalin R as ordered. Pain: Fentanyl 25mcg transdermal patch. Continue Dilaudid 1mg IV for moderate breakthrough pain. Would discontinue Dilaudid 2 mg PO. Will start Colace, monitor for constipation. Sepsis: Vancomycin,Azactam and Flagyl.Segundo cultures. ID recommendations Nausea: Continue Zofran as ordered.
--- NOTE | 2017-06-16 16:44 | HP ---
CHIEF COMPLAINT AND HISTORY OF PRESENT ILLNESS: This is a 62-year-old female who had come into the hospital because of intractable abdominal pain. The patient was having severe pain secondary to recent diagnosis of ovarian cancer. She had gone to see her oncologist, Dr. Serna, and was sent into the ER for further evaluation. The patient says that she is having chills as well. She was having so much pain, she felt as if she was going to pass out, it was 10/10. She was not able to walk well because of the pain. She has no dysuria, frequency. No headaches, no dizziness. The patient does have a history of diabetes, hypertension. REVIEW OF SYSTEMS: All other review of symptoms are within normal limits except what was mentioned. ALLERGIES: TO PENICILLIN, ACETAMINOPHEN, OXYCODONE, AND ASPIRIN. FAMILY HISTORY: Noncontributory. PAST SURGICAL HISTORY: Rotator cuff surgery. PAST MEDICAL HISTORY: Diabetes type 2, hypertension. PHYSICAL EXAMINATION: VITAL SIGNS: The patient has a temperature of 98.3, pulse of 107, blood pressure 120/73, respirations 16, O2 saturation 98%. GENERAL: The patient lying in bed, uncomfortable, and in no acute distress. HEENT: Atraumatic and normocephalic. Anicteric sclerae. Moist mucosa. [place] conjunctivae. No oral lesions. NECK: No JVD, anterior and posterior adenopathy, thyromegaly, or bruits. CARDIOVASCULAR: S1 and S2 regular. No murmur, rubs, or gallop. LUNGS: Clear to auscultation bilaterally. No wheezes, rales, or rhonchi. ABDOMEN: Bowel sounds are positive. Soft, nontender and nondistended. No hepatosplenomegaly. No rebound and no guarding. EXTREMITIES: No cyanosis, clubbing, or edema. NEUROLOGIC: No facial asymmetry. Tongue is midline. No uvula deviation. Power is 5/5 upper extremity and lower extremity. Sensation intact in upper extremity and lower extremity. PSYCHIATRIC: She is awake, alert and oriented x3. No anxiety or depression. She has normal affect. GENITOURINARY: No CVA tenderness. VASCULAR: 2+ pulses in the carotid pulses and pedal pulses. SKIN: No erythema or nodules SPINE: Shows normal curvature. LABORATORY DATA: Shows white count of 20.8, hemoglobin is 11.9, platelet count is 528. Chemistry shows a sodium 134, potassium 5, creatinine 0.9. LDH is 1206. CT of the abdomen and pelvis done shows a complex cyst and solid mass in the pelvis that is suspicious for ovarian cancer, measures 11.7 x 11.3 cm. There are mild ascites, multiple large gallstones. ASSESSMENT: 1. Abdominal pain secondary to ovarian neoplasm. 2. Hypertension. 3. Diabetes type 2. 4. Cholelithiasis. PLAN: The patient is currently on antibiotics with aztreonam. The patient was started on a fentanyl patch for pain. She is on Dilaudid for pain. The patient is receiving Zofran. She is on a heart-healthy diet. The patient had blood cultures, urine cultures done. I will get Dr. Lee to evaluate the patient. She will need advance directives as the patient does not have any immediate family that is living in the area. The patient's next of kin is in [place] which is her brother. The patient will need advance directives. I will also have Dr. Serna from Oncology see the patient. The patient will get repeat blood work tomorrow. She says her pain is better. She does not wish to use oxycodone, so I will place her on Dilaudid for pain. Mauricio Aponte MD
--- NOTE | 2017-06-16 20:56 | CP.PCM.CON ---
History of Present Illness - History of Present Illness History of Present Illness: 62 year old female with PMH of DM, HTN, obesity with BMI 37 came in to [facility] complaining of worsening left lower abdominal pain. She was recently found to have a left ovarian mass and biopsy was done showing ovarian cancer. She has some nausea and an episode of vomiting, but no diarrhea, no cough or colds, no fever or chills, no chest pain, no headache or dizziness, no dysuria. She is noted to have leukocytosis and Infectious Diseases consult is requested to further evaluate and manage. Review of Systems - Review of Systems All systems: reviewed and no additional remarkable complaints except (as per HPI ) Past Patient History - Past Social History Smoking Status: Never Smoked - CARDIAC Hx Cardiac Disorders: Yes Hx Hypertension: Yes - PULMONARY Hx Respiratory Disorders: No - NEUROLOGICAL Hx Neurological Disorder: No - HEENT Hx HEENT Problems: Yes Hx Blind: Yes (left eye) Other/Comment: Meniere's Disease - RENAL Hx Chronic Kidney Disease: No - ENDOCRINE/METABOLIC Hx Diabetes Mellitus Type 2: Yes - HEMATOLOGICAL/ONCOLOGICAL Hx Blood Disorders: No - INTEGUMENTARY Hx Dermatological Problems: No - MUSCULOSKELETAL/RHEUMATOLOGICAL Hx Falls: No - GASTROINTESTINAL Hx Gastrointestinal Disorders: Yes Other/Comment: Peritonitis - GENITOURINARY/GYNECOLOGICAL Hx Genitourinary Disorders: No - PSYCHIATRIC Hx Psychophysiologic Disorder: No - SURGICAL HISTORY Hx Orthopedic Surgery: Yes (right rotator cuff) Meds Allergies/Adverse Reactions: Allergies Allergy/AdvReac Type Severity Reaction Status Date / Time Penicillins Allergy URTICARIA Verified 06/15/17 15:11 acetaminophen [From Percocet] AdvReac DIZZINESS Verified 06/15/17 15:11 aspirin AdvReac PAIN Verified 06/15/17 15:11 oxycodone AdvReac DIZZINESS Verified 06/15/17 15:11 - Medications Medications: Current Medications Docusate Sodium (Colace) 100 mg PO BID SAM Fentanyl (Duragesic) 1 patch TD Q72H SAM Last Admin: 06/16/17 03:16 Dose: Not Given Hydromorphone HCl (Dilaudid) 1 mg IVP Q4H PRN PRN Reason: Pain, severe (8-10) Last Admin: 06/16/17 10:09 Dose: 1 mg Hydromorphone HCl (Dilaudid) 2 mg PO Q4 PRN PRN Reason: Pain, moderate (4-7) Aztreonam (Azactam 1 Gm) 100 mls @ 100 mls/hr IVPB Q8 SAM PRN Reason: Protocol Stop: 06/25/17 06:01 Last Admin: 06/16/17 05:54 Dose: 100 mls/hr Metronidazole (Flagyl) 500 mg in 100 mls @ 100 mls/hr IVPB Q8 SAM PRN Reason: Protocol Stop: 06/25/17 06:01 Last Admin: 06/16/17 05:10 Dose: 100 mls/hr Vancomycin HCl (Vancomycin 1gm) 1 gm in 250 mls @ 167 mls/hr IVPB Q12H SAM PRN Reason: Protocol Stop: 06/24/17 23:16 Last Admin: 06/16/17 10:16 Dose: 167 mls/hr Insulin Human Regular (Humulin R Low) 0 units SC ACHS SAM PRN Reason: Protocol Last Admin: 06/16/17 08:04 Dose: 1 units Ondansetron HCl (Zofran Inj) 4 mg IVP Q4H SAM Last Admin: 06/16/17 06:50 Dose: Not Given Physical Exam - Constitutional Appears: Chronically Ill - Head Exam Head Exam: NORMAL INSPECTION - Neck Exam Neck exam: Negative for: Lymphadenopathy, Meningismus - Respiratory Exam Respiratory Exam: Decreased Breath Sounds - Cardiovascular Exam Cardiovascular Exam: +S1, +S2 - GI/Abdominal Exam GI & Abdominal Exam: Soft. absent: Tenderness Results - Vital Signs Recent Vital Signs: Last Vital Signs Temp 98.3 F 06/16/17 00:39 Pulse 107 H 06/16/17 00:39 Resp 16 06/16/17 00:39 BP 120/73 06/16/17 00:39 Pulse Ox 98 06/16/17 00:39 - Labs Result Diagrams: 06/16/17 06:50 06/16/17 06:50 Labs: Laboratory Results - last 24 hr 06/15/17 06/16/17 06/16/17 21:54 06:50 06:50 WBC 14.1 H D RBC 3.37 L Hgb 9.7 L D Hct 30.4 L MCV 90.2 MCH 28.8 MCHC 31.9 RDW 13.7 Plt Count 458 H MPV 9.5 Sodium 134 Potassium 4.7 Chloride 101 Carbon Dioxide 26 Anion Gap 12 BUN 23 H Creatinine 0.9 Est GFR ( Amer) > 60 Est GFR (Non-Af Amer) > 60 POC Glucose (mg/dL) 238 H Random Glucose 236 H Calcium 8.8 Phosphorus 3.5 Magnesium 1.9 Total Bilirubin 0.6 AST 30 ALT 25 Alkaline Phosphatase 74 Total Protein 6.4 Albumin 3.4 Globulin 3.0 Albumin/Globulin Ratio 1.1 06/16/17 07:12 WBC RBC Hgb Hct MCV MCH MCHC RDW Plt Count MPV Sodium Potassium Chloride Carbon Dioxide Anion Gap BUN Creatinine Est GFR ( Amer) Est GFR (Non-Af Amer) POC Glucose (mg/dL) 222 H Random Glucose Calcium Phosphorus Magnesium Total Bilirubin AST ALT Alkaline Phosphatase Total Protein Albumin Globulin Albumin/Globulin Ratio Assessment & Plan - Assessment and Plan (Free Text) Plan: Assessment Systemic inflammatory response syndrome, consider due to ovarian cancer R/O sepsis from intra-abdominal infection DM HTN obesity with BMI 37 Plan Started the patient on Vancomycin, Azactam and Flagyl pending blood cx; reviewed CT A/P showing ovarian mass will monitor clinically overall prognosis is poor
--- NOTE | 2017-06-17 00:15 | CON ---
DATE: CONSULTATION REQUESTED BY: Dr. Aponte. REASON FOR CONSULTATION: Malignant neoplasm in the abdomen. HISTORY OF PRESENT ILLNESS: Ms. Arshad is a 62-year-old female presented to the office yesterday with lower abdominal pain. She was referred to the ER for admission and pain control. She was recently diagnosed with malignant neoplasm in the abdomen, very likely ovarian. She developed abdominal pain for past 1 day with nausea and vomiting, vomited a few times yesterday. In the ED, white count was found to be elevated at 20,000. Concern was for sepsis. Urine culture, blood culture have been negative. She is currently on Fentanyl patch and Dilaudid IV p.r.n. Pain is better controlled. White count declined to 14,000. Hemoglobin was 11.9, declined to 9.7. REVIEW OF SYSTEMS: As per HPI. Rest of 12-point systems reviewed and negative. ALLERGIES: PENICILLIN, TYLENOL, CODEINE AND ASPIRIN. FAMILY HISTORY: Noncontributory. PAST SURGICAL HISTORY: Rotator cuff surgery. PAST MEDICAL HISTORY: Diabetes mellitus type 2, hypertension. PHYSICAL EXAMINATION: GENERAL: Comfortable in bed, in no acute distress. VITAL SIGNS: Temperature 98.7, heart rate 80 per minute, blood pressure 110/70, respiratory rate 15 per minute, oxygen saturation 98% on room air. HEENT: PERRLA positive. NECK: No lymphadenopathy. CHEST: Air entry present and equal bilaterally. No added sound. CARDIOVASCULAR: S1 and S2 normal. No murmur. No gallop. ABDOMEN: Soft, nontender. No hepatosplenomegaly. EXTREMITIES: No edema. NEUROLOGIC: Awake, alert and oriented x3. No focal sensory or motor deficit. CAT scan of the abdomen showed ovarian mass, 11.7 cm in the pelvis, multiple large gallstones. ASSESSMENT: 1. Malignant neoplasm, large pelvic mass, likely ovarian, biopsy positive for malignancy, reason not certain. 2. Hypertension. 3. Diabetes mellitus type 2. 4. Cholelithiasis. PLAN: Pain control, pain is better controlled with Fentanyl patch 25 mcg, which will be started today and Dilaudid p.r.n. I will consider long-acting morphine if pain is not controlled by tomorrow, transition Dilaudid to oral. Senna and Colace for prophylaxis. She is currently on IV antibiotics aztreonam, Flagyl and vanco as per Dr. Lee. Urine culture and blood culture are negative. Angelo merritt Management of abdominal malignancy likely ovarian. She will need workup if we find the primary malignancy. We will do the PET scan. We will schedule the PET scan upon discharge from the hospital. She will be referred to Gynecology Oncology if no other focus of malignancy identified on PET scan. I have discussed the plan of management with the patient in the office and in the ER. Thank you Dr. Aponte for allowing us to participate in Ms. Arshad's care. Amelie Serna MD
[2017-06-17] MEDS: HYDROmorphone 0.5 mg/0.5 ml ISec IVP PRN ×3 (00:51→11:08)
[2017-06-17] MEDS: metroNIDAZOLE IV 500 mg/100 ml 500 MG/100 ML BAG IVPB SCH ×3 (05:03→23:05)
[2017-06-17] MEDS: Aztreonam 1 Gm in NS 100mL 100 ML IVPB SCH ×3 (05:04→21:20)
[2017-06-17 07:18] LABS: HEMOGLOBIN 8.7 g/dL (12.0-16.0); MEAN CELL VOLUME 90.1 fl (80.0-105.0); MEAN CORPUSCULAR HEMOGLOBIN 28.7 pg (25.0-35.0); MEAN CORPUSCULAR HGB CONC 31.9 g/dl (31.0-37.0); MEAN PLATELET VOLUME 9.3 fl (7.0-11.0); RBC 3.03 10^6/uL (3.5-6.1); RED CELL DISTRIBUTION WIDTH 13.9 % (11.5-14.5)
[2017-06-17 07:40] LABS: ALB/GLOB RATIO 1.1 (1.1-1.8); ALBUMIN 3.2 g/dL (3.0-4.8); ALT/SGPT 23 U/L (7-56); AST/SGOT 30 U/L (14-36); BLOOD UREA NITROGEN 19 mg/dL (7-21); CALCIUM 8.6 mg/dL (8.4-10.5); GFR AFRICAN-AMERICAN > 60; GFR NON-AFRICAN AMERICAN > 60
[2017-06-17] MEDS: Insulin Reg-LOW-Coverage SC SCH ×4 (09:01→21:29)
[2017-06-17] MEDS: Vancomycin 1gm in NS 250ml 1 GM/250 ML BAG IVPB SCH (10:38)
--- NOTE | 2017-06-17 11:57 | PN ---
DATE: 06/17/2017 SUBJECTIVE: The patient has no complaints of any chest pain or shortness of breath. She continues to have pain that is 8/10 in her belly. PHYSICAL EXAMINATION: VITAL SIGNS: Temperature is 98.6, pulse of 112, blood pressure 143/87, respirations 19. GENERAL: The patient is lying in bed, flat, comfortable. HEENT: No oral lesion. Anicteric sclerae. Moist mucosa. NECK: No JVD, adenopathy, or thyromegaly. CARDIOVASCULAR: S1 and S2, regular. No murmurs, rubs, or gallops. LUNGS: Clear to auscultation bilaterally. No wheeze, rales, or rhonchi. ABDOMEN: Bowel sounds are positive. Soft, nontender and nondistended. EXTREMITIES: No cyanosis, clubbing or edema. LABS: White count is 14, hemoglobin 8.7, creatinine is 0.7. Blood cultures x2 have been negative. ASSESSMENT: 1. Abdominal pain secondary to ovarian neoplasm. 2. Hypertension. 3. Diabetes type 2. 4. Leukocytosis. 5. Cholelithiasis. PLAN: The patient is currently admitted to the hospital. The patient's pain is still not well controlled. I will increase the patient's fentanyl patch to 50 mcg. She is on Dilaudid IV as well as p.o. The patient does not wish to take oxycodone or Percocet as she states that she has had issues with these medications before. She will need Systems Software Engineer/Oncology to evaluate further. She is receiving IV antibiotics from Infectious Disease. Urine cultures are still pending. She is on aztreonam because of herPENICILLIN ALLERGY. She is on Colace for constipation and the patient is on the fentanyl patch. She is on Zofran as needed. She is on a heart-healthy diet. Mauricio Aponte MD
--- NOTE | 2017-06-17 12:44 | CP.PCM.PN ---
Subjective - Date & Time of Evaluation Date of Evaluation: 06/17/17 Time of Evaluation: 11:00 - Subjective Subjective: Complaining of abdominal pain and nausea, did not vomit. No BM Objective - Vital Signs/Intake and Output Vital Signs (last 24 hours): Temp Pulse Resp BP Pulse Ox 98.6 F 112 H 19 143/87 90 L 06/17/17 08:27 06/17/17 08:27 06/17/17 08:27 06/17/17 08:27 06/17/17 08:27 Intake and Output: 06/17/17 06/17/17 06:59 18:59 Intake Total 1390 Output Total 0 Balance 1390 - Medications Medications: Current Medications Docusate Sodium (Colace) 100 mg PO BID [facility] TO [facility] Last Admin: 06/17/17 09:01 Dose: 100 mg Fentanyl (Duragesic) 1 patch TD Q72H [facility] Last Admin: 06/17/17 11:00 Dose: 1 patch Hydromorphone HCl (Dilaudid) 1 mg IVP Q4H PRN PRN Reason: Pain, severe (8-10) Last Admin: 06/17/17 11:08 Dose: 1 mg Hydromorphone HCl (Dilaudid) 2 mg PO Q4 PRN PRN Reason: Pain, moderate (4-7) Last Admin: 06/16/17 21:40 Dose: 2 mg Aztreonam (Azactam 1 Gm) 100 mls @ 100 mls/hr IVPB Q8 SAM PRN Reason: Protocol Stop: 06/25/17 06:01 Last Admin: 06/17/17 05:04 Dose: 100 mls/hr Metronidazole (Flagyl) 500 mg in 100 mls @ 100 mls/hr IVPB Q8 SAM PRN Reason: Protocol Stop: 06/25/17 06:01 Last Admin: 06/17/17 05:03 Dose: 100 mls/hr Vancomycin HCl (Vancomycin 1gm) 1 gm in 250 mls @ 167 mls/hr IVPB Q12H SAM PRN Reason: Protocol Stop: 06/24/17 23:16 Last Admin: 06/17/17 10:38 Dose: 167 mls/hr Insulin Human Regular (Humulin R Low) 0 units SC ACHS SAM PRN Reason: Protocol Last Admin: 06/17/17 11:54 Dose: 2 units Metformin HCl (Glucophage) 1,000 mg PO DAILY SAM Last Admin: 06/17/17 10:37 Dose: 1,000 mg Ondansetron HCl (Zofran Inj) 4 mg IVP Q6H PRN PRN Reason: Nausea/Vomiting Last Admin: 06/17/17 11:14 Dose: 4 mg - Labs Labs: 06/17/17 06:00 06/17/17 06:45 PT 13.2 SECONDS (9.4-12.5) H 06/15/17 15:36 INR 1.15 (0.93-1.08) H 06/15/17 15:36 APTT 25.8 Seconds (25.1-36.5) 06/15/17 15:36 - Constitutional Appears: Chronically Ill - Eye Exam Additional comments: right pupil equal and reactive to light, blind in left eye - ENT Exam ENT Exam: Mucous Membranes Moist - Respiratory Exam Respiratory Exam: Decreased Breath Sounds, NORMAL BREATHING PATTERN - Cardiovascular Exam Cardiovascular Exam: Tachycardia, +S1, +S2 - GI/Abdominal Exam GI & Abdominal Exam: Firm, Hypoactive Bowel Sounds - Extremities Exam Extremities Exam: Normal Capillary Refill, Pedal Edema - Back Exam Back Exam: NORMAL INSPECTION - Neurological Exam Neurological Exam: Alert, Oriented x3 - Skin Skin Exam: Dry, Pallor Assessment and Plan - Assessment and Plan (Free Text) Assessment: 62 year old female with history of blindness in left eye, ovarian cancer, DM, HTN who was admitted with sepsis, abdominal pain and nausea. The patient is anxious. States she is still has significant significant abdominal pain despite being medicated. She also complains of nausea, does nto want to eat, no vomiting. Has not had a BM since prior to admission, states she is passing gas. Refusing Ducolax suppository. Abdomen distended, slightly firmer than yesterday Patient has not had a chance to think about naming a health care proxy nor completing and advanced directive. Not feeling up to disusing at this time. Plan: Goals of care and advance care planning Abdominal Pain: Surgical consult regarding gall stones, r/o obstruction
[2017-06-17] MEDS ORDERED: HYDROmorphone 0.5 mg/0.5 ml ISec IVP PRN (13:15)
--- NOTE | 2017-06-17 14:38 | RAD ---
HISTORY: intractable abdominal pain COMPARISON: No prior. FINDINGS: BOWEL: Multiple moderately dilated loops of small bowel are seen in the mid abdomen consistent with small bowel obstruction or ileus. The colon is unremarkable BONES: Normal. OTHER FINDINGS: None. IMPRESSION: Multiple moderately dilated loops of small bowel are seen in the mid abdomen consistent with small bowel obstruction or ileus.
[2017-06-17] MEDS ORDERED: TETRACAINE/BENZOCAINE/BUTAMBEN 20 GM SPRAY TP STA (17:49)
--- NOTE | 2017-06-17 20:46 | CP.PCM.PN ---
Subjective - Date & Time of Evaluation Date of Evaluation: 06/17/17 Time of Evaluation: 20:38 - Subjective Subjective: General Surgery Pt is a 62F with PMH of ovarian CA, HTN and DM. Pt presents with LLQ abdominal pain, N/V. Patient had similar sx in last admission. Found to have [id number] L complex cystic ovarian mass. Bx was performed and showed ovarian CA. Pt was admitted for sepsis w WBC of 21, tachycardia. Surgery is consulted to evaluate for SBO. Pt states it was a dull ache for most of the week until last night when it became a sharp pain, with associated nausea and vomiting. Last BM was before admission and hasb't had BM for 2 days. VOmiting worsen today. Started w gatric content then billious now. Pt had multiple episodes of vomiting today. Admits to having normal bowel movements throughout the past week. Denies chest pain, hematemsis, dysuria,hematemesis, vaginal bleeding or hematochezia. CT of the abd 2 days ago shows L ovarian cystic mass, ascites. AXR today shows multiple loops of dilated SB. NGT was attempted. 200cc bilious fluids aspirated. Pt vomited while NGT placement and refused it. NGT was DCed. Benefits of NGT for SBO was explained prior to insertion. Pt agreed but was unable to tolerate it. PMH: HTN. DM PSH: denies ALL: penicillins, aspirin Objective - Vital Signs/Intake and Output Vital Signs (last 24 hours): Temp Pulse Resp BP Pulse Ox 98.3 F 114 H 19 166/93 H 96 06/17/17 16:00 06/17/17 16:00 06/17/17 16:00 06/17/17 16:00 06/17/17 16:00 Intake and Output: 06/17/17 06/18/17 18:59 06:59 Intake Total 540 Balance 540 - Medications Medications: Current Medications Docusate Sodium (Colace) 100 mg PO BID [facility] Last Admin: 06/17/17 09:01 Dose: 100 mg Fentanyl (Duragesic) 1 patch TD Q72H [facility] Last Admin: 06/17/17 11:00 Dose: 1 patch Hydromorphone HCl (Dilaudid) 2 mg PO Q4 PRN PRN Reason: Pain, moderate (4-7) Last Admin: 06/16/17 21:40 Dose: 2 mg Hydromorphone HCl (Dilaudid) 2 mg IVP Q4H PRN PRN Reason: Pain, severe (8-10) Aztreonam (Azactam 1 Gm) 100 mls @ 100 mls/hr IVPB Q8 [facility] PRN Reason: Protocol Stop: 06/25/17 06:01 Last Admin: 06/17/17 13:36 Dose: 100 mls/hr Metronidazole (Flagyl) 500 mg in 100 mls @ 100 mls/hr IVPB Q8 [facility] PRN Reason: Protocol Stop: 06/25/17 06:01 Last Admin: 06/17/17 13:37 Dose: 100 mls/hr Vancomycin HCl (Vancomycin 1gm) 1 gm in 250 mls @ 167 mls/hr IVPB Q12H [facility] PRN Reason: Protocol Stop: 06/24/17 23:16 Last Admin: 06/17/17 10:38 Dose: 167 mls/hr Sodium Chloride (Sodium Chloride 0.9%) 1,000 mls @ 80 mls/hr IV .[id number] [facility] Insulin Human Regular (Humulin R Low) 0 units SC ACHS [facility] PRN Reason: Protocol Last Admin: 06/17/17 16:53 Dose: 4 units Metformin HCl (Glucophage) 1,000 mg PO DAILY [facility] Last Admin: 06/17/17 10:37 Dose: 1,000 mg Ondansetron HCl (Zofran Inj) 8 mg IVP Q6H [facility] - Labs Labs: 06/17/17 06:00 06/17/17 06:45 PT 13.2 SECONDS (9.4-12.5) H 06/15/17 15:36 INR 1.15 (0.93-1.08) H 06/15/17 15:36 APTT 25.8 Seconds (25.1-36.5) 06/15/17 15:36 - Constitutional Appears: In Acute Distress - Head Exam Head Exam: ATRAUMATIC, NORMAL INSPECTION, NORMOCEPHALIC - Eye Exam Eye Exam: absent: EOMI, Normal appearance Additional comments: Legally blind - ENT Exam ENT Exam: Mucous Membranes Moist, Normal Exam - Neck Exam Neck Exam: Full ROM, Normal Inspection. absent: Lymphadenopathy - Respiratory Exam Respiratory Exam: Clear to Ausculation Bilateral, NORMAL BREATHING PATTERN - Cardiovascular Exam Cardiovascular Exam: Tachycardia, REGULAR RHYTHM, +S1, +S2. absent: Murmur - GI/Abdominal Exam GI & Abdominal Exam: Distended, Soft, Tenderness, Normal Bowel Sounds. absent: Firm, Guarding, Rigid - Exam Exam: NORMAL INSPECTION - Extremities Exam Extremities Exam: Full ROM, Normal Capillary Refill, Normal Inspection. absent : Joint Swelling, Pedal Edema - Back Exam Back Exam: NORMAL INSPECTION - Neurological Exam Neurological Exam: Alert, Awake, CN II-XII Intact, Normal Gait, Oriented x3 - Psychiatric Exam Psychiatric exam: Normal Affect, Normal Mood - Skin Skin Exam: Dry, Intact, Normal Color, Warm Assessment and Plan - Assessment and Plan (Free Text) Assessment: SBO v ileus -NPO -IVF -NGT if she can tolerate -Serial abd exam DW Dr. Petersen
[2017-06-17] MEDS: Sodium Chloride 0.9% 1,000 ML IV SCH (21:23)
--- NOTE | 2017-06-17 22:39 | PN ---
DATE: 06/17/2017 SUBJECTIVE: Patient is in bed, in no acute distress, nontoxic. PHYSICAL EXAMINATION: VITAL SIGNS: Temperature is 98, blood pressure 140/80, respiratory rate of 18, heart rate of 112. HEENT: Unremarkable. NECK: Supple. LUNGS: Have decreased breath sounds. HEART: Normal S1 and S2. ABDOMEN: Soft. LABORATORY EXAMINATION: Reveals the patient's white count of 14,000, hemoglobin of 8.7, platelets of 377. BUN of 19, creatinine of 0.7. Urinalysis is noted. Microbiology reveals the blood culture is negative. Urine culture is negative. ASSESSMENT AND PLAN: A 62-year-old with systemic inflammatory response syndrome, ovarian cancer, diabetes, hypertension, obesity, on vancomycin, Azactam and Flagyl. Review of the orders reveals the Azactam and vancomycin to be active. Jorge Lee MD
[2017-06-18] MEDS: Vancomycin 1gm in NS 250ml 1 GM/250 ML BAG IVPB SCH ×2 (00:06→10:16)
[2017-06-18] MEDS: Aztreonam 1 Gm in NS 100mL 100 ML IVPB SCH ×3 (05:06→22:21)
[2017-06-18] MEDS: metroNIDAZOLE IV 500 mg/100 ml 500 MG/100 ML BAG IVPB SCH ×3 (06:10→22:22)
[2017-06-18 07:21] LABS: BASO # 0.02 K/mm3 (0.0-2.0); BASO % 0.1 % (0.0-3.0); EOS % 0.1 % (1.5-5.0); GRAN # 13.13 (1.4-6.5); GRAN % 83.7 % (50.0-68.0); HEMOGLOBIN 9.9 g/dL (12.0-16.0); LYMPH # 1.1 (1.2-3.4); LYMPH % 6.9 % (22.0-35.0); MEAN CELL VOLUME 89.7 fl (80.0-105.0); MEAN CORPUSCULAR HEMOGLOBIN 29.1 pg (25.0-35.0); MEAN CORPUSCULAR HGB CONC 32.5 g/dl (31.0-37.0); MEAN PLATELET VOLUME 9.6 fl (7.0-11.0); MONO # 1.4 (0.1-0.6); MONO % 9.2 % (1.0-6.0); RBC 3.4 10^6/uL (3.5-6.1); RED CELL DISTRIBUTION WIDTH 13.9 % (11.5-14.5); WHITE BLOOD COUNT 15.7 10^3/ul (4.5-11.0)
[2017-06-18 07:31] LABS: IRON 29 ug/dL (45-180)
[2017-06-18 07:58] LABS: % IRON SATURATION 15 % (20-55); TOTAL IRON BINDING CAPACITY 190 ug/dL (265-497)
[2017-06-18] MEDS: Insulin Reg-LOW-Coverage SC SCH ×3 (08:09→16:48)
--- NOTE | 2017-06-18 09:30 | CP.PCM.PN ---
Subjective - Date & Time of Evaluation Date of Evaluation: 06/18/17 Time of Evaluation: 09:27 - Subjective Subjective: Surgery: Dr. Petersen Pt seen and examined. Pt has no complaints of abd pain but she does have nausea and intermittent vomiting. No BM. Objective - Vital Signs/Intake and Output Vital Signs (last 24 hours): Temp Pulse Resp BP Pulse Ox 98.1 F 114 H 20 150/90 98 06/18/17 08:51 06/17/17 16:00 06/18/17 08:51 06/18/17 08:51 06/18/17 08:51 Intake and Output: 06/18/17 06/18/17 06:59 18:59 Intake Total 960 Balance 960 - Medications Medications: Current Medications Fentanyl (Duragesic) 1 patch TD Q72H [facility] Last Admin: 06/17/17 11:00 Dose: 1 patch Hydromorphone HCl (Dilaudid) 2 mg PO Q4 PRN PRN Reason: Pain, moderate (4-7) Last Admin: 06/16/17 21:40 Dose: 2 mg Hydromorphone HCl (Dilaudid) 2 mg IVP Q4H PRN PRN Reason: Pain, severe (8-10) Aztreonam (Azactam 1 Gm) 100 mls @ 100 mls/hr IVPB Q8 [facility] PRN Reason: Protocol Stop: 06/25/17 06:01 Last Admin: 06/18/17 05:06 Dose: 100 mls/hr Metronidazole (Flagyl) 500 mg in 100 mls @ 100 mls/hr IVPB Q8 [facility] PRN Reason: Protocol Stop: 06/25/17 06:01 Last Admin: 06/18/17 06:10 Dose: 100 mls/hr Vancomycin HCl (Vancomycin 1gm) 1 gm in 250 mls @ 167 mls/hr IVPB Q12H [facility] PRN Reason: Protocol Stop: 06/24/17 23:16 Last Admin: 06/18/17 00:06 Dose: 167 mls/hr Sodium Chloride (Sodium Chloride 0.9%) 1,000 mls @ 80 mls/hr IV .[id number] [facility] Last Admin: 06/17/17 21:23 Dose: 80 mls/hr Insulin Human Regular (Humulin R Low) 0 units SC ACHS [facility] PRN Reason: Protocol Last Admin: 06/18/17 08:09 Dose: Not Given Ondansetron HCl (Zofran Inj) 8 mg IVP Q6H [facility] Last Admin: 06/18/17 03:21 Dose: 8 mg - Labs Labs: 06/18/17 06:45 06/17/17 06:45 PT 13.2 SECONDS (9.4-12.5) H 06/15/17 15:36 INR 1.15 (0.93-1.08) H 06/15/17 15:36 APTT 25.8 Seconds (25.1-36.5) 06/15/17 15:36 - Constitutional Appears: Non-toxic, No Acute Distress - Head Exam Head Exam: ATRAUMATIC, NORMOCEPHALIC - Eye Exam Eye Exam: EOMI - ENT Exam ENT Exam: Mucous Membranes Moist - Neck Exam Neck Exam: Full ROM - Respiratory Exam Respiratory Exam: NORMAL BREATHING PATTERN. absent: Accessory Muscle Use, Respiratory Distress - GI/Abdominal Exam GI & Abdominal Exam: Soft. absent: Distended, Firm, Guarding, Rigid, Tenderness , Rebound - Extremities Exam Extremities Exam: absent: Calf Tenderness, Pedal Edema - Neurological Exam Neurological Exam: Alert, Awake, Oriented x3 Assessment and Plan - Assessment and Plan (Free Text) Assessment: 62F w. SBO vs ileus -keep NPO -serial abd exams -reattempt NGT if sxs worsen -out pt PET and [employer] f/u -d/w attending Zemaitis PGY3
[2017-06-18] MEDS: Sodium Chloride 0.9% 1,000 ML IV SCH (10:19)
--- NOTE | 2017-06-18 11:06 | PN ---
DATE: 06/18/2017 SUBJECTIVE: The patient has no complaints of any chest pain. No shortness of breath. She continues to have abdominal pain. She states that the pain is 8/10. She states the increase in Dilaudid does help. I also increased her fentanyl patch yesterday. PHYSICAL EXAMINATION: VITAL SIGNS: Temperature is 98.3, pulse 114, blood pressure is 166/93, respirations 19. GENERAL: The patient is lying in bed, flat, comfortable. HEENT: No oral lesion. Anicteric sclerae. Moist mucosa. NECK: No JVD, adenopathy, or thyromegaly. CARDIOVASCULAR: S1 and S2, regular. No murmurs, rubs, or gallops. LUNGS: Clear to auscultation bilaterally. No wheeze, rales, or rhonchi. ABDOMEN: Bowel sounds are positive, soft, nontender and nondistended. EXTREMITIES: No cyanosis, clubbing or edema. LABORATORY DATA: White count of 14, hemoglobin of 8.7, creatinine 0.7. DIAGNOSTIC DATA: Abdominal x-ray shows multiple moderately dilated loops of small bowel in the mid abdomen. ASSESSMENT: 1. Small bowel obstruction/ileus. 2. Ovarian neoplasm. 3. Acute on chronic pain, uncontrolled. 4. Hypertension. 5. Diabetes type 2. 6. Cholelithiasis. 7. Leukocytosis. PLAN: The patient had blood cultures and urine cultures that have been negative. She has probable ileus. She is being followed by Surgery. Patient is currently n.p.o. She is receiving IV fluids. The patient is on vancomycin for antibiotics. She is on metformin for her diabetes. I will hold her metformin because she is not able to take p.o. The patient is on fingersticks. She is on for antibiotics because of her PENICILLIN ALLERGY. She is on Zofran as needed for nausea. We will continue to follow the patient closely. She currently is a full code. Mauricio Aponte MD
--- NOTE | 2017-06-18 13:41 | CP.PCM.PN ---
Subjective - Date & Time of Evaluation Date of Evaluation: 06/18/17 Time of Evaluation: 11:30 - Subjective Subjective: Abdominal pain is a little better, but still with nausea, still with no appetite , still had vomiting yesterday. Objective - Vital Signs/Intake and Output Vital Signs (last 24 hours): Temp Pulse Resp BP Pulse Ox 98.1 F 114 H 20 150/90 98 06/18/17 08:51 06/17/17 16:00 06/18/17 08:51 06/18/17 08:51 06/18/17 08:51 Intake and Output: 06/18/17 06/18/17 06:59 18:59 Intake Total 960 Balance 960 - Medications Medications: Current Medications Fentanyl (Duragesic) 1 patch TD Q72H [facility] Last Admin: 06/17/17 11:00 Dose: 1 patch Hydromorphone HCl (Dilaudid) 2 mg PO Q4 PRN PRN Reason: Pain, moderate (4-7) Last Admin: 06/16/17 21:40 Dose: 2 mg Hydromorphone HCl (Dilaudid) 2 mg IVP Q4H PRN PRN Reason: Pain, severe (8-10) Aztreonam (Azactam 1 Gm) 100 mls @ 100 mls/hr IVPB Q8 [facility] PRN Reason: Protocol Stop: 06/25/17 06:01 Last Admin: 06/18/17 05:06 Dose: 100 mls/hr Metronidazole (Flagyl) 500 mg in 100 mls @ 100 mls/hr IVPB Q8 [facility] PRN Reason: Protocol Stop: 06/25/17 06:01 Last Admin: 06/18/17 06:10 Dose: 100 mls/hr Vancomycin HCl (Vancomycin 1gm) 1 gm in 250 mls @ 167 mls/hr IVPB Q12H [facility] PRN Reason: Protocol Stop: 06/24/17 23:16 Last Admin: 06/18/17 00:06 Dose: 167 mls/hr Sodium Chloride (Sodium Chloride 0.9%) 1,000 mls @ 80 mls/hr IV .[id number] [facility] Last Admin: 06/17/17 21:23 Dose: 80 mls/hr Insulin Human Regular (Humulin R Low) 0 units SC ACHS [facility] PRN Reason: Protocol Last Admin: 06/18/17 08:09 Dose: Not Given Ondansetron HCl (Zofran Inj) 8 mg IVP Q6H [facility] Last Admin: 06/18/17 03:21 Dose: 8 mg - Labs Labs: 06/18/17 06:45 06/17/17 06:45 PT 13.2 SECONDS (9.4-12.5) H 06/15/17 15:36 INR 1.15 (0.93-1.08) H 06/15/17 15:36 APTT 25.8 Seconds (25.1-36.5) 06/15/17 15:36 - Constitutional Appears: Chronically Ill - Head Exam Head Exam: NORMAL INSPECTION - ENT Exam ENT Exam: Mucous Membranes Moist - Neck Exam Neck Exam: absent: Meningismus - Respiratory Exam Respiratory Exam: Decreased Breath Sounds - Cardiovascular Exam Cardiovascular Exam: +S1, +S2 - GI/Abdominal Exam GI & Abdominal Exam: Soft. absent: Tenderness Assessment and Plan - Assessment and Plan (Free Text) Plan: Assessment Systemic inflammatory response syndrome, consider due to ovarian cancer and small bowel obstruction or ileus R/O sepsis from intra-abdominal infection DM HTN obesity with BMI 37 Plan continue Vancomycin, Azactam and Flagyl day 3; cultures have been negative; reviewed CT A/P showing ovarian mass will continue to monitor clinically and follow up further plans of GI overall prognosis is poor
[2017-06-18 14:46] LABS: FOLATE 5.7 ng/mL
[2017-06-18] MEDS ORDERED: HYDROmorphone 2 mg/ml ISec IVP PRN (14:57)
[2017-06-19] MEDS: Insulin Reg-LOW-Coverage SC SCH ×5 (00:58→23:16)
[2017-06-19] MEDS: Vancomycin 1gm in NS 250ml 1 GM/250 ML BAG IVPB SCH ×3 (01:55→23:14)
[2017-06-19] MEDS: Aztreonam 1 Gm in NS 100mL 100 ML IVPB SCH ×3 (05:03→21:05)
[2017-06-19] MEDS: metroNIDAZOLE IV 500 mg/100 ml 500 MG/100 ML BAG IVPB SCH ×3 (05:03→21:06)
--- NOTE | 2017-06-19 08:04 | CP.PCM.PN ---
Subjective - Date & Time of Evaluation Date of Evaluation: 06/19/17 Time of Evaluation: 08:03 - Subjective Subjective: Surgery: Dr. Petersen Pt seen and examined. She has no complaints of abd pain. She states that she feels like she needs to have BM but has been unable to. Appetite remains poor. She states that she would like to try CLD. Objective - Vital Signs/Intake and Output Vital Signs (last 24 hours): Temp Pulse Resp BP Pulse Ox 98.5 F 91 H 19 153/89 H 96 06/18/17 16:00 06/18/17 16:00 06/18/17 16:00 06/18/17 16:00 06/18/17 16:00 Intake and Output: 06/19/17 06/19/17 06:59 18:59 Intake Total 100 Balance 100 - Medications Medications: Current Medications Enoxaparin Sodium (Lovenox) 40 mg SC DAILY [facility] PRN Reason: Protocol Fentanyl (Duragesic) 1 patch TD Q72H [facility] Last Admin: 06/17/17 11:00 Dose: 1 patch Hydromorphone HCl (Dilaudid) 2 mg PO Q4 PRN PRN Reason: Pain, moderate (4-7) Last Admin: 06/16/17 21:40 Dose: 2 mg Hydromorphone HCl (Dilaudid) 2 mg IVP Q4H PRN PRN Reason: Pain, severe (8-10) Aztreonam (Azactam 1 Gm) 100 mls @ 100 mls/hr IVPB Q8 [facility] PRN Reason: Protocol Stop: 06/25/17 06:01 Last Admin: 06/19/17 05:03 Dose: 100 mls/hr Metronidazole (Flagyl) 500 mg in 100 mls @ 100 mls/hr IVPB Q8 [facility] PRN Reason: Protocol Stop: 06/25/17 06:01 Last Admin: 06/19/17 05:03 Dose: 100 mls/hr Vancomycin HCl (Vancomycin 1gm) 1 gm in 250 mls @ 167 mls/hr IVPB Q12H [facility] PRN Reason: Protocol Stop: 06/24/17 23:16 Last Admin: 06/19/17 01:55 Dose: 167 mls/hr Sodium Chloride (Sodium Chloride 0.9%) 1,000 mls @ 80 mls/hr IV .[id number] [facility] Last Admin: 06/18/17 10:19 Dose: 80 mls/hr Insulin Human Regular (Humulin R Low) 0 units SC ACHS [facility] PRN Reason: Protocol Last Admin: 06/19/17 00:58 Dose: Not Given Ondansetron HCl (Zofran Inj) 8 mg IVP Q6H [facility] Last Admin: 06/19/17 05:54 Dose: 8 mg - Labs Labs: 06/18/17 06:45 06/17/17 06:45 PT 13.2 SECONDS (9.4-12.5) H 06/15/17 15:36 INR 1.15 (0.93-1.08) H 06/15/17 15:36 APTT 25.8 Seconds (25.1-36.5) 06/15/17 15:36 - Constitutional Appears: Non-toxic, No Acute Distress - Head Exam Head Exam: ATRAUMATIC, NORMOCEPHALIC - Eye Exam Eye Exam: EOMI - ENT Exam ENT Exam: Mucous Membranes Moist - Neck Exam Neck Exam: Full ROM - Respiratory Exam Respiratory Exam: NORMAL BREATHING PATTERN. absent: Accessory Muscle Use, Respiratory Distress - GI/Abdominal Exam GI & Abdominal Exam: Distended, Soft. absent: Firm, Guarding, Rigid, Tenderness , Rebound - Neurological Exam Neurological Exam: Alert, Awake, Oriented x3 Assessment and Plan - Assessment and Plan (Free Text) Assessment: 62F w. SBO vs ileus -will start CLD -glycerin suppository -serial abd exams, monitor for bowel fxn -will make npo if sxs worsen -d/w attending Zemaitis PGY3
--- NOTE | 2017-06-19 08:27 | PN ---
DATE: 06/19/2017 SUBJECTIVE: The patient has no complaints of any chest pain. No shortness of breath. She states her pain is better controlled. PHYSICAL EXAMINATION: VITAL SIGNS: Temperature is 98.5, pulse of 91, blood pressure is 153/89, respirations 19. GENERAL: The patient is lying in bed, flat, comfortable. HEENT: No oral lesion. Anicteric sclerae. Moist mucosa. NECK: No JVD, adenopathy, or thyromegaly. CARDIOVASCULAR: S1 and S2, regular. No murmurs, rubs, or gallops. LUNGS: Clear to auscultation bilaterally. No wheeze, rales, or rhonchi. ABDOMEN: Bowel sounds are positive. Soft, nontender and nondistended. EXTREMITIES: No cyanosis, clubbing or edema. ASSESSMENT: 1. Small bowel obstruction/ileus. 2. Ovarian neoplasm. 3. Rqkwa-[id number] pain, better controlled. 4. Hypertension. 5. Diabetes type 2. 6. Cholelithiasis. 7. Leukocytosis. 8. PENICILLIN ALLERGY. The patient had blood cultures and urine cultures that were negative. She is having better control of her pain with the increased dose of the fentanyl patch. She is also on Dilaudid IV as well as p.o. for breakthrough pain. The patient is on IV fluids, receiving vancomycin and aztreonam for antibiotics. She currently is n.p.o. We will continue to follow closely. The patient was seen by Physical Therapy. She was advised to go to subacute rehab. Mauricio Aponte MD
[2017-06-19] MEDS: Enoxaparin 40 mg Syringe SC SCH (10:42)
--- NOTE | 2017-06-19 13:19 | CP.PCM.PN ---
Subjective - Date & Time of Evaluation Date of Evaluation: 06/19/17 Time of Evaluation: 11:30 - Subjective Subjective: Abdominal pain is improving, but still no appetite, had soft BM today, no fevers. Objective - Vital Signs/Intake and Output Vital Signs (last 24 hours): Temp Pulse Resp BP Pulse Ox 98.5 F 91 H 19 153/89 H 96 06/18/17 16:00 06/18/17 16:00 06/18/17 16:00 06/18/17 16:00 06/18/17 16:00 Intake and Output: 06/19/17 06/19/17 06:59 18:59 Intake Total 100 Balance 100 - Medications Medications: Current Medications Enoxaparin Sodium (Lovenox) 40 mg SC DAILY [facility] PRN Reason: Protocol Last Admin: 06/19/17 10:42 Dose: 40 mg Fentanyl (Duragesic) 1 patch TD Q72H [facility] Last Admin: 06/17/17 11:00 Dose: 1 patch Hydromorphone HCl (Dilaudid) 2 mg PO Q4 PRN PRN Reason: Pain, moderate (4-7) Last Admin: 06/16/17 21:40 Dose: 2 mg Hydromorphone HCl (Dilaudid) 2 mg IVP Q4H PRN PRN Reason: Pain, severe (8-10) Aztreonam (Azactam 1 Gm) 100 mls @ 100 mls/hr IVPB Q8 [facility] PRN Reason: Protocol Stop: 06/25/17 06:01 Last Admin: 06/19/17 05:03 Dose: 100 mls/hr Metronidazole (Flagyl) 500 mg in 100 mls @ 100 mls/hr IVPB Q8 [facility] PRN Reason: Protocol Stop: 06/25/17 06:01 Last Admin: 06/19/17 05:03 Dose: 100 mls/hr Vancomycin HCl (Vancomycin 1gm) 1 gm in 250 mls @ 167 mls/hr IVPB Q12H [facility] PRN Reason: Protocol Stop: 06/24/17 23:16 Last Admin: 06/19/17 10:45 Dose: 167 mls/hr Sodium Chloride (Sodium Chloride 0.9%) 1,000 mls @ 80 mls/hr IV .[id number] [facility] Last Admin: 06/18/17 10:19 Dose: 80 mls/hr Insulin Human Regular (Humulin R Low) 0 units SC ACHS [facility] PRN Reason: Protocol Last Admin: 06/19/17 08:39 Dose: 1 units Ondansetron HCl (Zofran Inj) 8 mg IVP Q6H [facility] Last Admin: 06/19/17 10:43 Dose: 8 mg - Labs Labs: 06/18/17 06:45 06/17/17 06:45 PT 13.2 SECONDS (9.4-12.5) H 06/15/17 15:36 INR 1.15 (0.93-1.08) H 06/15/17 15:36 APTT 25.8 Seconds (25.1-36.5) 06/15/17 15:36 - Constitutional Appears: Chronically Ill - Head Exam Head Exam: NORMAL INSPECTION - Neck Exam Neck Exam: absent: Meningismus - Respiratory Exam Respiratory Exam: Decreased Breath Sounds - Cardiovascular Exam Cardiovascular Exam: +S1, +S2 - GI/Abdominal Exam GI & Abdominal Exam: Soft. absent: Tenderness Assessment and Plan - Assessment and Plan (Free Text) Plan: Assessment Systemic inflammatory response syndrome, consider due to ovarian cancer and small bowel obstruction or ileus R/O sepsis from intra-abdominal infection DM HTN obesity with BMI 37 Plan continue Vancomycin, Azactam and Flagyl day 4; cultures have been negative; reviewed CT A/P showing ovarian mass and possible SBO or ileus will continue to monitor clinically and follow up further plans of GI and plans for advancement of her diet overall prognosis is poor
--- NOTE | 2017-06-20 00:41 | CP.PCM.PN ---
Subjective - Date & Time of Evaluation Date of Evaluation: 06/17/17 Time of Evaluation: 18:00 - Subjective Subjective: Complaining of abdominal pain. It has slightly improved since admission. XRay abdomen showed dilated bowel loops consistent with SBO. Nausea, vomiting. She is NPO. No chest pain. No bleeding. Objective - Vital Signs/Intake and Output Vital Signs (last 24 hours): Temp Pulse Resp BP Pulse Ox 98.3 F 95 H 19 143/84 98 06/19/17 16:50 06/19/17 16:50 06/19/17 16:50 06/19/17 16:50 06/19/17 16:50 Intake and Output: 06/19/17 06/20/17 18:59 06:59 Intake Total 0 Balance 0 - Medications Medications: Current Medications Enoxaparin Sodium (Lovenox) 40 mg SC DAILY [facility] PRN Reason: Protocol Last Admin: 06/19/17 10:42 Dose: 40 mg Fentanyl (Duragesic) 1 patch TD Q72H [facility] Last Admin: 06/17/17 11:00 Dose: 1 patch Hydromorphone HCl (Dilaudid) 2 mg PO Q4 PRN PRN Reason: Pain, moderate (4-7) Last Admin: 06/16/17 21:40 Dose: 2 mg Hydromorphone HCl (Dilaudid) 2 mg IVP Q4H PRN PRN Reason: Pain, severe (8-10) Aztreonam (Azactam 1 Gm) 100 mls @ 100 mls/hr IVPB Q8 [facility] PRN Reason: Protocol Stop: 06/25/17 06:01 Last Admin: 06/19/17 21:05 Dose: 100 mls/hr Metronidazole (Flagyl) 500 mg in 100 mls @ 100 mls/hr IVPB Q8 [facility] PRN Reason: Protocol Stop: 06/25/17 06:01 Last Admin: 06/19/17 21:06 Dose: 100 mls/hr Vancomycin HCl (Vancomycin 1gm) 1 gm in 250 mls @ 167 mls/hr IVPB Q12H [facility] PRN Reason: Protocol Stop: 06/24/17 23:16 Last Admin: 06/19/17 23:14 Dose: 167 mls/hr Sodium Chloride (Sodium Chloride 0.9%) 1,000 mls @ 80 mls/hr IV .[id number] [facility] Last Admin: 06/18/17 10:19 Dose: 80 mls/hr Insulin Human Regular (Humulin R Low) 0 units SC ACHS [facility] PRN Reason: Protocol Last Admin: 06/19/17 23:16 Dose: Not Given Ondansetron HCl (Zofran Inj) 8 mg IVP Q6H [facility] Last Admin: 06/19/17 20:15 Dose: Not Given - Labs Labs: 06/18/17 06:45 06/17/17 06:45 PT 13.2 SECONDS (9.4-12.5) H 06/15/17 15:36 INR 1.15 (0.93-1.08) H 06/15/17 15:36 APTT 25.8 Seconds (25.1-36.5) 06/15/17 15:36 - Constitutional Appears: Chronically Ill - Head Exam Head Exam: ATRAUMATIC, NORMAL INSPECTION, NORMOCEPHALIC - Eye Exam Pupil Exam: NORMAL ACCOMODATION - Neck Exam Neck Exam: Normal Inspection - Respiratory Exam Respiratory Exam: NORMAL BREATHING PATTERN - GI/Abdominal Exam GI & Abdominal Exam: Soft, Normal Bowel Sounds - Extremities Exam Extremities Exam: Normal Inspection - Back Exam Back Exam: NORMAL INSPECTION - Neurological Exam Neurological Exam: Alert, Oriented x3 - Psychiatric Exam Psychiatric exam: Normal Affect - Skin Skin Exam: Normal Color, Warm Assessment and Plan - Assessment and Plan (Free Text) Assessment: 1. Malignant mass in abdomen : likely ovarian. Gynec Onc eval upon discharge at [facility]. . CT PET , if no metastatic disease she will be a candidate for debulking surgery. 2. Nausea/vomiting : IV zofran 8 mg IV Q 8hr scheduled. She is NPO. SBO , likley due to mass, or illeus 3. Pain : fentanyl patch increased to 50. On IV dilaudid prn. 4. Renal : stable. 5. Mild ascites. Thank you Dr. Aponte for allowing us to participate in her care.
[2017-06-20] MEDS: Aztreonam 1 Gm in NS 100mL 100 ML IVPB SCH ×3 (05:20→21:24)
[2017-06-20] MEDS: metroNIDAZOLE IV 500 mg/100 ml 500 MG/100 ML BAG IVPB SCH ×3 (05:21→21:25)
--- NOTE | 2017-06-20 08:31 | PN ---
DATE: 06/20/2017 SUBJECTIVE: The patient has no complaints of any chest pain. No shortness of breath. She states her abdominal pain is better. Her pain is better controlled. PHYSICAL EXAMINATION: VITAL SIGNS: Temperature is 98.3, pulse of 95, blood pressure is 143/84, respirations 19. GENERAL: The patient is lying in bed, flat, comfortable. HEENT: No oral lesion. Anicteric sclerae. Moist mucosa. NECK: No JVD, adenopathy, or thyromegaly. CARDIOVASCULAR: S1 and S2, regular. No murmurs, rubs, or gallops. LUNGS: Clear to auscultation bilaterally. No wheeze, rales, or rhonchi. ABDOMEN: Bowel sounds are positive, soft, nontender and nondistended. EXTREMITIES: No cyanosis, clubbing or edema. LABORATORY DATA: White count of 15.7, hemoglobin 9.9. Creatinine is 0.7. ASSESSMENT: 1. Small bowel obstruction/ileus, improved. 2. Ovarian neoplasm. 3. Acute on chronic pain, improving. 4. Hypertension. 5. Diabetes type 2. 6. Cholelithiasis. 7. Leukocytosis. 8. Penicillin allergy. PLAN: The patient has blood cultures, urine cultures that have been negative. She is on aztreonam for her antibiotic, this will be continue. She is going to continue with Dilaudid for pain. She is on a fentanyl patch that has helped her pain control. The patient is receiving Flagyl. She is also receiving vancomycin for her antibiotics. She is on Lovenox for DVT prophylaxis. She is on insulin for coverage. The patient is on a liquid diet. Her sugars have been elevated. We will see if the patient qualifies for the Transitional Care Unit. Mauricio Aponte MD
[2017-06-20] MEDS: Insulin Reg-LOW-Coverage SC SCH ×4 (09:05→21:46)
[2017-06-20] MEDS: Enoxaparin 40 mg Syringe SC SCH (09:06)
--- NOTE | 2017-06-20 10:31 | RAD ---
HISTORY: ileus / SBO COMPARISON: 06/17/2017 FINDINGS: BOWEL: Single frontal view of the abdomen reveals persistent small bowel dilatation. Small bowel loops are mildly increased in overall size from prior study. Findings suggest persistent bowel obstruction or increased ileus. BONES: No change. OTHER FINDINGS: Free air cannot be excluded on this single supine radiograph. IMPRESSION: Mild increase in small bowel dilatation.
[2017-06-20] MEDS: Vancomycin 1gm in NS 250ml 1 GM/250 ML BAG IVPB SCH (10:44)
--- NOTE | 2017-06-20 13:37 | CP.PCM.PN ---
Subjective - Date & Time of Evaluation Date of Evaluation: 06/20/17 Time of Evaluation: 12:55 - Subjective Subjective: Patient's diet is now advanced to liquid, no fevers, still some nausea but no vomiting, no abdominal pain. Objective - Vital Signs/Intake and Output Vital Signs (last 24 hours): Temp Pulse Resp BP Pulse Ox 98.7 F 79 19 152/78 H 95 06/20/17 06:00 06/20/17 06:00 06/20/17 06:00 06/20/17 06:00 06/20/17 06:00 Intake and Output: 06/20/17 06/20/17 06:59 18:59 Intake Total 1200 Balance 1200 - Medications Medications: Current Medications Enoxaparin Sodium (Lovenox) 40 mg SC DAILY SAM PRN Reason: Protocol Last Admin: 06/20/17 09:06 Dose: 40 mg Fentanyl (Duragesic) 1 patch TD Q72H [facility] Last Admin: 06/20/17 09:04 Dose: 1 patch Hydromorphone HCl (Dilaudid) 2 mg PO Q4 PRN PRN Reason: Pain, moderate (4-7) Last Admin: 06/16/17 21:40 Dose: 2 mg Hydromorphone HCl (Dilaudid) 2 mg IVP Q4H PRN PRN Reason: Pain, severe (8-10) Aztreonam (Azactam 1 Gm) 100 mls @ 100 mls/hr IVPB Q8 SAM PRN Reason: Protocol Stop: 06/25/17 06:01 Last Admin: 06/20/17 05:20 Dose: 100 mls/hr Metronidazole (Flagyl) 500 mg in 100 mls @ 100 mls/hr IVPB Q8 SAM PRN Reason: Protocol Stop: 06/25/17 06:01 Last Admin: 06/20/17 05:21 Dose: 100 mls/hr Vancomycin HCl (Vancomycin 1gm) 1 gm in 250 mls @ 167 mls/hr IVPB Q12H SAM PRN Reason: Protocol Stop: 06/24/17 23:16 Last Admin: 06/19/17 23:14 Dose: 167 mls/hr Insulin Human Regular (Humulin R Low) 0 units SC ACHS SAM PRN Reason: Protocol Last Admin: 06/20/17 09:05 Dose: Not Given Ondansetron HCl (Zofran Inj) 8 mg IVP Q6H SAM Last Admin: 06/20/17 02:00 Dose: Not Given - Labs Labs: 06/18/17 06:45 06/17/17 06:45 PT 13.2 SECONDS (9.4-12.5) H 06/15/17 15:36 INR 1.15 (0.93-1.08) H 06/15/17 15:36 APTT 25.8 Seconds (25.1-36.5) 06/15/17 15:36 - Constitutional Appears: Chronically Ill - Head Exam Head Exam: NORMAL INSPECTION - ENT Exam ENT Exam: Mucous Membranes Moist - Neck Exam Neck Exam: absent: Meningismus - Respiratory Exam Respiratory Exam: Decreased Breath Sounds - Cardiovascular Exam Cardiovascular Exam: +S1, +S2 - GI/Abdominal Exam GI & Abdominal Exam: Soft. absent: Tenderness Assessment and Plan - Assessment and Plan (Free Text) Plan: Assessment Systemic inflammatory response syndrome, consider due to ovarian cancer and small bowel obstruction or ileus R/O sepsis from intra-abdominal infection DM HTN obesity with BMI 37 Plan continue Vancomycin, Azactam and Flagyl day 5; cultures have been negative; reviewed CT A/P showing ovarian mass and possible SBO or ileus will continue to monitor clinically and follow up further advancement of her diet overall prognosis is poor
--- NOTE | 2017-06-20 14:37 | CP.PCM.PN ---
Subjective - Date & Time of Evaluation Date of Evaluation: 06/20/17 Time of Evaluation: 06:55 - Subjective Subjective: General Surgery: Dr Petersen Pt S&E. JUST[place]. Tolerating CLD. States no nausea or vomiting. Denies f/c. Had a BM after enema yesterday. Objective - Vital Signs/Intake and Output Vital Signs (last 24 hours): Temp Pulse Resp BP Pulse Ox 98.7 F 79 19 152/78 H 95 06/20/17 06:00 06/20/17 06:00 06/20/17 06:00 06/20/17 06:00 06/20/17 06:00 Intake and Output: 06/20/17 06/20/17 06:59 18:59 Intake Total 1200 800 Balance 1200 800 - Medications Medications: Current Medications Enoxaparin Sodium (Lovenox) 40 mg SC DAILY SAM PRN Reason: Protocol Last Admin: 06/20/17 09:06 Dose: 40 mg Fentanyl (Duragesic) 1 patch TD Q72H [facility] Last Admin: 06/20/17 09:04 Dose: 1 patch Hydromorphone HCl (Dilaudid) 2 mg PO Q4 PRN PRN Reason: Pain, moderate (4-7) Last Admin: 06/16/17 21:40 Dose: 2 mg Hydromorphone HCl (Dilaudid) 2 mg IVP Q4H PRN PRN Reason: Pain, severe (8-10) Aztreonam (Azactam 1 Gm) 100 mls @ 100 mls/hr IVPB Q8 SAM PRN Reason: Protocol Stop: 06/25/17 06:01 Last Admin: 06/20/17 14:03 Dose: 100 mls/hr Metronidazole (Flagyl) 500 mg in 100 mls @ 100 mls/hr IVPB Q8 SAM PRN Reason: Protocol Stop: 06/25/17 06:01 Last Admin: 06/20/17 14:03 Dose: 100 mls/hr Vancomycin HCl (Vancomycin 1gm) 1 gm in 250 mls @ 167 mls/hr IVPB Q12H SAM PRN Reason: Protocol Stop: 06/24/17 23:16 Last Admin: 06/20/17 10:44 Dose: 167 mls/hr Insulin Human Regular (Humulin R Low) 0 units SC ACHS SAM PRN Reason: Protocol Last Admin: 06/20/17 11:50 Dose: 2 units Ondansetron HCl (Zofran Inj) 8 mg IVP Q6H [facility] Last Admin: 06/20/17 10:45 Dose: Not Given - Labs Labs: 06/18/17 06:45 06/17/17 06:45 PT 13.2 SECONDS (9.4-12.5) H 06/15/17 15:36 INR 1.15 (0.93-1.08) H 06/15/17 15:36 APTT 25.8 Seconds (25.1-36.5) 06/15/17 15:36 - Constitutional Appears: Non-toxic, No Acute Distress - ENT Exam ENT Exam: Normal Exam - Respiratory Exam Respiratory Exam: absent: Accessory Muscle Use, Respiratory Distress - Cardiovascular Exam Cardiovascular Exam: REGULAR RHYTHM. absent: Tachycardia - GI/Abdominal Exam GI & Abdominal Exam: Soft. absent: Distended, Firm, Guarding, Tenderness - Neurological Exam Neurological Exam: Alert, Awake, Oriented x3 - Psychiatric Exam Psychiatric exam: Normal Affect, Normal Mood Assessment and Plan - Assessment and Plan (Free Text) Assessment: 62F with ovarian mass and chronic intermittent ileus Plan: ok to adv to FLD will cont to monitor no plans for surgical intervention lexie Nolan, PGY3
[2017-06-20 17:51] VITALS: PULSE 93; RESP 20
[2017-06-21] MEDS: metroNIDAZOLE IV 500 mg/100 ml 500 MG/100 ML BAG IVPB SCH (05:03)
[2017-06-21] MEDS: Aztreonam 1 Gm in NS 100mL 100 ML IVPB SCH (05:03)
[2017-06-21 08:13] VITALS: BP 150/76; TEMP 98.5; O2SAT 94
[2017-06-21] MEDS: Insulin Reg-LOW-Coverage SC SCH ×2 (08:13→12:27)
--- NOTE | 2017-06-21 08:55 | CP.PCM.PN ---
Subjective - Date & Time of Evaluation Date of Evaluation: 06/21/17 Time of Evaluation: 08:51 - Subjective Subjective: Patient seen and examined at bedside. Per nursing no acute events occurred overnight. Patient is tolerating diet with no complaints. Patient denies any fevers, chills, nausea, changes in vision, headache, abdominal pain, or any other complaints. Objective - Vital Signs/Intake and Output Vital Signs (last 24 hours): Temp Pulse Resp BP Pulse Ox 98.5 F 93 H 20 150/76 94 L 06/21/17 06:00 06/21/17 06:00 06/21/17 06:00 06/21/17 06:00 06/21/17 06:00 Intake and Output: 06/21/17 06/21/17 06:59 18:59 Intake Total 1190 Balance 1190 - Medications Medications: Current Medications Enoxaparin Sodium (Lovenox) 40 mg SC DAILY SAM PRN Reason: Protocol Last Admin: 06/20/17 09:06 Dose: 40 mg Fentanyl (Duragesic) 1 patch TD Q72H [facility] Last Admin: 06/20/17 09:04 Dose: 1 patch Hydromorphone HCl (Dilaudid) 2 mg PO Q4 PRN PRN Reason: Pain, moderate (4-7) Last Admin: 06/16/17 21:40 Dose: 2 mg Hydromorphone HCl (Dilaudid) 2 mg IVP Q4H PRN PRN Reason: Pain, severe (8-10) Last Admin: 06/21/17 08:04 Dose: 2 mg Aztreonam (Azactam 1 Gm) 100 mls @ 100 mls/hr IVPB Q8 SAM PRN Reason: Protocol Stop: 06/25/17 06:01 Last Admin: 06/21/17 05:03 Dose: 100 mls/hr Metronidazole (Flagyl) 500 mg in 100 mls @ 100 mls/hr IVPB Q8 SAM PRN Reason: Protocol Stop: 06/25/17 06:01 Last Admin: 06/21/17 05:03 Dose: 100 mls/hr Vancomycin HCl (Vancomycin 1gm) 1 gm in 250 mls @ 167 mls/hr IVPB Q12H SAM PRN Reason: Protocol Stop: 06/24/17 23:16 Last Admin: 06/21/17 00:00 Dose: 167 mls/hr Insulin Human Regular (Humulin R Low) 0 units SC ACHS SAM PRN Reason: Protocol Last Admin: 06/21/17 08:13 Dose: Not Given Ondansetron HCl (Zofran Inj) 8 mg IVP Q6H [facility] Last Admin: 06/21/17 08:15 Dose: Not Given - Labs Labs: 06/18/17 06:45 06/17/17 06:45 PT 13.2 SECONDS (9.4-12.5) H 06/15/17 15:36 INR 1.15 (0.93-1.08) H 06/15/17 15:36 APTT 25.8 Seconds (25.1-36.5) 06/15/17 15:36 - Head Exam Head Exam: ATRAUMATIC, NORMAL INSPECTION, NORMOCEPHALIC - Eye Exam Eye Exam: EOMI - ENT Exam ENT Exam: Mucous Membranes Moist - Respiratory Exam Respiratory Exam: NORMAL BREATHING PATTERN - Cardiovascular Exam Cardiovascular Exam: REGULAR RHYTHM - GI/Abdominal Exam GI & Abdominal Exam: Normal Bowel Sounds - Extremities Exam Extremities Exam: Full ROM - Back Exam Back Exam: NORMAL INSPECTION - Neurological Exam Neurological Exam: Alert, Awake - Psychiatric Exam Psychiatric exam: Normal Affect, Normal Mood - Skin Skin Exam: Dry Assessment and Plan - Assessment and Plan (Free Text) Assessment: 62F with ovarian mass and chronic intermittent ileus Plan: -will continue to advance diet as tolerated. -will continue to monitor no plans for surgical intervention Will discuss with Dr Petersen
[2017-06-21 10:18] LABS: BASO # 0.01 K/mm3 (0.0-2.0); BASO % 0.1 % (0.0-3.0); EOS # 0.3 (0.0-0.7); EOS % 3.2 % (1.5-5.0); GRAN # 6.73 (1.4-6.5); GRAN % 74.4 % (50.0-68.0); HEMOGLOBIN 8.7 g/dL (12.0-16.0); LYMPH % 11.3 % (22.0-35.0); MEAN CELL VOLUME 90.7 fl (80.0-105.0); MEAN CORPUSCULAR HEMOGLOBIN 28.9 pg (25.0-35.0); MEAN CORPUSCULAR HGB CONC 31.9 g/dl (31.0-37.0); MEAN PLATELET VOLUME 8.3 fl (7.0-11.0); RBC 3.01 10^6/uL (3.5-6.1); RED CELL DISTRIBUTION WIDTH 13.9 % (11.5-14.5)
[2017-06-21] MEDS: Enoxaparin 40 mg Syringe SC SCH (10:31)
[2017-06-21 10:34] LABS: ALBUMIN 2.8 g/dL (3.0-4.8); ALT/SGPT 25 U/L (7-56); AST/SGOT 20 U/L (14-36); BLOOD UREA NITROGEN 12 mg/dL (7-21); GFR AFRICAN-AMERICAN > 60; GFR NON-AFRICAN AMERICAN > 60
[2017-06-21] MEDS ORDERED: Potassium Chloride 20 mEq ER Tab PO ONE (12:11)
[2017-06-21] MEDS: Vancomycin 1gm in NS 250ml 1 GM/250 ML BAG IVPB SCH ×2 (12:28)
--- NOTE | 2017-06-21 13:06 | RAD ---
HISTORY: reeval ileus COMPARISON: 06/20/2017 FINDINGS: BOWEL: Moderately dilated small bowel loops are seen in the mid abdomen consistent with ileus or partial obstruction. The findings have shown slight improvement BONES: Normal. OTHER FINDINGS: None. IMPRESSION: Moderately dilated small bowel loops are seen in the mid abdomen consistent with ileus or partial obstruction. The findings have shown slight improvement
--- NOTE | 2017-06-21 18:03 | CP.PCM.PN ---
Subjective - Date & Time of Evaluation Date of Evaluation: 06/21/17 Time of Evaluation: 11:30 - Subjective Subjective: No abdominal pain, feeling better, eating better, no diarrhea, no fevers. Objective - Vital Signs/Intake and Output Vital Signs (last 24 hours): Temp Pulse Resp BP Pulse Ox 98.5 F 93 H 20 150/76 94 L 06/21/17 06:00 06/21/17 06:00 06/21/17 06:00 06/21/17 06:00 06/21/17 06:00 Intake and Output: 06/21/17 06/21/17 06:59 18:59 Intake Total 1190 Balance 1190 - Medications Medications: Current Medications Enoxaparin Sodium (Lovenox) 40 mg SC DAILY SAM PRN Reason: Protocol Last Admin: 06/20/17 09:06 Dose: 40 mg Fentanyl (Duragesic) 1 patch TD Q72H [facility] Last Admin: 06/20/17 09:04 Dose: 1 patch Hydromorphone HCl (Dilaudid) 2 mg PO Q4 PRN PRN Reason: Pain, moderate (4-7) Last Admin: 06/16/17 21:40 Dose: 2 mg Hydromorphone HCl (Dilaudid) 2 mg IVP Q4H PRN PRN Reason: Pain, severe (8-10) Last Admin: 06/21/17 08:04 Dose: 2 mg Aztreonam (Azactam 1 Gm) 100 mls @ 100 mls/hr IVPB Q8 SAM PRN Reason: Protocol Stop: 06/25/17 06:01 Last Admin: 06/21/17 05:03 Dose: 100 mls/hr Metronidazole (Flagyl) 500 mg in 100 mls @ 100 mls/hr IVPB Q8 SAM PRN Reason: Protocol Stop: 06/25/17 06:01 Last Admin: 06/21/17 05:03 Dose: 100 mls/hr Vancomycin HCl (Vancomycin 1gm) 1 gm in 250 mls @ 167 mls/hr IVPB Q12H SAM PRN Reason: Protocol Stop: 06/24/17 23:16 Last Admin: 06/21/17 00:00 Dose: 167 mls/hr Insulin Human Regular (Humulin R Low) 0 units SC ACHS SAM PRN Reason: Protocol Last Admin: 06/21/17 08:13 Dose: Not Given Ondansetron HCl (Zofran Inj) 8 mg IVP Q6H SAM Last Admin: 06/21/17 08:15 Dose: Not Given - Labs Labs: 06/18/17 06:45 06/17/17 06:45 PT 13.2 SECONDS (9.4-12.5) H 06/15/17 15:36 INR 1.15 (0.93-1.08) H 06/15/17 15:36 APTT 25.8 Seconds (25.1-36.5) 06/15/17 15:36 - Constitutional Appears: Chronically Ill - Head Exam Head Exam: NORMAL INSPECTION - ENT Exam ENT Exam: Mucous Membranes Moist - Neck Exam Neck Exam: absent: Meningismus - Respiratory Exam Respiratory Exam: Decreased Breath Sounds - Cardiovascular Exam Cardiovascular Exam: +S1, +S2 - GI/Abdominal Exam GI & Abdominal Exam: Soft. absent: Tenderness Assessment and Plan - Assessment and Plan (Free Text) Plan: Assessment Systemic inflammatory response syndrome, consider due to ovarian cancer and small bowel obstruction or ileus R/O sepsis from intra-abdominal infection DM HTN obesity with BMI 37 Plan on Vancomycin, Azactam and Flagyl day 6; cultures have been negative; reviewed CT A/P showing ovarian mass and possible SBO or ileus will continue antibiotics until she can she can eat a regular diet overall prognosis is poor
--- NOTE | 2017-06-22 04:26 | DS ---
HISTORY OF PRESENT ILLNESS: This is a 62-year-old female who came into the hospital complaining of abdominal pain. The patient was found to have uncontrolled pain secondary to her ovarian neoplasm. During the hospital stay, she developed an ileus. This has improved as well. She has her pain medications adjusted. Currently her fentanyl patch of 50 mcg is working and Dilaudid that she gets for breakthrough pain helps. She has no complaints of any headaches. She is not able to ambulate. PHYSICAL EXAMINATION: VITAL SIGNS: Temperature is 98.5, pulse of 93, blood pressure 150/76, respirations 20. GENERAL: The patient is lying in bed, flat, comfortable. HEENT: No oral lesion. Anicteric sclerae. Moist mucosa. NECK: No JVD, adenopathy, or thyromegaly. CARDIOVASCULAR: S1 and S2, regular. No murmurs, rubs, or gallops. LUNGS: Clear to auscultation bilaterally. No wheeze, rales, or rhonchi. ABDOMEN: Bowel sounds are positive, soft, nontender and nondistended. EXTREMITIES: No cyanosis, clubbing or edema. LABORATORY DATA: White count of 15.7, hemoglobin 9.9. creatinine 0.7. DIAGNOSTIC DATA: Abdominal x-ray done shows the small bowel dilatation . The patient has been tolerating her diet. ASSESSMENT: 1. Abdominal pain secondary to ovarian neoplasm. 2. Small bowel obstruction/ileus. 3. Ovarian neoplasm. 4. Acute on chronic pain. 5. Hypertension. 6. Diabetes type 2. 7. Cholelithiasis. 8. PENICILLIN ALLERGY. PLAN: The patient will have the diet advanced. If she is not able to tolerate the diet then she will need to stay in the hospital. There are no plans for surgical intervention. Patient is on Dilaudid for pain. We will renew her pain medications. She is on Lovenox for DVT prophylaxis. She is on Zofran. She is on a heart-healthy diet. Mauricio Aponte MD
== END 2017-06-21 16:37 | disposition home or self-care (01) | DRG 755 ==
LOC: ED 14:53 → ERH 18:36 → OBSVTOIN 20:31 → 3RSO 21:30
PROVIDERS: ADMIT Internal Medicine Nephrology; ATTEND Internal Medicine Nephrology
DX: C56.2 Malignant neoplasm of left ovary (principal); K56.7 Ileus, unspecified; K56.609 Unspecified intestinal obstruction, unspecified as to partial versus complete obstruction; R18.8 Other ascites; R65.10 Systemic inflammatory response syndrome (SIRS) of non-infectious origin without acute organ dysfunction; G89.3 Neoplasm related pain (acute) (chronic); I10 Essential (primary) hypertension; E11.9 Type 2 diabetes mellitus without complications; H54.62 Unqualified visual loss, left eye, normal vision right eye; K80.20 Calculus of gallbladder without cholecystitis without obstruction; K59.00 Constipation, unspecified; E66.9 Obesity, unspecified; Z68.37 Body mass index [BMI] 37.0-37.9, adult; Z79.84 Long term (current) use of oral hypoglycemic drugs; Z88.0 Allergy status to penicillin

== ENCOUNTER 2017-08-12 11:32 | Observation (INO) | payer MEDICARE, OTHER ==
[2017-08-12 11:33] VITALS: BMI 37.0
--- NOTE | 2017-08-12 11:58 | ED PDOC ---
Arrival/HPI - General Time Seen by Provider: 08/12/17 11:35 Historian: Patient, EMS - History of Present Illness Narrative History of Present Illness (Text): 08/12/17 11:49 62 y/o female, pmh including htn/ovarian cancer/dm/cholelithiasis/anemia with blood transfusion/left eye blindness, allergic to percocet/penicillin/aspirin, biba for repeat lab work for hgb check. Pt. stated that she has ovarian cancer , had hysterectomy 3 weeks ago and resulted anemia which she had blood transfusion, told that the hgb is going down again and here for the repeat hgb. Pt. is under the chemotherapy with picc line, no fever or chills, no chest pain or shortness of breath, no coughing, no numbness or tingling, no black color stool, no bleeding from the stool, no abdominal pain, admits fatigue but no coughing or URI, no rash, no palpitation, no numbness or tingling, no palpitation, no other medical or psychological complaints. Past Medical History - Provider Review Nursing Documentation Reviewed: Yes - Cardiac Hx Cardiac Disorders: Yes Hx Hypertension: Yes - Pulmonary Hx Respiratory Disorders: No - Neurological Hx Neurological Disorder: No - HEENT Hx HEENT Disorder: Yes Hx Blind: Yes (left eye) Other/Comment: Meniere's Disease - Renal Hx Renal Disorder: No - Endocrine/Metabolic Hx Diabetes Mellitus Type 2: Yes - Hematological/Oncological Hx Blood Disorders: No - Integumentary Hx Dermatological Disorder: No - Musculoskeletal/Rheumatological Hx Musculoskeletal Disorders: No - Gastrointestinal Hx Gastrointestinal Disorders: Yes Other/Comment: Peritonitis - Genitourinary/Gynecological Hx Genitourinary Disorders: No - Psychiatric Hx Psychophysiologic Disorder: No Hx Substance Use: No - Surgical History Hx Orthopedic Surgery: Yes (right rotator cuff) Family/Social History - Physician Review Nursing Documentation Reviewed: Yes Family/Social History: Unknown Family HX Smoking Status: Never Smoked Hx Alcohol Use: No Hx Substance Use: No Allergies/Home Meds Allergies/Adverse Reactions: Allergies Penicillins Allergy (Verified 08/12/17 11:43) URTICARIA acetaminophen [From Percocet] Adverse Reaction (Verified 08/12/17 11:43) DIZZINESS aspirin Adverse Reaction (Verified 08/12/17 11:43) PAIN oxycodone Adverse Reaction (Verified 08/12/17 11:43) DIZZINESS Home Medications: Home Meds Medication Instructions Recorded Confirmed Ramipril [Altace] 10 mg PO DAILY 06/15/17 08/12/17 Acetaminophen [Tylenol 160mg/5ml 640 mg PO Q6 PRN 08/12/17 08/12/17 elixir (120ml)] Albuterol HFA [Ventolin HFA 90 2 puff NEB Q6 PRN 08/12/17 08/12/17 mcg/actuation (8 g)] Enoxaparin [Lovenox] 40 mg SC DAILY 08/12/17 08/12/17 Famotidine [Pepcid] 20 mg PO BID 08/12/17 08/12/17 HYDROmorphone [Dilaudid 2 mg Tab] 2 mg PO Q4 PRN 08/12/17 08/12/17 Insulin Aspart, Recombinant See Protocol SC ACHS 08/12/17 08/12/17 [Novolog] MetFORMIN [glucoPHAGE] 500 mg PO BID 08/12/17 08/12/17 Ondansetron ODT [Zofran ODT] 4 mg PO Q4 PRN 08/12/17 08/12/17 Simethicone [Mylicon Chew Tab] 80 mg PO QID 08/12/17 08/12/17 Review of Systems - Review of Systems Constitutional: Fatigue. absent: Fevers Eyes: absent: Vision Changes ENT: absent: Hearing Changes Respiratory: absent: SOB, Cough Cardiovascular: absent: Chest Pain Gastrointestinal: absent: Abdominal Pain, Nausea, Vomiting Skin: absent: Rash, Pruritis Neurological: absent: Headache, Dizziness Psychiatric: absent: Anxiety, Depression, Suicidal Ideation Physical Exam Vital Signs Reviewed: Yes Vital Signs Temp Pulse Resp BP Pulse Ox 08/12/17 13:38 112 H 16 132/71 99 08/12/17 11:47 97.1 F L 119 H 16 144/79 98 Temperature: Afebrile Blood Pressure: Normal Pulse: Tachycardic Respiratory Rate: Normal Appearance: Positive for: Non-Toxic, Comfortable, Ill-Appearing Pain Distress: None Mental Status: Positive for: Alert and Oriented X 3 - Systems Exam Head: Present: Atraumatic, Normocephalic Pupils: Present: Other (left eye blindness noted) Extroacular Muscles: Present: EOMI Conjunctiva: Present: Normal Ears: Present: NORMAL TM, Normal Canal. No: Erythema Mouth: Present: Moist Mucous Membranes Neck: Present: Normal Range of Motion Respiratory/Chest: Present: Clear to Auscultation, Good Air Exchange. No: Respiratory Distress, Accessory Muscle Use Cardiovascular: Present: Regular Rate and Rhythm, Normal S1, S2. No: Murmurs Abdomen: No: Tenderness, Distention, Peritoneal Signs Rectal: Present: Normal Rectal Tone, Other (Female Road Advisor: ER staff Winnie zaidi)). No: Occult Blood, Rectal Tenderness, Gross Blood, Melena, Hemorrhoids, Fissures, Nodule/Mass/Lesions Back: Present: Normal Inspection Upper Extremity: Present: Normal Inspection. No: Cyanosis, Edema Lower Extremity: Present: Normal Inspection. No: Edema Neurological: Present: GCS=15, CN II-XII Intact, Speech Normal, Motor Func Grossly Intact, Gait Normal, Memory Normal Skin: Present: Warm, Dry, Normal Color. No: Rashes Psychiatric: Present: Alert, Oriented x 3, Normal Insight, Normal Concentration Medical Decision Making ED Course and Treatment: 08/12/17 11:59 -labs/type and screen/ua -ekg (tachycardia, admission) -cxr -air sampling and monitoring -IVF -observe and reassess 08/12/17 13:30 -EKG: Sinus Tachycardia @ 114 BPM, no ST elevation or depression, no T wave inversion -Chest xray: no active disease -Labs are non-significant except hgb 7.5 from 8.7 (2 units PRBC/transferrin/TIBC /Iron/benadryl ordered for transfusion with consent obtained), Mg 1.6 (magsu 1gm ordered) -Guaiac is negative -UA ordered and pending -Pt. will need admission for blood transfusion,paging the pmd Dr. Huertas and Dr. Serna -I spoke to Dr. Huertas about the case/labs/radiology/treatment, agreed that the patient needs admission and blood transfusion, request Dr. Serna on the case as well for routine consult. -I spoke to Dr. Serna about the case/labs/radiology result/treatment, agreed on the transfusion and will be on the consult about this case. -I discussed with DR. Lacey about the case, agreed on the treatment and admission, he will put in the admission order. - Critical Care Critical Care Minutes: 30 minutes Narrative Critical Care (Text): 08/12/17 13:16 hgb 7.5/tachycardia/ill appearing, needs blood transfusion. - Lab Interpretations Lab Results: 08/12/17 12:00 08/12/17 12:00 Lab Results 08/12/17 12:30: Blood Type AB POSITIVE, Antibody Screen Negative, Crossmatch See Detail, BBK History Checked Patient has bt 08/12/17 12:00: WBC 3.6 L D, RBC 2.68 L, Hgb 7.5 L, Hct 23.7 L, MCV 88.4, MCH 28.0, MCHC 31.6, RDW 15.5 H, Plt Count 390, MPV 8.9, Gran % 42.9 L, Lymph % ( Auto) 26.6, Lea % (Auto) 26.6 H, Eos % (Auto) 2.8, Baso % (Auto) 1.1, Gran # 1.55, Lymph # (Auto) 1.0 L, Lea # (Auto) 1.0 H, Eos # (Auto) 0.1, Baso # (Auto ) 0.04, Neutrophils % (Manual) 48 L, Band Neutrophils % 1, Lymphocytes % (Manual ) 26, Monocytes % (Manual) 19 H, Eosinophils % (Manual) 3, Basophils % (Manual) 3 H, Nucleated RBC % 1, Platelet Evaluation Normal, Hypochromasia 1+, Microcytosis (manual) Slight 08/12/17 12:00: Sodium 135, Potassium 4.1, Chloride 98, Carbon Dioxide 27, Anion Gap 14, BUN 17, Creatinine 0.6 L, Est GFR ( Amer) > 60, Est GFR ( Non-Af Amer) > 60, Random Glucose 128 H, Calcium 8.3 L, Magnesium 1.6 L, Total Bilirubin 0.4, AST 40 H D, ALT 27, Alkaline Phosphatase 90, Total Protein 6.4, Albumin 3.3, Globulin 3.1, Albumin/Globulin Ratio 1.1 - RAD Interpretation Radiology Orders: 08/12/17 12:00 CHEST PORTABLE [RAD] Stat HISTORY: medical clearance COMPARISON: 06/15/2017 FINDINGS: LUNGS: No active pulmonary disease. PLEURA: No significant pleural effusion identified, no pneumothorax apparent. CARDIOVASCULAR: New right PICC catheter terminates in the region of the superior vena cava. OSSEOUS STRUCTURES: No significant abnormalities. VISUALIZED UPPER ABDOMEN: Normal. OTHER FINDINGS: None. IMPRESSION: No infiltrate. New right PICC catheter as above. Network Specialist: Radiologist - EKG Interpretation EKG Interpretation (Text): 08/12/17 12:22 Sinus Tachycardia @ 114 BPM, no ST elevation or depression, no T wave inversion Interpreted by ED Physician: Yes Type: 12 lead EKG - Medication Orders Current Medication Orders: Magnesium Sulfate/Dextrose (Magnesium Sulfate 1 Gm/100 Ml D5w) 1 gm in 100 mls @ 100 mls/hr IVPB ONCE ONE Stop: 08/12/17 14:20 Last Admin: 08/12/17 13:31 Dose: 100 mls/hr eMAR Start Stop Document 08/12/17 13:31 KEVIN (Rec: 08/12/17 13:32 KEVIN [id number]) Intravenous Solution Start Date 08/12/17 Start Time 13:31 End Date 08/12/17 End time 14:31 Total Infusion Time 60 Discontinued Medications Diphenhydramine HCl (Benadryl) 25 mg PO ONCE ONE Stop: 08/12/17 12:56 Sodium Chloride (Sodium Chloride 0.9%) 1,000 mls @ 999 mls/hr IV .Q1H1M STA Stop: 08/12/17 13:00 Last Admin: 08/12/17 12:16 Dose: 999 mls/hr eMAR Start Stop Document 08/12/17 12:16 KEVIN (Rec: 08/12/17 12:17 KEVIN [id number]) Intravenous Solution Start Date 08/12/17 Start Time 12:17 End Date 08/12/17 End time 13:17 Total Infusion Time 60 - PA / [employer] / Resident Statement /DO has reviewed & agrees with the documentation as recorded. Disposition/Present on Arrival - Present on Arrival Any Indicators Present on Arrival: No History of DVT/PE: No History of Uncontrolled Diabetes: No Urinary Catheter: No History of Decub. Ulcer: No History Surgical Site Infection Following: None - Disposition Have Diagnosis and Disposition been Completed?: Yes Diagnosis: Anemia, Hypomagnesemia Disposition: HOSPITALIZED Disposition Time: 13:01 Patient Plan: Admission, Telemetry Patient Problems: Current Active Problems Problem Status Onset Anemia Acute Hypomagnesemia Acute Condition: STABLE
[2017-08-12] MEDS ORDERED: Sodium Chloride 0.9% 1,000 ML IV STA (12:00)
[2017-08-12 12:49] LABS: ALB/GLOB RATIO 1.1 (1.1-1.8); ALBUMIN 3.3 g/dL (3.0-4.8); ALT/SGPT 27 U/L (7-56); AST/SGOT 40 U/L (14-36); BLOOD UREA NITROGEN 17 mg/dL (7-21); CALCIUM 8.3 mg/dL (8.4-10.5); GFR AFRICAN-AMERICAN > 60; GFR NON-AFRICAN AMERICAN > 60
[2017-08-12 12:50] LABS: BASO # 0.04 K/mm3 (0.0-2.0); BASO % 1.1 % (0.0-3.0); EOS # 0.1 (0.0-0.7); EOS % 2.8 % (1.5-5.0); GRAN # 1.55 (1.4-6.5); GRAN % 42.9 % (50.0-68.0); HEMOGLOBIN 7.5 g/dL (12.0-16.0); LYMPH % 26.6 % (22.0-35.0); MEAN CELL VOLUME 88.4 fl (80.0-105.0); MEAN CORPUSCULAR HGB CONC 31.6 g/dl (31.0-37.0); MEAN PLATELET VOLUME 8.9 fl (7.0-11.0); MONO % 26.6 % (1.0-6.0); PLATELET COUNT 390 10^3/uL (120.0-450.0); RBC 2.68 10^6/uL (3.5-6.1); RED CELL DISTRIBUTION WIDTH 15.5 % (11.5-14.5); WHITE BLOOD COUNT 3.6 10^3/ul (4.5-11.0)
[2017-08-12 13:16] LABS: BAND 1 % (0-2); BASOPHIL 3 % (0.0-1.0); EOSINOPHIL 3 % (0.0-3.0); LYMPHOCYTE 26 % (22.0-35.0); MONOCYTE 19 % (1.0-6.0); NEUTROPHIL 48 % (50.0-70.0); NUCLEATED RED BLOOD CELL 1 %
[2017-08-12 13:17] LABS: HYPOCHROMIA 1+; MICROCYTOSIS SLIGHT; PLATELET ESTIMATE NORMAL (NORMAL)
[2017-08-12] MEDS ORDERED: Magnesium Sulfate 1 gm in D5W 1 GM/100 ML BAG IVPB ONE (13:21)
--- NOTE | 2017-08-12 13:38 | RAD ---
HISTORY: medical clearance COMPARISON: 06/15/2017 FINDINGS: LUNGS: No active pulmonary disease. PLEURA: No significant pleural effusion identified, no pneumothorax apparent. CARDIOVASCULAR: New right PICC catheter terminates in the region of the superior vena cava. OSSEOUS STRUCTURES: No significant abnormalities. VISUALIZED UPPER ABDOMEN: Normal. OTHER FINDINGS: None. IMPRESSION: No infiltrate. New right PICC catheter as above.
[2017-08-12 14:06] LABS: % IRON SATURATION 26 % (20-55); IRON 64 ug/dL (45-180); TOTAL IRON BINDING CAPACITY 242 ug/dL (265-497)
[2017-08-12] MEDS ORDERED: Simethicone 80 mg Chewtab PO PRN (15:46)
[2017-08-12] MEDS: Insulin Lispro (humaLOG) LOW Coverage SC SCH ×2 (16:19→22:30)
[2017-08-12] MEDS ORDERED: Magnesium Sulfate 2 gm/50 ml 2 GM/50 ML BAG IVPB ONE (17:46)
[2017-08-12] MEDS ORDERED: Darbepoetin Alfa 100 mcg/ml Inj SC ONE (17:47)
[2017-08-12 19:38] VITALS: O2SAT 97
--- NOTE | 2017-08-12 19:43 | CON ---
DATE: 08/12/2017 REQUESTING PHYSICIAN: Dr. Aponte. HISTORY OF PRESENT ILLNESS: Ms. Arshad is a 62-year-old female who was advised to go to the ER for blood transfusion. Hemoglobin was 7.5 in the office this week. She has metastatic ovarian cancer, status post debulking surgery at [facility]. She had complicated surgical course requiring Intensive Care Unit admission for 2 weeks. She developed ascites, respiratory distress, and bilateral pleural effusion that were drained. She has recovered remarkably well. She was started on weekly carboplatin/Taxol. Received second week of chemo this week carboplatin/Taxotere, tolerated chemo very well. She is feeling weak. Shortness of breath has improved. Ascites has improved. PAST MEDICAL HISTORY: Hypertension, blindness in left eye, Meniere disease, diabetes mellitus type 2, history of peritonitis, and history of small bowel obstruction. PAST SURGICAL HISTORY: Rotator cuff surgery on the right side. FAMILY HISTORY: Noncontributory. PERSONAL HISTORY: Never smoked. No history of alcohol abuse. SOCIAL HISTORY: Currently in subacute rehab. ALLERGIES: PENICILLIN, PERCOCET, ASPIRIN, OXYCODONE. HOME MEDICATIONS: Tylenol 650 every 6 hours p.r.n., albuterol p.r.n., Lovenox 40 subcu daily, Dilaudid p.r.n., metformin, and simethicone. REVIEW OF SYSTEMS: As per HPI, rest of 12-point review of systems is reviewed and negative. PHYSICAL EXAMINATION: GENERAL: Comfortable in bed, in no acute distress. VITAL SIGNS: Temperature 98.7, heart rate 80 per minute, blood pressure 120/70. HEENT: Oral mucosa pale. NECK: No lymphadenopathy. CHEST: Air entry present and equal bilateral. No added sounds. CARDIOVASCULAR: S1 and S2 normal. No murmur, no gallop. ABDOMEN: Soft, nontender. No hepatosplenomegaly. Surgical scar . EXTREMITIES: Bilateral edema. LABORATORY DATA AND IMAGING: White count 3.6, hemoglobin 7.5, hematocrit 23.7, platelet count 320. Sodium 135, potassium 4.1, BUN 17, creatinine 0.6, glucose 128. Chest x-ray, no infiltrate. She has PICC line, needed to be flushed. Labs ordered for tomorrow morning. If stable hemoglobin and hematocrit, she can be discharged to subacute rehab. ASSESSMENT AND PLAN: 1. Stage IV ovarian cancer, status post debulking surgery. Started on chemotherapy. Received second dose of chemotherapy on Wednesday this week with carboplatin/Taxotere. We will continue weekly chemotherapy 2 week on, 1 week off. 2. Chemotherapy-induced anemia. Two units of blood transfusion today, Aranesp 100 mcg subcu 1 time dose to be given today. 3. Chemotherapy-induced leukopenia, white count 3.6. We will give 1 dose of Granix 480 mcg subcu daily. Pain control with current medications. 4. Hypomagnesemia, magnesium 1.6. Two grams of magnesium IV are ordered. Thank you, Dr. Aponte, for allowing us to participate in Ms. Arshad's care. Amelie Serna MD
[2017-08-12 21:28] VITALS: RESP 20
[2017-08-12 22:09] VITALS: BP 123/65; TEMP 98.9
[2017-08-12] MEDS: Nystatin 100,000 Units/ml Oral Susp 5 ml UD PO SCH (22:19)
--- NOTE | 2017-08-13 04:50 | CP.PCM.PN ---
Subjective - Date & Time of Evaluation Date of Evaluation: 08/13/17 Time of Evaluation: 04:48 - Subjective Subjective: S:A cathflow order was requested for clogged PICC line. Asymptomatic. O: Last Vital Signs 3 Temp 98.9 F 08/12/17 22:00 Pulse 114 H 08/12/17 22:00 Resp 20 08/12/17 22:00 BP 123/65 08/12/17 22:00 Pulse Ox 97 08/12/17 18:00 Asleep. Not in distress. LUNGS:Normal breathing pattern. A:Clogged PICC line. P:Cathflow as ordered. Objective - Vital Signs/Intake and Output Vital Signs (last 24 hours): Temp Pulse Resp BP Pulse Ox 98.9 F 114 H 20 123/65 97 08/12/17 22:00 08/12/17 22:00 08/12/17 22:00 08/12/17 22:00 08/12/17 18:00 Intake and Output: 08/12/17 08/13/17 18:59 06:59 Intake Total 0 375 Output Total 250 Balance 0 125 - Medications Medications: Current Medications Acetaminophen (Tylenol 325mg Tab) 650 mg PO Q6H PRN PRN Reason: Pain, moderate (4-7) Docusate Sodium (Colace) 100 mg PO DAILY [facility] Famotidine (Pepcid) 20 mg PO 1000,2200 [facility] Last Admin: 08/12/17 22:20 Dose: 20 mg Fentanyl (Duragesic) 1 patch TD Q72H [facility] Last Admin: 08/12/17 16:29 Dose: 1 patch Hydromorphone HCl (Dilaudid) 2 mg PO Q4 PRN PRN Reason: Pain, severe (8-10) Insulin Human Lispro (Humalog Low) 0 units SC ACHS [facility] PRN Reason: Protocol Last Admin: 08/12/17 16:19 Dose: Not Given Magnesium Oxide (Mag-Ox) 400 mg PO BID [facility] Nystatin (Nystatin Oral Susp) 5 ml PO QID [facility] Last Admin: 08/12/17 22:19 Dose: 5 ml Ondansetron HCl (Zofran Tab) 4 mg PO Q8H PRN PRN Reason: Nausea/Vomiting Ramipril (Altace) 10 mg PO DAILY [facility] Simethicone (Mylicon Chew Tab) 80 mg PO [facility] PRN PRN Reason: GI distress
[2017-08-13 06:38] VITALS: PULSE 105
[2017-08-13 07:46] LABS: HEMOGLOBIN 9.4 g/dL (12.0-16.0); MEAN CELL VOLUME 87.4 fl (80.0-105.0); MEAN CORPUSCULAR HEMOGLOBIN 28.8 pg (25.0-35.0); MEAN PLATELET VOLUME 8.7 fl (7.0-11.0); RBC 3.26 10^6/uL (3.5-6.1); RED CELL DISTRIBUTION WIDTH 16.1 % (11.5-14.5); WHITE BLOOD COUNT 12.1 10^3/ul (4.5-11.0)
[2017-08-13] MEDS: Insulin Lispro (humaLOG) LOW Coverage SC SCH ×2 (08:04→13:06)
--- NOTE | 2017-08-13 08:20 | CARD ---
APPROVED REPORT EKG Measurement Heart [id number] <Conclusion> Sinus tachycardia Minimal voltage criteria for LVH, may be normal variant Possible Anterior infarct, age undetermined Abnormal ECG
[2017-08-13] MEDS ORDERED: Magnesium Oxide 400 mg Tab UD PO SCH (10:00)
[2017-08-13] MEDS: Nystatin 100,000 Units/ml Oral Susp 5 ml UD PO SCH ×2 (10:04→13:57)
--- NOTE | 2017-08-13 15:00 | HP ---
CHIEF COMPLAINT AND HISTORY OF PRESENT ILLNESS: This is a 62-year-old female who is coming into the hospital because of anemia. She had gone to see Dr. Serna who is her oncologist and was found to be significantly anemic. The patient has a history of ovarian cancer and has been getting treatment. She is currently at a rehab facility. The patient had a hysterectomy about 3 weeks ago and required transfusions postop. The patient has a PICC line and has been getting chemotherapy as an outpatient. She has no complaints of any chest pain, no shortness of breath, no headaches or dizziness, no nausea, no vomiting. She had debulking surgery at [facility]. She has been improving. The patient was staged having stage IV ovarian cancer. The patient was given 2 units of blood transfusions yesterday and was also given Granix. REVIEW OF SYSTEMS: The patient says she is walking better in physical therapy. She has no headaches or dizziness. No nausea, no abdominal pain, no dysuria. All other review of symptoms are within normal limits except what was mentioned. ALLERGIES: PENICILLIN, ACETAMINOPHEN, ASPIRIN, OXYCODONE. FAMILY HISTORY: Noncontributory. PAST SURGICAL HISTORY: Rotator cuff surgery. PAST MEDICAL HISTORY: Diabetes type 2, hypertension. MEDICATIONS: Medications have been reviewed on the APR. PHYSICAL EXAMINATION VITAL SIGNS: Temperature is 98.9, pulse of 116, blood pressure is 123/65, respirations 20. Height is 5 feet 5 inches, weight is 213 pounds, BMI is 35.4. GENERAL: The patient lying in bed, uncomfortable, and in no acute distress. HEENT: Atraumatic and normocephalic. Anicteric sclerae. Moist mucosa. [place] conjunctivae. No oral lesions. NECK: No JVD, anterior and posterior adenopathy, thyromegaly, or bruits. CARDIOVASCULAR: S1 and S2 regular. No murmur, rubs, or gallop. LUNGS: Clear to auscultation bilaterally. No wheezes, rales, or rhonchi. ABDOMEN: Bowel sounds are positive. Soft, nontender and nondistended. No hepatosplenomegaly. No rebound and no guarding EXTREMITIES: No cyanosis, clubbing, or edema. NEUROLOGIC: No facial asymmetry. Tongue is midline. No uvula deviation. Power is 5/5 upper extremity and lower extremity. Sensation intact in upper extremity and lower extremity. PSYCHIATRIC: She is awake, alert and oriented x3. No anxiety or depression. She has normal affect. GENITOURINARY: No CVA tenderness. VASCULAR: 2+ pulses in the carotid pulses and pedal pulses. SKIN: No erythema or nodules SPINE: Shows normal curvature. ASSESSMENT: 1. Acute anemia secondary to chemotherapy and cancer. 2. Hypertension. 3. Diabetes type 2. 4. Hypomagnesemia. PLAN: The patient is currently comfortable. The patient's hemoglobin has improved from 7.5-9.4 after 2 units of transfusion. The patient's anemia is multifactorial. She is on fentanyl for pain. She is on Dilaudid for pain. She was placed on magnesium replacement and also given IV magnesium. The patient was given IV fluids. She is on a heart-healthy diet. She is going to continue with Altace for her hypertension. She is going to be discharged back to her facility. Mauricio Aponte MD
== END 2017-08-13 16:04 ==
LOC: ED 11:32 → ERH 13:18 → 3RSO 14:59
PROVIDERS: ADMIT Internal Medicine Nephrology; ATTEND Internal Medicine Nephrology
DX: C56.9 Malignant neoplasm of unspecified ovary (principal); D63.0 Anemia in neoplastic disease; D64.81 Anemia due to antineoplastic chemotherapy; E83.42 Hypomagnesemia; D70.1 Agranulocytosis secondary to cancer chemotherapy; E11.9 Type 2 diabetes mellitus without complications; H54.62 Unqualified visual loss, left eye, normal vision right eye; H81.09 Meniere's disease, unspecified ear; I10 Essential (primary) hypertension; J90 Pleural effusion, not elsewhere classified; R18.8 Other ascites; T45.1X5A Adverse effect of antineoplastic and immunosuppressive drugs, initial encounter; T82.594A Other mechanical complication of infusion catheter, initial encounter; Y71.2 Prosthetic and other implants, materials and accessory cardiovascular devices associated with adverse incidents; Z88.0 Allergy status to penicillin; Z88.6 Allergy status to analgesic agent; Z88.5 Allergy status to narcotic agent; Z90.710 Acquired absence of both cervix and uterus
CPT/HCPCS: 36415; 36430; 71045; 80053; 82948; 83735; 84466; 85025; 85027; 86850; 86900; 86920; 93005; 96361; 96365; 96375; 99282; G0378; J0881; J1447; J2997; J3475; J7030; P9016

== ENCOUNTER 2017-08-21 20:11 | Inpatient (IN) | payer MEDICARE, OTHER ==
[2017-08-21] MEDS ORDERED: Sodium Chloride 0.9% 1,000 ML IV ONE (20:31)
[2017-08-21] MEDS ORDERED: Morphine 2 mg/ml ISec IVP STA (20:32)
--- NOTE | 2017-08-21 20:39 | ED PDOC ---
Arrival/HPI - General Chief Complaint: GI Problem Time Seen by Provider: 08/21/17 20:12 Historian: Patient - History of Present Illness Narrative History of Present Illness (Text): 08/21/17 20:36 62 year old female, whose past medical history includes hypertension, diabetes, anemia, and ovarian cancer (last chemo was 2 weeks ago), who presents to the emergency department complaining of general malaise. Patient notes associated with nausea, vomiting, and abdominal discomfort. Patient also notes she is "sweating a lot". Patient denies any fever, chills, chest pain, shortness of breath, diarrhea, back pain, neck pain, headache, dizziness, or any other complaints. Time/Duration: 24 hours Symptom Onset: Gradual Symptom Course: Unchanged Activities at Onset: Light Context: Home Past Medical History - Provider Review Nursing Documentation Reviewed: Yes - Infectious Disease Hx of Infectious Diseases: None - Cardiac Hx Cardiac Disorders: Yes Hx Hypertension: Yes - Pulmonary Hx Respiratory Disorders: No - Neurological Hx Neurological Disorder: No - HEENT Hx HEENT Disorder: Yes Hx Blind: Yes (left eye) Other/Comment: Meniere's Disease - Renal Hx Renal Disorder: No - Endocrine/Metabolic Hx Diabetes Mellitus Type 2: Yes - Hematological/Oncological Hx Blood Disorders: No - Integumentary Hx Dermatological Disorder: No - Musculoskeletal/Rheumatological Hx Falls: No - Gastrointestinal Hx Gastrointestinal Disorders: Yes Other/Comment: Peritonitis - Genitourinary/Gynecological Hx Genitourinary Disorders: No - Psychiatric Hx Psychophysiologic Disorder: No Hx Substance Use: No - Surgical History Hx Orthopedic Surgery: Yes (right rotator cuff) Other/Comment: pelvic mass removed lap. - Anesthesia Hx Anesthesia: Yes Hx Anesthesia Reactions: No Hx Malignant Hyperthermia: No Family/Social History - Physician Review Nursing Documentation Reviewed: Yes Family/Social History: Unknown Family HX Smoking Status: Never Smoked Hx Alcohol Use: No Hx Substance Use: No Allergies/Home Meds Allergies/Adverse Reactions: Allergies Penicillins Allergy (Verified 08/12/17 11:43) URTICARIA acetaminophen [From Percocet] Adverse Reaction (Verified 08/12/17 11:43) DIZZINESS aspirin Adverse Reaction (Verified 08/12/17 11:43) PAIN oxycodone Adverse Reaction (Verified 08/12/17 11:43) DIZZINESS Home Medications: Home Meds Medication Instructions Recorded Confirmed Ramipril [Altace] 10 mg PO DAILY 06/15/17 08/21/17 Acetaminophen [Tylenol 160mg/5ml 640 mg PO Q6 PRN 08/12/17 08/21/17 elixir (120ml)] Albuterol HFA [Ventolin HFA 90 2 puff NEB Q6 PRN 08/12/17 08/21/17 mcg/actuation (8 g)] Famotidine [Pepcid] 20 mg PO BID 08/12/17 08/21/17 HYDROmorphone [Dilaudid] 2 mg PO Q4 PRN 08/12/17 08/21/17 Insulin Aspart, Recombinant See Protocol SC ACHS 08/12/17 08/21/17 [Novolog] Ondansetron ODT [Zofran ODT] 4 mg PO Q4 PRN 08/12/17 08/21/17 Simethicone [Mylicon Chew Tab] 80 mg PO QID 08/12/17 08/21/17 Review of Systems - Physician Review All systems were reviewed & negative as marked: Yes - Review of Systems Constitutional: Normal Eyes: Normal ENT: Normal Respiratory: Normal. absent: SOB, Cough Cardiovascular: Normal. absent: Chest Pain Gastrointestinal: Abdominal Pain, Nausea, Vomiting. absent: Diarrhea Genitourinary Female: Normal. absent: Dysuria, Frequency, Hematuria Musculoskeletal: Normal Skin: Normal. absent: Rash Neurological: Normal. absent: Headache, Dizziness Endocrine: Normal Hemo/Lymphatic: Normal Psychiatric: Normal Physical Exam Vital Signs Reviewed: Yes Vital Signs Temp Pulse Resp BP Pulse Ox 08/22/17 03:22 97.8 F 126 H 18 146/80 100 08/22/17 00:55 98.1 F 122 H 18 126/74 100 08/21/17 20:23 97.5 F L 128 H 18 163/94 H 100 Temperature: Afebrile Blood Pressure: Hypertensive Pulse: Tachycardic Respiratory Rate: Normal Appearance: Positive for: Well-Appearing, Non-Toxic, Comfortable Pain Distress: None Mental Status: Positive for: Alert and Oriented X 3 - Systems Exam Head: Present: Atraumatic, Normocephalic Pupils: Present: PERRL Extroacular Muscles: Present: EOMI Conjunctiva: Present: Normal Mouth: Present: Moist Mucous Membranes Neck: Present: Normal Range of Motion. No: Meningeal Signs, MIDLINE TENDERNESS , Paraspinal Tenderness Respiratory/Chest: Present: Clear to Auscultation, Good Air Exchange. No: Respiratory Distress, Accessory Muscle Use Cardiovascular: Present: Regular Rate and Rhythm, Normal S1, S2. No: Murmurs Abdomen: Present: Tenderness (mild diffuse tenderness), Distention (mild abdominal distention). No: Peritoneal Signs Back: Present: Normal Inspection. No: CVA Tenderness, Midline Tenderness, Paraspinal Tenderness Upper Extremity: Present: Normal Inspection. No: Cyanosis, Edema Lower Extremity: Present: Normal Inspection. No: Edema, CALF TENDERNESS Neurological: Present: GCS=15, CN II-XII Intact, Speech Normal Skin: Present: Warm, Dry, Pale. No: Rashes Psychiatric: Present: Alert, Oriented x 3, Normal Insight, Normal Concentration Medical Decision Making ED Course and Treatment: 08/21/17 20:42 Impression: 62 year old female presents to the emergency department complaining of general malaise, abdominal discomfort, nausea, and vomiting. Plan: -- VBG -- CT Abd/Pelvis -- EKG -- Labs -- CXR -- Morphine -- Pepcid -- Sodium Chloride -- Zofran -- Blood Culture -- Urine Culture -- UA -- Reassess and disposition Progress Notes: 08/21/17 21:03 EKG reviewed, shows Sinus tachycardia at [address] bpm[address] Non-specific ST/T changes. 08/21/17 23:22 CODE SEPSIS ACTIVATED. 08/21/17 23:56 Chest X-ray reviewed, shows no acute processes. 08/22/17 00:57 CT of Abdomen/Pelvis reviewed by radiologist, shows: IMPRESSION: Marked progression of disease, 3 new pulmonary nodules suspicious for metastases; interval development of peritoneal carcinomatosis; multiple complex masses in the abdomen and pelvis consistent with metastatic deposits; loculated fluid collection with fluid fluid level suggesting layering blood products; probable anemia; possible early/developing small bowel obstruction; mild bilateral ureterectasis; gallstones. 08/22/17 00:50 Discussed case with surgical appliance fitter, who is aware and agrees with Emergency department management plan. 08/22/17 01:[address] Roblero, covering for Dr. Aponte, who is aware and agrees with Emergency department management plan, accepts patient under Dr. Aponte's service. Requests Dr. Gallo, Dr. Lee and Dr. Serna on consult. 08/22/17 01:[address] Almaguer, who is aware and agrees with plan, will evaluate patient for ICU admission. 08/22/17 01:29 Dr. Almaguer evaluated patient at bedside. 08/22/17 03:00 Consult for possible ICU admit was requested.Pt. was evaluated by the child care team lead and medical technician assistant.Determined that patient is stable for Telemetry and not an ICU candidate at this time. - Lab Interpretations Lab Results: 08/21/17 21:32 08/21/17 21:32 Lab Results 08/22/17 02:05: POC Glucose (mg/dL) 187 H 08/22/17 01:10: pO2 121 H, VBG pH 7.30 L, VBG pCO2 41.0, VBG HCO3 20.2 L, VBG Total CO2 21.5 L, VBG O2 Sat (Calc) 99.3 H, VBG Base Excess -5.9 L, VBG Potassium 5.0, Sodium 133.0, Chloride 103.0, Glucose 192 H, Lactate 1.9, FiO2 21.0, Venous Blood Potassium 5.0 08/22/17 00:24: Urine Color Yellow, Urine Appearance Sl cloudy, Urine pH 6.0, Ur Specific [place] >= 1.030, Urine Protein 100 H, Urine Glucose (UA) Negative, Urine Ketones 15 H, Urine Blood Trace-intact H, Urine Nitrate Negative, Urine Bilirubin Small H, Urine Urobilinogen 1.0 H, Ur Leukocyte Esterase Trace H, Urine RBC 1 - 3, Urine WBC 2 - 5, Ur Epithelial Cells 1 - 3, Urine Bacteria Mod 08/21/17 21:32: Sodium 132, Chloride 97 L, Potassium 5.1 H, Carbon Dioxide 17 L , Anion Gap 23 H, BUN 36 H, Creatinine 2.1 H, Est GFR ( Amer) 29, Est GFR (Non-Af Amer) 24, Random Glucose 252 H, Calcium 9.4, Total Bilirubin 0.7, AST 26, ALT 25, Alkaline Phosphatase 115, Lactate Dehydrogenase 831 H, Total Creatine Kinase 38, Troponin I < 0.01, Total Protein 6.9, Albumin 3.7, Globulin 3.3, Albumin/Globulin Ratio 1.1 08/21/17 21:32: pO2 61 H, VBG pH 7.30 L, VBG pCO2 39.0 L, VBG HCO3 19.2 L, VBG Total CO2 20.4 L, VBG O2 Sat (Calc) 93.7 H, VBG Base Excess -6.7 L, VBG Potassium 5.1, Sodium 131.0 L, Chloride 100.0, Glucose 271 H, Lactate 3.1 H, FiO2 21.0, Venous Blood Potassium 5.1 08/21/17 21:32: PT 12.6 H, INR 1.10 H, APTT 24.1 L 08/21/17 21:32: WBC 22.3 H D, RBC 3.25 L, Hgb 9.3 L, Hct 28.8 L, MCV 88.6, MCH 28.6, MCHC 32.3, RDW 16.9 H, Plt Count 359, MPV 9.4, Gran % 80.3 H, Lymph % ( Auto) 10.8 L, [place] % (Auto) 8.5 H, Eos % (Auto) 0.0 L, Baso % (Auto) 0.4, Gran # 17.92 H, Lymph # (Auto) 2.4, [place] # (Auto) 1.9 H, Eos # (Auto) 0.0, Baso # ( Auto) 0.08 - RAD Interpretation Radiology Orders: 08/21/17 20:31 CHEST PORTABLE [RAD] Stat 08/21/17 20:33 ABD & PELVIS W/O PO OR IV CONT [CT] Stat Global Program Manager: ED Physician, Radiologist - Medication Orders Current Medication Orders: Heparin Sodium (Porcine) (Heparin) 5,000 units SC Q8 SAM PRN Reason: Protocol Metronidazole (Flagyl) 500 mg in 100 mls @ 100 mls/hr IVPB Q8 SAM PRN Reason: Protocol Insulin Human Regular (Humulin R Med) 0 units SC Q6 SMA PRN Reason: Protocol Ipratropium [place] (Atrovent) 0.5 mg IH Q3 PRN PRN Reason: Shortness of Breath Levalbuterol HCl (Xopenex) 1.25 mg IH Q3 PRN PRN Reason: Shortness of Breath Ondansetron HCl (Zofran Inj) 4 mg IVP Q6H PRN PRN Reason: Nausea/Vomiting Discontinued Medications Famotidine (Pepcid) 20 mg IVP STAT STA Stop: 08/21/17 20:33 Last Admin: 08/21/17 21:29 Dose: 20 mg IVP Administration Document 08/21/17 21:29 RG (Rec: 08/21/17 21:48 [id number] Charges for Administration # of IVP Administrations 1 Sodium Chloride (Sodium Chloride 0.9%) 1,000 mls @ 2,000 mls/hr IV .Q30M ONE Stop: 08/21/17 21:00 Last Admin: 08/21/17 21:39 Dose: 2,000 mls/hr eMAR Start Stop Document 08/21/17 21:39 RG (Rec: 08/21/17 21:47 [id number] Intravenous Solution Start Date 08/21/17 Start Time 21:39 Aztreonam (Azactam 1 Gm) 100 mls @ 100 mls/hr IVPB STAT STA PRN Reason: Protocol Stop: 08/22/17 00:30 Last Admin: 08/22/17 00:35 Dose: 100 mls/hr eMAR Start Stop Document 08/22/17 00:35 RG (Rec: 08/22/17 00:48 [id number] Intravenous Solution Start Date 08/22/17 Start Time 00:35 Metronidazole (Flagyl) 500 mg in 100 mls @ 100 mls/hr IV STAT STA PRN Reason: Protocol Stop: 08/22/17 00:31 Last Admin: 08/21/17 23:40 Dose: 100 mls/hr eMAR Start Stop Document 08/21/17 23:40 RG (Rec: 08/21/17 23:40 [id number][facility] Intravenous Solution Start Date 08/21/17 Start Time 23:40 Sodium Chloride (Sodium Chloride 0.9%) 1,000 mls @ 999 mls/hr IV .Q1H1M STA Stop: 08/22/17 00:32 Last Admin: 08/21/17 23:40 Dose: 999 mls/hr eMAR Start Stop Document 08/21/17 23:40 RG (Rec: 08/21/17 23:40 [id number][facility] Intravenous Solution Start Date 08/21/17 Start Time 23:40 Morphine Sulfate (Morphine) 2 mg IVP STAT STA Stop: 08/21/17 20:33 Last Admin: 08/21/17 21:29 Dose: 2 mg MAR Pain Assessment Document 08/21/17 21:29 RG (Rec: 08/21/17 21:39 [id number][facility] Pain Reassessment Is this a pain reassessment? Yes Sleep Is patient sleeping during reassessment? No Presence of Pain Presence of Pain Yes Location Upper or Lower Upper Pain Location Body Site Abdomen IVP Administration Document 08/21/17 21:29 RG (Rec: 08/21/17 21:39 [id number] Charges for Administration # of IVP Administrations 1 Re-Assess: MAR Pain Assessment Document 08/21/17 22:29 (Rec: 08/22/17 03:46 [id number][facility] Pain Reassessment Is this a pain reassessment? Yes Sleep Is patient sleeping during reassessment? Yes Ondansetron HCl (Zofran Inj) 4 mg IVP ONCE ONE Stop: 08/21/17 20:33 Last Admin: 08/21/17 21:30 Dose: 4 mg IVP Administration Document 08/21/17 21:30 RG (Rec: 08/21/17 21:47 [id number][facility] Charges for Administration # of IVP Administrations 1 Ondansetron HCl (Zofran Inj) 4 mg IVP ONCE ONE Stop: 08/22/17 00:03 Last Admin: 08/22/17 00:05 Dose: 4 mg IVP Administration Document 08/22/17 00:05 (Rec: 08/22/17 03:21 [id number][facility] Charges for Administration # of IVP Administrations 1 - Scribe Statement The provider has reviewed the documentation as recorded by the Scribe Winnie Jansen All medical record entries made by the Scribe were at my direction and personally dictated by me. I have reviewed the chart and agree that the record accurately reflects my personal performance of the history, physical exam, medical decision making, and the department course for this patient. I have also personally directed, reviewed, and agree with the discharge instructions and disposition. Disposition/Present on Arrival - Present on Arrival Any Indicators Present on Arrival: No History of DVT/PE: No History of Uncontrolled Diabetes: No Urinary Catheter: No History of Decub. Ulcer: No History Surgical Site Infection Following: None - Disposition Have Diagnosis and Disposition been Completed?: Yes Diagnosis: Abdominal pain, Abdominal mass, Sepsis Disposition: HOSPITALIZED Disposition Time: 03:50 Patient Plan: Admission Patient Problems: Current Active Problems Problem Status Onset Abdominal mass Acute Abdominal pain Acute Sepsis Acute Condition: GUARDED Discharge Instructions (ExitCare): Sepsis (ED) Referrals: Mauricio Aponte MD [Primary Care Provider] - Follow up with primary Forms: [employer] (Romansh)
[2017-08-21 21:43] LABS: BASO # 0.08 K/mm3 (0.0-2.0); BASO % 0.4 % (0.0-3.0); GRAN # 17.92 (1.4-6.5); GRAN % 80.3 % (50.0-68.0); HEMOGLOBIN 9.3 g/dL (12.0-16.0); LYMPH # 2.4 (1.2-3.4); LYMPH % 10.8 % (22.0-35.0); MEAN CELL VOLUME 88.6 fl (80.0-105.0); MEAN CORPUSCULAR HEMOGLOBIN 28.6 pg (25.0-35.0); MEAN CORPUSCULAR HGB CONC 32.3 g/dl (31.0-37.0); MEAN PLATELET VOLUME 9.4 fl (7.0-11.0); MONO # 1.9 (0.1-0.6); MONO % 8.5 % (1.0-6.0); RBC 3.25 10^6/uL (3.5-6.1); RED CELL DISTRIBUTION WIDTH 16.9 % (11.5-14.5); WHITE BLOOD COUNT 22.3 10^3/ul (4.5-11.0)
[2017-08-21 21:52] LABS: VENOUS BLOOD GAS BASE EXCESS -6.7 mmol/L (0.0-2.0); VENOUS BLOOD GAS PO2 61 mm/Hg (30-55)
[2017-08-21 21:55] LABS: ALB/GLOB RATIO 1.1 (1.1-1.8); ALBUMIN 3.7 g/dL (3.0-4.8); ALT/SGPT 25 U/L (7-56); AST/SGOT 26 U/L (14-36); BLOOD UREA NITROGEN 36 mg/dL (7-21); CALCIUM 9.4 mg/dL (8.4-10.5); GFR AFRICAN-AMERICAN 29; GFR NON-AFRICAN AMERICAN 24
[2017-08-21 22:00] LABS: INR 1.1 (0.93-1.08); PARTIAL THROMBOPLASTIN TIME 24.1 Seconds (25.1-36.5); PROTHROMBIN TIME 12.6 SECONDS (9.4-12.5)
[2017-08-21 22:02] LABS: TROPONIN I < 0.01 ng/mL
[2017-08-21] MEDS ORDERED: Aztreonam 1 Gm in NS 100mL 100 ML IVPB STA (23:31)
[2017-08-21] MEDS ORDERED: metroNIDAZOLE IV 500 mg/100 ml 500 MG/100 ML BAG IV STA (23:32)
[2017-08-21] MEDS ORDERED: Sodium Chloride 0.9% 1,000 ML IV STA (23:32)
--- NOTE | 2017-08-22 00:51 | CT ---
EXAM: CT Abdomen and Pelvis Without Intravenous Contrast EXAM DATE/TIME: 08/21/2017 8:33 PM CLINICAL HISTORY: 62 years old, female; Pain; Abdominal pain; Generalized; Prior surgery; Surgery date: 6+ months; Surgery type: Status post hysterectomy and oophorectomies; Patient HX: HX ovarian ca TECHNIQUE: Axial computed tomography images of the abdomen and pelvis without intravenous contrast. All CT scans at this facility use at least one of these dose optimization techniques: automated exposure control; mA and/or kV adjustment per patient size (includes targeted exams where dose is matched to clinical indication); or iterative reconstruction. Coronal and sagittal reformatted images were created and reviewed. COMPARISON: CT - ABD PELVIS IV CONTRAST ONLY 2017-06-15 17:22 FINDINGS: Limitation: Evaluation of the abdomen and pelvis is limited by lack of oral and intravenous contrast Lower thorax: Heart size is normal. There is decreased attenuation of blood pool relative to myocardium. There is a new 6 mm peripheral right lower lobe pulmonary nodule. There is a new 8mm right lower lobe pulmonary nodule along the diaphragmatic surface. There is a new 8.2 mm left lower lobe pulmonary nodule ABDOMEN: Liver: There are subcapsular hepatic masses versus fluid collections along the inferior right lobe of the liver. Gallbladder and bile ducts: The gallbladder is distended with multiple stones. Increased attenuation of bile suggest milk of calcium. Common duct is unremarkable. Pancreas: Pancreas is atrophic. Spleen: unremarkable Adrenals: unremarkable Kidneys and ureters: Kidneys are normal in size. There is been interval development of mild bilateral ureterectasis right greater than left. Stomach and bowel: Stomach is partially distended with an air-fluid level. Rotation is normal. There are dilated small bowel loops in the left upper quadrant and left flank. There air-fluid levels. Mid and distal small bowel is difficult to identify and evaluate. Ileocecal region is poorly visualized. Transverse colon is displaced but masses in the upper abdomen. Descending colon is decompressed. PELVIS: Appendix: See stomach and bowel Bladder: Bladder is almost empty. Reproductive: Uterus and ovaries have been removed. ABDOMEN and PELVIS: Intraperitoneal space: There is a large fluid collection in the pelvis. There are fluid fluid levels suggesting layering blood. There are multiple solid nodules in the mesentery and omentum. There are multiple cystic masses in the abdomen and pelvis Bones/joints: There are degenerative changes in the osseus structures. Soft tissues: There is body wall edema. Lymph nodes: There are enlarged left iliac nodes. IMPRESSION: Marked progression of disease, 3 new pulmonary nodules suspicious for metastases; interval development of peritoneal carcinomatosis; multiple complex masses in the abdomen and pelvis consistent with metastatic deposits; loculated fluid collection with fluid fluid level suggesting layering blood products; probable anemia; possible early/developing small bowel obstruction; mild bilateral ureterectasis; gallstones Findings were discussed with Anurag Vasquez at 12:48 AM EDT on 08/22/2017.
[2017-08-22 00:54] LABS: URINE BILIRUBIN SMALL (NEGATIVE); URINE BLOOD TRACE-INTACT (NEGATIVE); URINE GLUCOSE (UA) NEGATIVE (NEGATIVE); URINE LEUKOCYTE ESTERASE TRACE Leu/uL (NEGATIVE); URINE PROTEIN 100 mg/dL (<30 mg/dL)
[2017-08-22 01:02] LABS: URINE APPEARANCE SL CLOUDY (CLEAR); URINE COLOR YELLOW (YELLOW)
[2017-08-22 01:18] LABS: URINE BACTERIA MOD (NEG)
[2017-08-22 01:28] LABS: VENOUS BLOOD GAS BASE EXCESS -5.9 mmol/L (0.0-2.0); VENOUS BLOOD GAS PO2 121 mm/Hg (30-55)
--- NOTE | 2017-08-22 01:33 | CP.PCM.CON ---
<HubertSilva - Last Filed: 08/22/17 04:57> History of Present Illness - History of Present Illness History of Present Illness: PGY-[address] Almaguer ICU consult: sepsis with oliguric, SOB Ms Arshad, 62 F, Hx of ovarian cancer on carboplatin/taxol 2 weeks ago, s/p debulking surgery 2 months ago, with chemo-induced anemia s/p 2u pRBC 2 weeks ago, was transferred from rehab ("[facility]") to [facility] ED for sweating, nausea/ vomiting, and worsening of general malaise. After the debulking surgery at [facility], pt was in rehab. She participated in rehab 2 days ago. However, yesterday she was so tired that she "collapse" and could not participates in rehab. Pt noted that she did not urinate for the whole day. Today, she could not get out of bed. She also has pressure like abdominal pain, constant, associated with N/V. ROS: (+) sweating (+) N/V/Abd pain (+) SOB (+) tiredness (+) oliguria Denies fever, chills, chest pain, diarrhea, back pain, neck pain, headache, dizziness. CT A/P (08/21/17): Marked progression of disease, 3 new pulmonary nodules; New peritoneal carcinomatosis; multiple complex masses in the abdomen and pelvis; loculated fluid collection with fluid fluid level suggesting layering blood products; possible early/developing small bowel obstruction; mild bilateral ureterectasis; gallstones. PET CT (06/2017): - large heterogenous mass in pelvis (sepation, cyst, necrotic) 13.4cm x 11.5cm x 9.6cm - Ascites in abdomen/pelvis - medium size R effusion - 9mm nodule L lower lobe PMH Metastatic ovarian cancer, large pelvic mass - started weekly carboplatin/Taxol - chemo 2 week HTN Meniere disease DM 2, A1C Cholelithiasis Hx peritonitis L eye blind at [facility] Rotator cuff surgery, 2009 Debulking surgery & hysterectomy, June 2017 - [facility] - Dr López" - complicated surgical course requireing ICU x 2 weeks; Ascites, respiratory distress, bilateral pleural effusion drainage FH DM, CAD SH Never smoke All Penicillin - rash Tylenol side effect Aspirin side effect = stomach burn Oxycodone/percocet = stroke like symotoms Med simethacone, ramipril 10, zofran ODT, insulin, dilaudid, fentynl, pepcid, ventolin, tylenol Past Patient History - Infectious Disease Hx of Infectious Diseases: None - Past Social History Smoking Status: Never Smoked - CARDIAC Hx Cardiac Disorders: Yes Hx Hypertension: Yes - PULMONARY Hx Respiratory Disorders: No - NEUROLOGICAL Hx Neurological Disorder: No - HEENT Hx HEENT Problems: Yes Hx Blind: Yes (left eye) Other/Comment: Meniere's Disease - RENAL Hx Chronic Kidney Disease: No - ENDOCRINE/METABOLIC Hx Diabetes Mellitus Type 2: Yes - HEMATOLOGICAL/ONCOLOGICAL Hx Blood Disorders: No - INTEGUMENTARY Hx Dermatological Problems: No - MUSCULOSKELETAL/RHEUMATOLOGICAL Hx Falls: No - GASTROINTESTINAL Hx Gastrointestinal Disorders: Yes Other/Comment: Peritonitis - GENITOURINARY/GYNECOLOGICAL Hx Genitourinary Disorders: No - PSYCHIATRIC Hx Psychophysiologic Disorder: No Hx Substance Use: No - SURGICAL HISTORY Hx Orthopedic Surgery: Yes (right rotator cuff) Other/Comment: pelvic mass removed lap. - ANESTHESIA Hx Anesthesia: Yes Hx Anesthesia Reactions: No Hx Malignant Hyperthermia: No Meds Allergies/Adverse Reactions: Allergies Allergy/AdvReac Type Severity Reaction Status Date / Time Penicillins Allergy URTICARIA Verified 08/12/17 11:43 acetaminophen [From Percocet] AdvReac DIZZINESS Verified 08/12/17 11:43 aspirin AdvReac PAIN Verified 08/12/17 11:43 oxycodone AdvReac DIZZINESS Verified 08/12/17 11:43 Physical Exam - Constitutional Appears: Non-toxic Additional comments: able to complete full sentences - Head Exam Head Exam: ATRAUMATIC, NORMAL INSPECTION, NORMOCEPHALIC - Eye Exam Eye Exam: EOMI, Normal appearance, PERRL. absent: Scleral icterus Pupil Exam: NORMAL ACCOMODATION - ENT Exam ENT Exam: Mucous Membranes Moist - Neck Exam Additional comments: supple, no jvd - Respiratory Exam Respiratory Exam: Decreased Breath Sounds (lung bases), Clear to Auscultation Bilateral. absent: Rales, Rhonchi, Wheezes - Cardiovascular Exam Cardiovascular Exam: Tachycardia, REGULAR RHYTHM, +S1, +S2. absent: Systolic Murmur - GI/Abdominal Exam GI & Abdominal Exam: Diminished Bowel Sounds, Tenderness (epigastric, all quadrants upon deep palpation). absent: Distended - Extremities Exam Extremities exam: Positive for: normal capillary refill, pedal edema (slight), pedal pulses present - Psychiatric Exam Psychiatric exam: Normal Affect, Normal Mood - Skin Skin Exam: Dry, Warm Additional comments: not diaphoretic Results - Vital Signs Recent Vital Signs: Last Vital Signs Temp 98.1 F 08/22/17 00:55 Pulse 122 H 08/22/17 00:55 Resp 18 08/22/17 00:55 BP 126/74 08/22/17 00:55 Pulse Ox 100 08/22/17 00:55 - Labs Result Diagrams: 08/21/17 21:32 08/22/17 03:08 Labs: Laboratory Results - last 24 hr 08/21/17 08/21/17 08/21/17 21:32 21:32 21:32 WBC 22.3 H D RBC 3.25 L Hgb 9.3 L Hct 28.8 L MCV 88.6 MCH 28.6 MCHC 32.3 RDW 16.9 H Plt Count 359 MPV 9.4 Gran % 80.3 H Lymph % (Auto) 10.8 L Howard % (Auto) 8.5 H Eos % (Auto) 0.0 L Baso % (Auto) 0.4 Gran # 17.92 H Lymph # (Auto) 2.4 Howard # (Auto) 1.9 H Eos # (Auto) 0.0 Baso # (Auto) 0.08 PT 12.6 H INR 1.10 H APTT 24.1 L pO2 61 H VBG pH 7.30 L VBG pCO2 39.0 L VBG HCO3 19.2 L VBG Total CO2 20.4 L VBG O2 Sat (Calc) 93.7 H VBG Base Excess -6.7 L VBG Potassium 5.1 Sodium 131.0 L Chloride 100.0 Glucose 271 H Lactate 3.1 H FiO2 21.0 Potassium Carbon Dioxide Anion Gap BUN Creatinine Est GFR ( Amer) Est GFR (Non-Af Amer) Random Glucose Calcium Total Bilirubin AST ALT Alkaline Phosphatase Lactate Dehydrogenase Total Creatine Kinase Troponin I Total Protein Albumin Globulin Albumin/Globulin Ratio Venous Blood Potassium 5.1 Urine Color Urine Appearance Urine pH Ur Specific [place] Urine Protein Urine Glucose (UA) Urine Ketones Urine Blood Urine Nitrate Urine Bilirubin Urine Urobilinogen Ur Leukocyte Esterase Urine RBC Urine WBC Ur Epithelial Cells Urine Bacteria 08/21/17 08/22/17 08/22/17 21:32 00:24 01:10 WBC RBC Hgb Hct MCV MCH MCHC RDW Plt Count MPV Gran % Lymph % (Auto) Howard % (Auto) Eos % (Auto) Baso % (Auto) Gran # Lymph # (Auto) Howard # (Auto) Eos # (Auto) Baso # (Auto) PT INR APTT pO2 121 H VBG pH 7.30 L VBG pCO2 41.0 VBG HCO3 20.2 L VBG Total CO2 21.5 L VBG O2 Sat (Calc) 99.3 H VBG Base Excess -5.9 L VBG Potassium 5.0 Sodium 132 133.0 Chloride 97 L 103.0 Glucose 192 H Lactate 1.9 FiO2 21.0 Potassium 5.1 H Carbon Dioxide 17 L Anion Gap 23 H BUN 36 H Creatinine 2.1 H Est GFR ( Amer) 29 Est GFR (Non-Af Amer) 24 Random Glucose 252 H Calcium 9.4 Total Bilirubin 0.7 AST 26 ALT 25 Alkaline Phosphatase 115 Lactate Dehydrogenase 831 H Total Creatine Kinase 38 Troponin I < 0.01 Total Protein 6.9 Albumin 3.7 Globulin 3.3 Albumin/Globulin Ratio 1.1 Venous Blood Potassium 5.0 Urine Color Yellow Urine Appearance Sl cloudy Urine pH 6.0 Ur Specific [place] >= 1.030 Urine Protein 100 H Urine Glucose (UA) Negative Urine Ketones 15 H Urine Blood Trace-intact H Urine Nitrate Negative Urine Bilirubin Small H Urine Urobilinogen 1.0 H Ur Leukocyte Esterase Trace H Urine RBC 1 - 3 Urine WBC 2 - 5 Ur Epithelial Cells 1 - 3 Urine Bacteria Mod Assessment & Plan - Assessment and Plan (Free Text) Plan: Ms Arshad, 62 F, Hx of ovarian cancer on carboplatin/taxol 2 weeks ago, s/p debulking surgery 2 months ago, with chemo-induced anemia s/p 2u pRBC 2 weeks ago, was transferred from rehab ("[facility]") to [facility] ED for sweating, nausea/ vomiting, and worsening of general malaise, and oliguria. ICU consulted for severe sepsis with ROSELYN and oliguria, SOB Pt does not meet ICU admission criteria: hemodynamically stable. Lactate trending down from 3.1 to 1.9. No signs of shock. Sepsis likely from UTI vs intraabdomen infection Sinus tachycardia - Agree with aztreonam and flagyl - ID consult - lactate 3.1 to 1.9 after 3L NS fluid resuscitation ROSELYN with Oliguria mild bilateral ureterectasis - bladder scan 0cc - ketone in urine - pre-renal vs intrinsic vs post-renal? - NS@100 for now -- pending result of lab to determine if need bicarb gtt Sinus tachycardia Diaphoresis On chronic dilaudid - Any chance to opioid withdraw?? - continue to trend trops and serial EKG in AM Anion gap metabolic acidosis likely from lactic acidosis. Unlikely DKA Suspect SOB is from decrease diaphragmatic excursion due to mass effect in abdomen vs. respiratory compensation - Pending ABG with lactate - Pending redrawn lab result to see if bicarb gtt or not vs NS Abdominal pain with nausea and vomiting Possible SBO - NPO - Zofran PRN - morphine 1q3 prn - surgery consult Hx ovarian cancer - Onc consult PVX - protonix, heparin sc s/r/d/w Dr. Almaguer <Ruth Almaguer - Last Filed: 08/22/17 06:21> Meds - Medications Medications: Current Medications Heparin Sodium (Porcine) (Heparin) 5,000 units SC Q8 SAM PRN Reason: Protocol Metronidazole (Flagyl) 500 mg in 100 mls @ 100 mls/hr IVPB Q8 SAM PRN Reason: Protocol Sodium Chloride (Sodium Chloride 0.9%) 1,000 mls @ 100 mls/hr IV .Q10H [facility] Last Admin: 08/22/17 04:44 Dose: 100 mls/hr Insulin Human Regular (Humulin R Med) 0 units SC Q6 SAM PRN Reason: Protocol Ipratropium [place] (Atrovent) 0.5 mg IH Q3 PRN PRN Reason: Shortness of Breath Levalbuterol HCl (Xopenex) 1.25 mg IH Q3 PRN PRN Reason: Shortness of Breath Morphine Sulfate (Morphine) 1 mg IVP Q3 PRN PRN Reason: Pain, moderate (4-7) Ondansetron HCl (Zofran Inj) 4 mg IVP Q6H PRN PRN Reason: Nausea/Vomiting Last Admin: 08/22/17 04:00 Dose: 4 mg Results - Vital Signs Recent Vital Signs: Last Vital Signs Temp 97.7 F 08/22/17 05:11 Pulse 132 H 08/22/17 05:11 Resp 18 08/22/17 05:11 BP 137/87 08/22/17 05:11 Pulse Ox 100 08/22/17 05:11 - Labs Result Diagrams: 08/21/17 21:32 08/22/17 03:08 Labs: Laboratory Results - last 24 hr 08/22/17 04:45 pCO2 26 L pO2 116.0 H HCO3 15.4 L ABG pH 7.38 ABG Total CO2 16.2 L ABG O2 Saturation 99.2 H ABG Base Excess -8.0 L ABG Potassium 4.9 Sodium 133.0 Chloride 106.0 Glucose 260 H Lactate 2.3 H FiO2 28.0 Arterial Blood Potassium 4.9 Attending/Attestation - Attestation I have personally seen and examined this patient.: Yes I have fully participated in the care of the patient.: Yes I have reviewed all pertinent clinical information: Yes Notes (Text): 08/22/17 06:14 Patient was seen when she was in the ER. Agree with consult note.
--- NOTE | 2017-08-22 02:08 | CP.PCM.CON ---
History of Present Illness - History of Present Illness History of Present Illness: General Surgery Consult for Dr. Gallo Reason for Consult: abdominal pain, possible SBO 62 F with PMH that incudes ovarian cancer on carboplatin/taxol, s/p debulking surgery 2 months ago, chemo-induced anemia who was brought in by EMS from [facility] to [facility] for nausea/vomiting and abdominal pain. Patient was seen and evaluated in the ED. She reports gradual onset of symptoms but abruptly had gotten progressively worse. She reports numerous episodes of nausea/vomiting with NBNB emesis prior to arrival. Patient states that since her chemo began she has felt extreme malaise. Patient was sent to [facility] after the debulking surgery at [facility]. Patient needed [facility] due to her complicated hospital course after surgery. She was in the ICU for 2 weeks, developed Ascites, respiratory distress and required bilateral pleural effusion drainage. She also stated she "collapsed" during physical therapy yesterday. Prior to yesterday, she had been able to participate in physical therapy. Also, she has not been able to urinate for one day. Patient has been unable to get out of bed today. She rates pain as moderate to severe. She describes pain as constant pressure located diffusely throughout abdomen. She denies any specific aggravating or alleviating factors. Admits to diaphoresis, SOB, maliase, palpitations, oliguria. Denies fever/chills , chest pain, diarrhea, headache, dizziness/lightheadedness, vertigo, syncope, incontinence, numbness/tingling. CT abd/pelvis was done in the ED and demonstrated marked progression of disease, 3 new pulmonary nodules; New peritoneal carcinomatosis; multiple complex masses in the abdomen and pelvis; loculated fluid collection with fluid level suggesting layering blood products; possible early/developing small bowel obstruction; mild bilateral ureterectasis ; gallstones. PMH: Metastatic ovarian cancer and large pelvic mass on chemo, HTN, Meniere disease, DM, Cholelithiasis, L eye blind at Med: simethacone, ramipril, zofran,insulin, dilaudid, fentynl, pepcid, ventolin , tylenol All: PCN - rash, Tylenol, Aspirin, Oxycodone - stroke like symptoms PSH: Rotator cuff surgery (2009), Debulking surgery & hysterectomy ( 2018 at [facility] by Dr Lloyd) FH: DM, CAD Social: denies tobacco/EtOH/illicit drug use Review of Systems - Review of Systems All systems: reviewed and no additional remarkable complaints except (as per HPI ) Past Patient History - Infectious Disease Hx of Infectious Diseases: None - Past Social History Smoking Status: Never Smoked - CARDIAC Hx Cardiac Disorders: Yes Hx Hypertension: Yes - PULMONARY Hx Respiratory Disorders: No - NEUROLOGICAL Hx Neurological Disorder: No - HEENT Hx HEENT Problems: Yes Hx Blind: Yes (left eye) Other/Comment: Meniere's Disease - RENAL Hx Chronic Kidney Disease: No - ENDOCRINE/METABOLIC Hx Diabetes Mellitus Type 2: Yes - HEMATOLOGICAL/ONCOLOGICAL Hx Blood Disorders: No - INTEGUMENTARY Hx Dermatological Problems: No - MUSCULOSKELETAL/RHEUMATOLOGICAL Hx Falls: No - GASTROINTESTINAL Hx Gastrointestinal Disorders: Yes Other/Comment: Peritonitis - GENITOURINARY/GYNECOLOGICAL Hx Genitourinary Disorders: No - PSYCHIATRIC Hx Psychophysiologic Disorder: No Hx Substance Use: No - SURGICAL HISTORY Hx Orthopedic Surgery: Yes (right rotator cuff) Other/Comment: pelvic mass removed lap. - ANESTHESIA Hx Anesthesia: Yes Hx Anesthesia Reactions: No Hx Malignant Hyperthermia: No Meds Allergies/Adverse Reactions: Allergies Allergy/AdvReac Type Severity Reaction Status Date / Time Penicillins Allergy URTICARIA Verified 08/12/17 11:43 acetaminophen [From Percocet] AdvReac DIZZINESS Verified 08/12/17 11:43 aspirin AdvReac PAIN Verified 08/12/17 11:43 oxycodone AdvReac DIZZINESS Verified 08/12/17 11:43 Physical Exam - Additional Findings Additional findings: - Constitutional Appears: Non-toxic - Head Exam Head Exam: ATRAUMATIC, NORMAL INSPECTION, NORMOCEPHALIC - Eye Exam Eye Exam: EOMI, Normal appearance, PERRL. absent: Scleral icterus Pupil Exam: NORMAL ACCOMODATION - ENT Exam ENT Exam: Mucous Membranes Moist - Neck Exam Additional comments: trachea midline, no jvd - Respiratory Exam Respiratory Exam: Decreased Breath Sounds (lung bases), Clear to Auscultation Bilateral. absent: Rales, Rhonchi, Wheezes - Cardiovascular Exam Cardiovascular Exam: Tachycardia, REGULAR RHYTHM, +S1, +S2. absent: Systolic Murmur - GI/Abdominal Exam GI & Abdominal Exam: Diminished Bowel Sounds, Soft, Mass, Tenderness (diffuse), Distended - Extremities Exam Extremities exam: Positive for: normal capillary refill, pedal edema (slight), pedal pulses present - Psychiatric Exam Psychiatric exam: Normal Affect, Normal Mood - Skin Skin Exam: Dry, Warm Results - Vital Signs Recent Vital Signs: Last Vital Signs Temp 98.1 F 08/22/17 00:55 Pulse 122 H 08/22/17 00:55 Resp 18 08/22/17 00:55 BP 126/74 08/22/17 00:55 Pulse Ox 100 08/22/17 00:55 - Labs Result Diagrams: 08/22/17 07:50 08/22/17 07:50 Labs: Laboratory Results - last 24 hr 08/21/17 08/21/17 08/21/17 21:32 21:32 21:32 WBC 22.3 H D RBC 3.25 L Hgb 9.3 L Hct 28.8 L MCV 88.6 MCH 28.6 MCHC 32.3 RDW 16.9 H Plt Count 359 MPV 9.4 Gran % 80.3 H Lymph % (Auto) 10.8 L Simpson % (Auto) 8.5 H Eos % (Auto) 0.0 L Baso % (Auto) 0.4 Gran # 17.92 H Lymph # (Auto) 2.4 Simpson # (Auto) 1.9 H Eos # (Auto) 0.0 Baso # (Auto) 0.08 PT 12.6 H INR 1.10 H APTT 24.1 L pO2 61 H VBG pH 7.30 L VBG pCO2 39.0 L VBG HCO3 19.2 L VBG Total CO2 20.4 L VBG O2 Sat (Calc) 93.7 H VBG Base Excess -6.7 L VBG Potassium 5.1 Sodium 131.0 L Chloride 100.0 Glucose 271 H Lactate 3.1 H FiO2 21.0 Potassium Carbon Dioxide Anion Gap BUN Creatinine Est GFR ( Amer) Est GFR (Non-Af Amer) POC Glucose (mg/dL) Random Glucose Calcium Total Bilirubin AST ALT Alkaline Phosphatase Lactate Dehydrogenase Total Creatine Kinase Troponin I Total Protein Albumin Globulin Albumin/Globulin Ratio Venous Blood Potassium 5.1 Urine Color Urine Appearance Urine pH Ur Specific [place] Urine Protein Urine Glucose (UA) Urine Ketones Urine Blood Urine Nitrate Urine Bilirubin Urine Urobilinogen Ur Leukocyte Esterase Urine RBC Urine WBC Ur Epithelial Cells Urine Bacteria 08/21/17 08/22/17 08/22/17 21:32 00:24 01:10 WBC RBC Hgb Hct MCV MCH MCHC RDW Plt Count MPV Gran % Lymph % (Auto) Simpson % (Auto) Eos % (Auto) Baso % (Auto) Gran # Lymph # (Auto) Simpson # (Auto) Eos # (Auto) Baso # (Auto) PT INR APTT pO2 121 H VBG pH 7.30 L VBG pCO2 41.0 VBG HCO3 20.2 L VBG Total CO2 21.5 L VBG O2 Sat (Calc) 99.3 H VBG Base Excess -5.9 L VBG Potassium 5.0 Sodium 132 133.0 Chloride 97 L 103.0 Glucose 192 H Lactate 1.9 FiO2 21.0 Potassium 5.1 H Carbon Dioxide 17 L Anion Gap 23 H BUN 36 H Creatinine 2.1 H Est GFR ( Amer) 29 Est GFR (Non-Af Amer) 24 POC Glucose (mg/dL) Random Glucose 252 H Calcium 9.4 Total Bilirubin 0.7 AST 26 ALT 25 Alkaline Phosphatase 115 Lactate Dehydrogenase 831 H Total Creatine Kinase 38 Troponin I < 0.01 Total Protein 6.9 Albumin 3.7 Globulin 3.3 Albumin/Globulin Ratio 1.1 Venous Blood Potassium 5.0 Urine Color Yellow Urine Appearance Sl cloudy Urine pH 6.0 Ur Specific [place] >= 1.030 Urine Protein 100 H Urine Glucose (UA) Negative Urine Ketones 15 H Urine Blood Trace-intact H Urine Nitrate Negative Urine Bilirubin Small H Urine Urobilinogen 1.0 H Ur Leukocyte Esterase Trace H Urine RBC 1 - 3 Urine WBC 2 - 5 Ur Epithelial Cells 1 - 3 Urine Bacteria Mod 08/22/17 02:05 WBC RBC Hgb Hct MCV MCH MCHC RDW Plt Count MPV Gran % Lymph % (Auto) Simpson % (Auto) Eos % (Auto) Baso % (Auto) Gran # Lymph # (Auto) Simpson # (Auto) Eos # (Auto) Baso # (Auto) PT INR APTT pO2 VBG pH VBG pCO2 VBG HCO3 VBG Total CO2 VBG O2 Sat (Calc) VBG Base Excess VBG Potassium Sodium Chloride Glucose Lactate FiO2 Potassium Carbon Dioxide Anion Gap BUN Creatinine Est GFR ( Amer) Est GFR (Non-Af Amer) POC Glucose (mg/dL) 187 H Random Glucose Calcium Total Bilirubin AST ALT Alkaline Phosphatase Lactate Dehydrogenase Total Creatine Kinase Troponin I Total Protein Albumin Globulin Albumin/Globulin Ratio Venous Blood Potassium Urine Color Urine Appearance Urine pH Ur Specific [place] Urine Protein Urine Glucose (UA) Urine Ketones Urine Blood Urine Nitrate Urine Bilirubin Urine Urobilinogen Ur Leukocyte Esterase Urine RBC Urine WBC Ur Epithelial Cells Urine Bacteria Assessment & Plan - Assessment and Plan (Free Text) Assessment: 62 F with PMH that incudes ovarian cancer on carboplatin/taxol, s/p debulking surgery 2 months ago who presents for nausea/vomiting and abdominal pain; found to have 3 new pulmonary nodules; New peritoneal carcinomatosis; multiple complex masses in the abdomen and pelvis Plan: -NPO -IV fluids -IV antibiotics -HR control -Recommend IR and Urology consults -Analgesics/Anti-emetics -Strict I's & O's -Serial abdominal exams -Recommend Palliative care consult -Further recommendations as per Dr. Sabino Sullivan PGY1 - Date & Time Date: 08/22/17 Time: 02:00
[2017-08-22] MEDS ORDERED: Ipratropium 0.02% Inhal Soln (0.5 mg/2.5 ml) UD IH PRN (03:30)
[2017-08-22] MEDS ORDERED: Levalbuterol 1.25 MG/3 ML Inhal Soln UD IH PRN (03:30)
[2017-08-22 04:10] LABS: CALCIUM 8.8 mg/dL (8.4-10.5)
[2017-08-22] MEDS: Sodium Chloride 0.9% 1,000 ML IV SCH (04:44)
[2017-08-22 05:00] LABS: ARTERIAL BLOOD GAS HCO3 15.4 mmol/L (21-28); ARTERIAL BLOOD GAS O2 SAT 99.2 % (95-98); ARTERIAL BLOOD GAS PCO2 26 mm/Hg (35-45); ARTERIAL BLOOD GAS PH 7.38 (7.35-7.45); ARTERIAL BLOOD GAS TCO2 16.2 mmol.L (22-28)
[2017-08-22] MEDS ORDERED: Dextrose 50% SYRINGE Inj (50 ml) IV ONE (05:00)
[2017-08-22] MEDS ORDERED: Insulin Regular 1 UNITS/0.01 ML ML IV ONE (05:01)
--- NOTE | 2017-08-22 05:47 | PCM.SEPTIC ---
Sepsis Progress Note - Reassessment Type Date of Evaluation: 08/22/17 Time of Evaluation: 03:30 Reassessment Type: Non-invasive reassessment - Non Invasive Reassessment Were the most recent vital sign reviewed: Yes Vital Sign (Latest): Temp Pulse Resp BP Pulse Ox 97.7 F 132 H 18 137/87 100 08/22/17 05:11 08/22/17 05:11 08/22/17 05:11 08/22/17 05:11 08/22/17 05:11 Cardiovascular: Yes: Tachycardia Respiratory: Yes: Decreased Breath Sounds Capillary Refill: Normal (Less than 2 sec) Pulses: Normal Radial, Normal Dorsalis Pedis, Normal Posterior Tibialis Skin: Warm - Invasive Reassessment (complete 2 of 4) Was a Central Venous Pressure Measurement obtained within 6 Hours after the presentation of septic shock: No Was a central venous oxygen measurement obtained within 6 hours after the presentation of septic shock: No Was a bedside cardiovascular ultrasound performed within 6 hours after the presentation of septic shock: No Was a passive leg raise performed or was a fluid challenge performed within 6 hrs of the initial fluid bolus: Yes Fluid Challenge performed: Yes
[2017-08-22] MEDS ORDERED: Magnesium 2 gm/50 ml NS 2 GM/50 ML BAG IVPB ONE (06:24)
[2017-08-22] MEDS: metroNIDAZOLE IV 500 mg/100 ml 500 MG/100 ML BAG IVPB SCH ×3 (07:39→22:04)
[2017-08-22 08:12] LABS: HEMOGLOBIN 8.6 g/dL (12.0-16.0); MEAN CELL VOLUME 88.6 fl (80.0-105.0); MEAN CORPUSCULAR HEMOGLOBIN 28.9 pg (25.0-35.0); MEAN CORPUSCULAR HGB CONC 32.6 g/dl (31.0-37.0); MEAN PLATELET VOLUME 9.2 fl (7.0-11.0); PLATELET COUNT 361 10^3/uL (120.0-450.0); RBC 2.98 10^6/uL (3.5-6.1); RED CELL DISTRIBUTION WIDTH 17.2 % (11.5-14.5)
[2017-08-22 08:14] LABS: ALB/GLOB RATIO 1.1 (1.1-1.8); ALBUMIN 3.5 g/dL (3.0-4.8); ALT/SGPT 35 U/L (7-56); AST/SGOT 68 U/L (14-36); BLOOD UREA NITROGEN 38 mg/dL (7-21); CALCIUM 8.7 mg/dL (8.4-10.5); GFR AFRICAN-AMERICAN 26; GFR NON-AFRICAN AMERICAN 21
[2017-08-22 08:19] LABS: TROPONIN I < 0.01 ng/mL; WHITE BLOOD COUNT 25.5 10^3/ul (4.5-11.0)
[2017-08-22 08:20] VITALS: BMI 36.4
[2017-08-22] MEDS: Insulin Reg-MEDIUM-Coverage SC SCH ×3 (08:23→17:20)
[2017-08-22 09:49] LABS: VENOUS BLOOD GAS BASE EXCESS -9.4 mmol/L (0.0-2.0); VENOUS BLOOD GAS PO2 52 mm/Hg (30-55); VENOUS BLOOD PH 7.28 (7.32-7.43)
[2017-08-22] MEDS: Morphine 2 mg/ml ISec IVP PRN ×2 (09:55→17:19)
[2017-08-22] MEDS: Meropenem IV 1 gm in NS 50 ML IVPB SCH ×2 (10:39→22:04)
[2017-08-22] MEDS: Linezolid 600 mg in D5W 300 ml 600 MG/300 ML BAG IVPB SCH ×2 (10:40→23:52)
--- NOTE | 2017-08-22 10:46 | RAD ---
HISTORY: Sepsis. COMPARISON: 08/12/2017 FINDINGS: LUNGS: No active pulmonary disease. PLEURA: No significant pleural effusion identified, no pneumothorax apparent. CARDIOVASCULAR: No radiographic findings to suggest acute or significant cardiovascular disease. PICC line in satisfactory position OSSEOUS STRUCTURES: No significant abnormalities. VISUALIZED UPPER ABDOMEN: Normal. OTHER FINDINGS: None. IMPRESSION: No active disease. No significant interval change compared to the prior examination(s).
[2017-08-22] MEDS ORDERED: Darbepoetin Alfa 100 mcg/ml Inj SC ONE (10:54)
--- NOTE | 2017-08-22 11:19 | CP.PCM.PCO ---
Assessment & Plan - Assessment and Plan (Free Text) Assessment: patient underwent extensive debulking surgery at [facility] with Gynec Onc. 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 Extensive mets in abdomen. She had complicated course post-op with pleural effusions, ascites, respiratory distress. Renal functions improved to normal post -op. aranesp 100 mcgm today, sepsis management. Blood products as needed.
[2017-08-22] MEDS ORDERED: Sod Polystyrene Sulf 15 gm/60 ml Susp PR ONE (11:21)
[2017-08-22] MEDS: Simethicone 80 mg Chewtab PO SCH ×3 (13:21→22:04)
[2017-08-22] MEDS: Metoprolol 1 mg/ml Inj IVP PRN ×2 (13:22→18:29)
[2017-08-22 13:23] LABS: VENOUS BLOOD GAS BASE EXCESS -9.2 mmol/L (0.0-2.0); VENOUS BLOOD GAS PO2 32 mm/Hg (30-55)
--- NOTE | 2017-08-22 16:58 | CARD ---
APPROVED REPORT EKG Measurement Heart [id number] <Conclusion> Sinus tachycardia Minimal voltage criteria for LVH, may be normal variant Borderline ECG
--- NOTE | 2017-08-22 17:04 | CARD ---
APPROVED REPORT EKG Measurement Heart [id number] <Conclusion> Sinus tachycardia Minimal voltage criteria for LVH, may be normal variant Borderline ECG
--- NOTE | 2017-08-22 21:28 | CON ---
DATE: 08/22/2017 The patient is in bed. Seen early this morning in room 270 bed 2. CHIEF COMPLAINT: Abdominal pain times several days. HISTORY OF PRESENT ILLNESS: This is a 59-year-old female with diabetes mellitus; hypertension; obesity with a BMI of 37; ovarian cancer diagnosed recently, had chemotherapy; history of left eye blindness; coronary artery disease; anemia; history of Meniere disease and gallstones, who was admitted with the diagnosis of abdominal pain and the patient states that she has had nausea and vomiting and abdominal pain. There has been low-grade fevers. No chills. There is mild shortness of breath, slight cough nonproductive. No chest pain and no headaches and no rash, no knee joint pain. REVIEW OF SYSTEMS: The 12-point review of systems performed. PAST MEDICAL HISTORY: Significant for ovarian cancer with status post chemotherapy; diabetes mellitus; hypertension; obesity with BMI of 37; coronary artery disease; left eye blindness; anemia; Meniere disease and gallstones. PAST SURGICAL HISTORY: Significant for debulking surgery and hysterectomy. ALLERGIES: THE PATIENT IS ALLERGIC TO PENICILLIN, SHE DEVELOPS A RASH, SHE STATES AND SHE IS ALSO ALLERGIC TO ACETAMINOPHEN, ASPIRIN, OXYCODONE. MEDICATIONS AT HOME: Include the patient to be on Zofran, insulin, hydromorphone, Pepcid. PHYSICAL EXAMINATION: GENERAL: On exam, the patient is in bed, appearing weak. VITAL SIGNS: Temperature of 97, heart rate of 130, blood pressure is 128/80 and respiratory rate of 22. The patient is saturating at 100% nasal cannula. HEENT: Examination is unremarkable. NECK: Supple. LUNGS: Have decreased breath sounds. HEART: Normal S1, S2. ABDOMEN: Soft, nontender. Mild tenderness. No rebound or guarding. DATA: Laboratory examination reveals the patient's white count of 22,300, hemoglobin of 9, platelets of 359, 80% granulocytosis. Coagulation is noted and chemistries reveals a BUN of 36, creatinine of 2.1. Random glucose is 210, magnesium is 1.5. Urinalysis is noted. Urine protein is 100, bilirubin is small, trace leukocyte esterase, 2 to 5 wbc's. CAT scan is reviewed. The patient had a CAT scan, it shows a questionable collection and a small bowel obstruction. Chest x-ray report is not available. The patient had an EKG, that report is not available. 's consultation is appreciated. ASSESSMENT AND PLAN: This is a 62-year-old female with diabetes; hypertension; obesity, body mass index of 37; ovarian cancer, status post chemotherapy; coronary artery disease; left eye blindness; anemia admitted with tachycardia, nausea, vomiting, leukocytosis, dyspnea, PENICILLIN ALLERGY with CT findings of small bowel obstruction and pulmonary nodules, now in intra-abdominal collection and creatinine has changed from 0.6 to 2.1. Severe sepsis with small bowel obstruction and possible intra-abdominal collection in a patient with ovarian cancer, status post abdominal surgery, now with pulmonary nodules and acute kidney injury. Creatinine has changed from 0.6 to 2.1 with metabolic acidosis with increased anion gap. We will treat the patient with Zyvox and meropenem and pending barnes culture results and overall response, should consider a hospice setting for this patient who has ovarian cancer with pulmonary nodules and supportive care. Jorge Lee MD
[2017-08-22 22:03] LABS: HEMOGLOBIN 8.2 g/dL (12.0-16.0); MEAN CELL VOLUME 88.4 fl (80.0-105.0); MEAN CORPUSCULAR HEMOGLOBIN 28.9 pg (25.0-35.0); MEAN CORPUSCULAR HGB CONC 32.7 g/dl (31.0-37.0); MEAN PLATELET VOLUME 9.1 fl (7.0-11.0); RBC 2.84 10^6/uL (3.5-6.1); RED CELL DISTRIBUTION WIDTH 17.5 % (11.5-14.5)
[2017-08-22 22:06] LABS: WHITE BLOOD COUNT 32.9 10^3/ul (4.5-11.0)
[2017-08-22 22:07] LABS: VENOUS BLOOD GAS BASE EXCESS -9.2 mmol/L (0.0-2.0); VENOUS BLOOD GAS PO2 35 mm/Hg (30-55)
[2017-08-22 22:32] LABS: TROPONIN I < 0.01 ng/mL
[2017-08-22 22:36] LABS: ALB/GLOB RATIO 1.1 (1.1-1.8); ALBUMIN 3.5 g/dL (3.0-4.8); ALT/SGPT 65 U/L (7-56); AST/SGOT 132 U/L (14-36); BLOOD UREA NITROGEN 47 mg/dL (7-21); CALCIUM 8.4 mg/dL (8.4-10.5); GFR AFRICAN-AMERICAN 19; GFR NON-AFRICAN AMERICAN 16
[2017-08-22] MEDS ORDERED: Albuterol 0.083% Inhal Sol (2.5 mg/3 mL) UD INH STA (22:43)
[2017-08-22] MEDS ORDERED: Dextrose 50% SYRINGE Inj (50 ml) IVP ONE (22:43)
[2017-08-22] MEDS ORDERED: Insulin Regular 1 UNITS/0.01 ML ML SC ONE (22:44)
[2017-08-22] MEDS ORDERED: Sodium Chloride 0.9% 1,000 ML IV STA (22:49)
--- NOTE | 2017-08-22 23:21 | HP ---
HISTORY OF PRESENT ILLNESS: Patient is 62 years old, states she was in a rehab in [place]. She was not feeling well, developed abdominal pain, had couple of episode of nausea. Patient is not a very good historian. However; she was transferred from there for further evaluation. She states she has surgery done almost a month ago for ovarian cancer. Has been on chemotherapy. She had debulking surgery done a month or two ago. Complained of decreased appetite, complained of vomiting. Patient states she has been increasingly getting weak, unable to participate in therapy, and yesterday, she became diaphoretic and almost collapsed. so she was brought to emergency room. PAST MEDICAL HISTORY: Significant for; 1. Metastatic ovarian cancer with large pelvic mass. 2. Hypertension. 3. Meniere disease. 4. Left eye blindness soon after . She states she was in incubator, leading to left eye blindness. 5. History of cholelithiasis. 6. Sgg-dstuovp-cpmyymxzh diabetes. SURGICAL HISTORY: Significant for 1. Debulking surgery. 2. Hysterectomy 2 months ago in [facility]. 3. History of rotator cuff tear in 2009. SOCIAL HISTORY: She lives by herself. Denies smoking, drinking, or alcohol use. ALLERGIES: SHE IS ALLERGIC TO PENICILLIN, ASPIRIN, AND PERCOCET. MEDICATION: In the prison, she was on simethicone, ramipril 10 mg daily, Zofran 4 mg every 4 hours, Duragesic patch, famotidine, and albuterol. REVIEW OF SYSTEMS: Significant for nausea, abdominal discomfort, and feeling weak. PHYSICAL EXAMINATION: GENERAL: She is awake and alert. She is legally blind in the left eye. VITAL SIGNS: She is afebrile, pulse 129, respirations 18, and blood pressure 128/80. LUNGS: Bilateral diffusely decreased breath sounds. HEART: S1 and S2 audible. ABDOMEN: Soft, but distended. She has dull aching throughout her abdomen, but no rebound or guarding. EXTREMITIES: Bilateral legs, no edema. LABORATORY DATA: WBC 25.5, hemoglobin 8.6, hematocrit 26.4, and platelets of 361. Chemistry: Sodium 135, potassium 5.6, chloride 102, CO2 of 17. BUN 38, creatinine 2.3. Blood sugar of 227. Urinalysis shows small bilirubin, trace leukocyte. She had CT scan of the abdomen and pelvis done that shows mild progression of her disease with pulmonary nodules suspicious for mets, interval development of peritoneal carcinomatosis, multiple complex masses in the abdomen and pelvis consistent with metastatic deposits with loculated fluids. ASSESSMENT AND PLAN: 1. Metastatic ovarian cancer. 2. Acute renal failure. 3. Hyperkalemia. 4. Leukocytosis, rule out . 5. Bbcbq-jc-inpschu renal failure. 6. Wux-rvslrlk-kcccqwlew diabetes. PLAN: Currently, patient is n.p.o. She is on IV fluid. Analgesic as needed. She is on DVT prophylaxis. We will monitor her blood sugar, give her a dose of Kayexalate. Follow up electrolytes in a.m. Zhang Roblero MD
--- NOTE | 2017-08-23 00:06 | CP.PCM.PCO ---
Physician Communication Note - Physician Communication Note Physician Communication Note: Discussed end of life decisions with patient Addendum Addendum: 08/23/17 00:03 Patient seen and examined at bedside after nurse reported multiple episodes of vomiting and worsened abdominal pain. Inserted an NGT at bedside with 300cc's of brown, feculent appearing fluid output immediately, patient tolerated the procedure well. Patient has low urine output and worsened renal function on lab work and worsening leukocytosis with persistent tachycardia and mild hypotension. Discussed end of life wishes with patient with nurse Blair at bedside and she stated that she does not wish to have CPR or to be intubated for cardiac or respiratory failure. Stated her medical surrogate decision maker is Janine Maloney, a friend. Living will in the chart confirms Ms. Maloney as medical decision maker. Called Ms. Maloney at her home and confirmed over the phone that patient is DNR/DNI. Filled out a DNR/DNI consent form in her chart which Ms. Maloney states she will sign in the AM. Spoke to patient again with nurse present as witness and patient confirmed DNR/DNI status
[2017-08-23] MEDS ORDERED: HYDROmorphone 0.5 mg/0.5 ml ISec IVP PRN (00:32)
[2017-08-23] MEDS: Sodium Chloride 0.9% 1,000 ML IV SCH (00:58)
[2017-08-23] MEDS: Insulin Reg-MEDIUM-Coverage SC SCH ×4 (00:58→17:49)
[2017-08-23] MEDS ORDERED: Sodium Chloride 0.9% 1,000 ML IV SCH (02:53)
[2017-08-23] MEDS: metroNIDAZOLE IV 500 mg/100 ml 500 MG/100 ML BAG IVPB SCH ×3 (06:00→22:17)
[2017-08-23 07:17] LABS: VENOUS BLOOD GAS PO2 54 mm/Hg (30-55); VENOUS BLOOD PH 7.28 (7.32-7.43)
[2017-08-23 07:24] LABS: CALCIUM 8.2 mg/dL (8.4-10.5)
[2017-08-23 07:43] LABS: BASO # 0.03 K/mm3 (0.0-2.0); BASO % 0.1 % (0.0-3.0); GRAN # 24.57 (1.4-6.5); GRAN % 83.4 % (50.0-68.0); HEMOGLOBIN 7.1 g/dL (12.0-16.0); LYMPH # 1.1 (1.2-3.4); LYMPH % 3.8 % (22.0-35.0); MEAN CELL VOLUME 88.3 fl (80.0-105.0); MEAN CORPUSCULAR HEMOGLOBIN 28.6 pg (25.0-35.0); MEAN CORPUSCULAR HGB CONC 32.4 g/dl (31.0-37.0); MEAN PLATELET VOLUME 9.3 fl (7.0-11.0); MONO # 3.8 (0.1-0.6); MONO % 12.7 % (1.0-6.0); PLATELET COUNT 252 10^3/uL (120.0-450.0); RBC 2.48 10^6/uL (3.5-6.1); RED CELL DISTRIBUTION WIDTH 17.3 % (11.5-14.5)
[2017-08-23 08:08] LABS: WHITE BLOOD COUNT 29.5 10^3/ul (4.5-11.0)
[2017-08-23 09:10] LABS: LYMPHOCYTE 3 % (22.0-35.0); MONOCYTE 10 % (1.0-6.0); NEUTROPHIL 87 % (50.0-70.0)
--- NOTE | 2017-08-23 09:10 | CON ---
DATE: 08/23/2017 HISTORY OF PRESENT ILLNESS: Ms. Arshad is a 62-year-old female well known to me from office. She had recent debulking surgery at [facility] with . She had extensive disease in the abdomen in retroperitoneal area with large ovarian mass occupying the entire pelvis. Pathology is consistent with carcinosarcoma. She was given one cycle of chemotherapy with carboplatin and Taxol. She had a complicated postoperative course with massive ascites, pleural effusions, congestive cardiac failure, acute renal failure. She recovered fully postop and organ functions were normal within two weeks after surgery. She presented to the hospital with acute renal failure, nausea, vomiting. Complaining of abdominal pain. She vomited a few times in the night. She is on NG tube with suction. NG drainage is serosanguineous. She was on fentanyl patch at the rehab and Dilaudid p.r.n. PAST MEDICAL HISTORY: Hypertension, blindness in left eye, Meniere disease, diabetes mellitus type 2. PAST SURGICAL HISTORY: Orthopedic surgery, extensive debulking surgery for malignant ovarian cancer. FAMILY HISTORY: Noncontributory. PERSONAL HISTORY: Never smoked. No history of alcohol abuse. ALLERGIES: PENICILLIN, TYLENOL, ASPIRIN, OXYCODONE. HOME MEDICATIONS: Altace, Tylenol, albuterol, Pepcid, Dilaudid p.r.n., fentanyl patch, Zofran. REVIEW OF SYSTEMS: As per HPI, rest of 12-point review of systems is reviewed and negative. In addition, she is delusional, faint, "the nurse trying to kill me." PHYSICAL EXAMINATION: GENERAL: Comfortable in bed, in no acute distress. VITAL SIGNS: Temperature 98.7, heart rate 100 per minute, respiratory rate 20 per minute, blood pressure 140/70, pulse ox 100% on room air. HEENT: PERRLA, positive. NECK: No lymphadenopathy. CHEST: Air entry present and equal bilateral. Crackles at bases. ABDOMEN: Distended, dense, nontender. EXTREMITIES: Bilateral edema. NEUROLOGIC: Delusional. No focal sensorimotor deficit. SKIN: Pallor positive. PSYCHIATRIC: Alert, oriented, confused. DATA: CAT scan of the abdomen showed multiple masses with fluid filled cavities, large collection in the pelvis, peritoneal carcinomatosis, pulmonary nodules. Laboratory data shows white count 32,000, hemoglobin 8.2, hematocrit 25.1, platelet count 283. Sodium 133, potassium 5.5, creatinine 3.3, AST 171, ALT 91. Cultures: Blood culture, no growth so far. Urine culture pending. ASSESSMENT AND PLAN: 1. Carcinosarcoma of the ovary. 2. Extensive metastatic disease in the abdomen. 3. Ascites. 4. Acute renal failure. 5. Severe anemia. 6. Sepsis. PLAN: Stage IV carcinosarcoma of the ovary, extensive debulking surgery a month ago. Status post one cycle of chemotherapy with carboplatin/Taxol. Chemotherapy was given prior to final pathology. She had second opinion on the pathology, which was consistent with carcinosarcoma of the abdomen. Currently septic, on IV antibiotics as per ID, meropenem, Zyvox and Flagyl, continue that. Acute renal failure, likely related to extensive metastatic disease in the abdomen, obstructive in nature or per se, acute renal failure likely prerenal. She is getting IV fluids, normal saline at 125 mL in hour. I would recommend two units of blood transfusion for hemoglobin of 8.2. Pain control with Dilaudid p.r.n. and discontinue the fentanyl patch. She is anuric. Management as per Dr. Aponte. Prognosis is poor. We will contact the healthcare proxy and update the status. Amelie Serna MD
[2017-08-23 09:11] LABS: ANISOCYTOSIS SLIGHT; MICROCYTOSIS 1+
[2017-08-23] MEDS: Simethicone 80 mg Chewtab PO SCH ×4 (09:11→22:15)
[2017-08-23] MEDS: Meropenem IV 1 gm in NS 50 ML IVPB SCH ×2 (09:13→22:16)
[2017-08-23] MEDS: Linezolid 600 mg in D5W 300 ml 600 MG/300 ML BAG IVPB SCH ×2 (09:14→22:18)
[2017-08-23] MEDS ORDERED: Dextrose 5%/0.9% NS 1,000 ML IV SCH (09:15)
[2017-08-23 09:17] LABS: HYPOCHROMIA SLIGHT; LARGE PLATELETS PRESENT; PLATELET ESTIMATE NORMAL (NORMAL)
--- NOTE | 2017-08-23 10:25 | RAD ---
HISTORY: SBO, s/p NGT placement COMPARISON: No prior. FINDINGS: BOWEL: Normal. No obstruction. No free air. Nasogastric tube coiled in a decompressed stomach. 08/21/2017 CT abdomen and pelvis BONES: Normal. OTHER FINDINGS: None. IMPRESSION: Satisfactory position of recently placed nasogastric tube. No evidence of obstruction or free air on this single AP portable view at 00:08
--- NOTE | 2017-08-23 10:32 | CP.PCM.CON ---
History of Present Illness - History of Present Illness History of Present Illness: Palliative consult requested by Dr Aris Aponte Reason: Goals of care 62 year old female with history of ovarian cancer s/p debulking surgery one month ago, currently receiving chemotherapy who was sent on 08/22/17 from [facility] with weakness, nausea, vomiting, abdominal discomfort, decreased appetite. She also had an episode of diaphoresis and almost collapsed. CT of abdomen showed marked disease progression, 3 new pulmonary nodules suspicious for metastasis, peritoneal carcinomatosis, multiple complex masses in the abdomen and pelvis consistent with metastatic deposits, loculated fluid collection, possible early developing small bowel obstruction. PMH: metastatic ovarian cancer, DM , HTN, cholelithiasis, left eye blindness, small bowel obstruction, Meniere's disease PSH: hysterectomy with debulking surgery, rotator cuff tare Social History: Never smoker, no alcohol or drug use. , lives by herself. Family History: Non contributory. Advance Care Planning: She does not have an Advanced Directive. She has appointed her friend, Janine Maloney as her health care surrogate. Review of Systems: As per HPI, 12 point review otherwise negative. Labs:Wbc 29.5,Hgb 7.1, Plt 252,NA 133, K5.5, BUN 49, Creat 3.3, glucose 303, AST 174, ALT 91. Vital Signs:T 97.8, P101, BP 110/70,R 19, O2 sat 96 on room air Past Patient History - Infectious Disease Hx of Infectious Diseases: None - Past Social History Smoking Status: Never Smoked - CARDIAC Hx Cardiac Disorders: Yes Hx Hypertension: Yes - PULMONARY Hx Respiratory Disorders: No - NEUROLOGICAL Hx Neurological Disorder: No - HEENT Hx HEENT Problems: Yes Hx Blind: Yes (left eye) Other/Comment: Meniere's Disease - RENAL Hx Chronic Kidney Disease: No - ENDOCRINE/METABOLIC Hx Diabetes Mellitus Type 2: Yes - HEMATOLOGICAL/ONCOLOGICAL Hx Blood Disorders: No - INTEGUMENTARY Hx Dermatological Problems: No - MUSCULOSKELETAL/RHEUMATOLOGICAL Hx Falls: No - GASTROINTESTINAL Hx Gastrointestinal Disorders: Yes Other/Comment: Peritonitis - GENITOURINARY/GYNECOLOGICAL Hx Genitourinary Disorders: No - PSYCHIATRIC Hx Psychophysiologic Disorder: No Hx Substance Use: No - SURGICAL HISTORY Hx Orthopedic Surgery: Yes (right rotator cuff) Other/Comment: pelvic mass removed lap. - ANESTHESIA Hx Anesthesia: Yes Hx Anesthesia Reactions: No Hx Malignant Hyperthermia: No Meds Allergies/Adverse Reactions: Allergies Allergy/AdvReac Type Severity Reaction Status Date / Time Penicillins Allergy URTICARIA Verified 08/12/17 11:43 acetaminophen [From Percocet] AdvReac DIZZINESS Verified 08/12/17 11:43 aspirin AdvReac PAIN Verified 08/12/17 11:43 oxycodone AdvReac DIZZINESS Verified 08/12/17 11:43 - Medications Medications: Current Medications Heparin Sodium (Porcine) (Heparin) 5,000 units SC Q8 SAM PRN Reason: Protocol Last Admin: 08/23/17 06:00 Dose: 5,000 units Hydromorphone HCl (Dilaudid) 0.25 mg IVP Q3H PRN PRN Reason: Pain, severe (8-10) Metronidazole (Flagyl) 500 mg in 100 mls @ 100 mls/hr IVPB Q8 SAM PRN Reason: Protocol Last Admin: 08/23/17 06:00 Dose: 100 mls/hr Meropenem (Merrem Iv 1 Gm Premix) 50 mls @ 100 mls/hr IVPB Q12 SAM PRN Reason: Protocol Stop: 08/31/17 10:01 Last Admin: 08/23/17 09:13 Dose: 100 mls/hr Linezolid (Zyvox 600mg/300ml D5w) 600 mg in 300 mls @ 200 mls/hr IVPB Q12 SAM PRN Reason: Protocol Stop: 08/31/17 10:16 Last Admin: 08/23/17 09:14 Dose: 200 mls/hr Dextrose/Sodium Chloride (Dextrose 5%/0.9% Ns 1000 Ml) 1,000 mls @ 75 mls/hr IV .[id number] [facility] Last Admin: 08/23/17 09:51 Dose: 75 mls/hr Insulin Human Regular (Humulin R Med) 0 units SC Q6 SAM PRN Reason: Protocol Last Admin: 08/23/17 05:59 Dose: 5 units Insulin Human Regular (Humulin R) 5 units SC BID [facility] Ipratropium [place] (Atrovent) 0.5 mg IH Q3 PRN PRN Reason: Shortness of Breath Last Admin: 08/23/17 00:18 Dose: 0.5 mg Levalbuterol HCl (Xopenex) 1.25 mg IH Q3 PRN PRN Reason: Shortness of Breath Last Admin: 08/23/17 00:18 Dose: 1.25 mg Metoprolol Tartrate (Lopressor) 5 mg IVP Q6H PRN PRN Reason: heart rate >100 Last Admin: 08/22/17 18:29 Dose: 5 mg Ondansetron HCl (Zofran Inj) 8 mg IVP Q8H [facility] Last Admin: 08/23/17 08:34 Dose: 8 mg Simethicone (Mylicon Chew Tab) 80 mg PO QID [facility] Last Admin: 08/23/17 09:11 Dose: Not Given Physical Exam - Constitutional Appears: Chronically Ill - Head Exam Head Exam: NORMAL INSPECTION - Eye Exam Additional comments: blind left eye - ENT Exam ENT Exam: Mucous Membranes Moist, Normal Oropharynx - Neck Exam Neck exam: Positive for: Normal Inspection - Respiratory Exam Respiratory Exam: Decreased Breath Sounds, NORMAL BREATHING PATTERN - Cardiovascular Exam Cardiovascular Exam: REGULAR RHYTHM, +S1, +S2 - GI/Abdominal Exam GI & Abdominal Exam: Distended Additional comments: diffuse abdominal tenderness., NG tube draining green fluid - Extremities Exam Extremities exam: Positive for: pedal edema, pedal pulses present - Back Exam Back exam: NORMAL INSPECTION - Neurological Exam Neurological exam: Alert - Psychiatric Exam Psychiatric exam: Anxious - Skin Skin Exam: Dry, Pallor - Additional Findings Additional findings: palliative performance scale rating 30% Results - Vital Signs Recent Vital Signs: Last Vital Signs Temp 97.8 F 08/23/17 06:00 Pulse 107 H 08/23/17 06:00 Resp 19 08/23/17 06:00 BP 107/64 08/23/17 06:00 Pulse Ox 96 08/23/17 06:00 - Labs Result Diagrams: 08/23/17 06:20 08/23/17 06:20 Labs: Laboratory Results - last 24 hr 08/22/17 08/22/17 08/22/17 07:50 11:24 13:13 WBC RBC Hgb Hct MCV MCH MCHC RDW Plt Count MPV Gran % Lymph % (Auto) [place] % (Auto) Eos % (Auto) Baso % (Auto) Gran # Lymph # (Auto) [place] # (Auto) Eos # (Auto) Baso # (Auto) Neutrophils % (Manual) Lymphocytes % (Manual) Monocytes % (Manual) Platelet Evaluation Large Platelets Hypochromasia Anisocytosis (manual) Microcytosis (manual) pO2 32 VBG pH 7.30 L VBG pCO2 33.0 L VBG HCO3 16.2 L VBG Total CO2 17.2 L VBG O2 Sat (Calc) 66.8 H VBG Base Excess -9.2 L VBG Potassium 5.6 H Sodium 130.0 L Chloride 102.0 Glucose 326 H Lactate 3.1 H FiO2 21.0 Potassium Carbon Dioxide Anion Gap BUN Creatinine Est GFR ( Amer) Est GFR (Non-Af Amer) POC Glucose (mg/dL) 227 H Random Glucose Hemoglobin A1c 6.0 Calcium Total Bilirubin AST ALT Alkaline Phosphatase Troponin I Total Protein Albumin Globulin Albumin/Globulin Ratio Venous Blood Potassium 5.6 H 08/22/17 08/22/17 08/22/17 14:24 22:00 22:00 WBC 32.9 H* D RBC 2.84 L Hgb 8.2 L Hct 25.1 L MCV 88.4 MCH 28.9 MCHC 32.7 RDW 17.5 H Plt Count 283 MPV 9.1 Gran % Lymph % (Auto) [place] % (Auto) Eos % (Auto) Baso % (Auto) Gran # Lymph # (Auto) [place] # (Auto) Eos # (Auto) Baso # (Auto) Neutrophils % (Manual) Lymphocytes % (Manual) Monocytes % (Manual) Platelet Evaluation Large Platelets Hypochromasia Anisocytosis (manual) Microcytosis (manual) pO2 35 VBG pH 7.30 L VBG pCO2 33.0 L VBG HCO3 16.2 L VBG Total CO2 17.2 L VBG O2 Sat (Calc) 70.5 H VBG Base Excess -9.2 L VBG Potassium 5.8 H Sodium 129.0 L Chloride 101.0 Glucose 337 H Lactate 3.6 H FiO2 21.0 Potassium Carbon Dioxide Anion Gap BUN Creatinine Est GFR ( Amer) Est GFR (Non-Af Amer) POC Glucose (mg/dL) 266 H Random Glucose Hemoglobin A1c Calcium Total Bilirubin AST ALT Alkaline Phosphatase Troponin I Total Protein Albumin Globulin Albumin/Globulin Ratio Venous Blood Potassium 5.8 H 08/22/17 08/23/17 08/23/17 22:00 05:54 06:20 WBC 29.5 H* RBC 2.48 L Hgb 7.1 L Hct 21.9 L MCV 88.3 MCH 28.6 MCHC 32.4 RDW 17.3 H Plt Count 252 MPV 9.3 Gran % 83.4 H Lymph % (Auto) 3.8 L [place] % (Auto) 12.7 H Eos % (Auto) 0.0 L Baso % (Auto) 0.1 Gran # 24.57 H Lymph # (Auto) 1.1 L [place] # (Auto) 3.8 H Eos # (Auto) 0.0 Baso # (Auto) 0.03 Neutrophils % (Manual) 87 H Lymphocytes % (Manual) 3 L Monocytes % (Manual) 10 H Platelet Evaluation Normal Large Platelets Present Hypochromasia Slight Anisocytosis (manual) Slight Microcytosis (manual) 1+ pO2 VBG pH VBG pCO2 VBG HCO3 VBG Total CO2 VBG O2 Sat (Calc) VBG Base Excess VBG Potassium Sodium 132 Chloride 99 Glucose Lactate FiO2 Potassium 5.8 H* Carbon Dioxide 16 L Anion Gap 23 H BUN 47 H Creatinine 3.0 H Est GFR ( Amer) 19 Est GFR (Non-Af Amer) 16 POC Glucose (mg/dL) 273 H Random Glucose 313 H* D Hemoglobin A1c Calcium 8.4 Total Bilirubin 0.5 AST 132 H D ALT 65 H Alkaline Phosphatase 114 Troponin I < 0.01 Total Protein 6.5 Albumin 3.5 Globulin 3.0 Albumin/Globulin Ratio 1.1 Venous Blood Potassium 08/23/17 08/23/17 06:20 06:20 WBC RBC Hgb Hct MCV MCH MCHC RDW Plt Count MPV Gran % Lymph % (Auto) [place] % (Auto) Eos % (Auto) Baso % (Auto) Gran # Lymph # (Auto) [place] # (Auto) Eos # (Auto) Baso # (Auto) Neutrophils % (Manual) Lymphocytes % (Manual) Monocytes % (Manual) Platelet Evaluation Large Platelets Hypochromasia Anisocytosis (manual) Microcytosis (manual) pO2 54 VBG pH 7.28 L VBG pCO2 36.0 L VBG HCO3 16.9 L VBG Total CO2 18.0 L VBG O2 Sat (Calc) 91.6 H VBG Base Excess -9.0 L VBG Potassium 5.5 H Sodium 133 131.0 L Chloride 100 101.0 Glucose 335 H Lactate 2.5 H FiO2 21.0 Potassium 5.5 H Carbon Dioxide 17 L Anion Gap 21 H BUN 49 H Creatinine 3.3 H Est GFR ( Amer) 17 Est GFR (Non-Af Amer) 14 POC Glucose (mg/dL) Random Glucose 310 H* Hemoglobin A1c Calcium 8.2 L Total Bilirubin 0.6 AST 174 H D ALT 91 H Alkaline Phosphatase 106 Troponin I Total Protein 6.0 Albumin 3.0 Globulin 3.0 Albumin/Globulin Ratio 1.0 L Venous Blood Potassium 5.5 H Assessment & Plan - Assessment and Plan (Free Text) Assessment: 62 year old female with history of metastatic ovarian cancer s/p hysterectomy and debulking, HTN, DM small bowel obstruction who is admitted with abdominal pain, nausea, vomiting, small bowel obstruction, ROSELYN on CKD, hyperkalemia and leukocytosis. The patient is alert oriented to place and self. She is a poor historian. She is unable to verbalize reason for hospitalization. She complains of diffuse abdominal pain and occasional nausea. She has NG tube draining green fluid. The patient is known to me from previous admission. She affirms that she is DNR/ DNI and that her friend Wilber Maloney is her health care surrogate. We discussed enacting POLST directive. Patent amenable, POLST: DNR/DNI completed, a copy is placed in the patients chart. Patient aware that kidney functions are declining , preliminary discussion regarding goals of care and dialysis initiated. Patient not ready to discuss at this time. Reassured that palliative services will help provide support with decision making. Time spent with patient in goals of care and advance care planning , 30 minutes Plan: Goals of care and advance care planning; POLST:DNR/DNI SBO: NG tube to suction, NPO, zofran as needed. being followed by surgery Hyperkalemia: IVF's, Kaexalate Leukocytosis: On Merrem,Flagyl and Zyvox,ID following. Ascites: IR consulted for possible paracentisis. ROSELYN: IVF's, monitor labs Pain: Dilaudid 0.25mg as needed
--- NOTE | 2017-08-23 10:45 | CP.PCM.PN ---
<Jcarlos Fernandez - Last Filed: 08/23/17 11:08> Subjective - Date & Time of Evaluation Date of Evaluation: 08/23/17 Time of Evaluation: 10:42 - Subjective Subjective: Medicine progress note for Dr. Aponte's service - Deuce Fernandez PGY3 Patient seen and examined at bedside this morning. No acute overnight events or new complaints reported. Patient wished for wrist restraints to be removed. Extensive discussion was had regarding importance of keeping her NG tube in place due to nausea/vomiting overnight and patient was agreeable to avoid pulling out her NGT. She complained of general malaise. Denied chest pain, palpitations, SOB. Objective - Vital Signs/Intake and Output Vital Signs (last 24 hours): Temp Pulse Resp BP Pulse Ox 97.8 F 107 H 19 107/64 96 08/23/17 06:00 08/23/17 06:00 08/23/17 06:00 08/23/17 06:00 08/23/17 06:00 Intake and Output: 08/23/17 08/23/17 06:59 18:59 Intake Total 1925 Output Total 575 Balance 1350 - Medications Medications: Current Medications Heparin Sodium (Porcine) (Heparin) 5,000 units SC Q8 SAM PRN Reason: Protocol Last Admin: 08/23/17 06:00 Dose: 5,000 units Hydromorphone HCl (Dilaudid) 0.25 mg IVP Q3H PRN PRN Reason: Pain, severe (8-10) Metronidazole (Flagyl) 500 mg in 100 mls @ 100 mls/hr IVPB Q8 SAM PRN Reason: Protocol Last Admin: 08/23/17 06:00 Dose: 100 mls/hr Meropenem (Merrem Iv 1 Gm Premix) 50 mls @ 100 mls/hr IVPB Q12 SAM PRN Reason: Protocol Stop: 08/31/17 10:01 Last Admin: 08/23/17 09:13 Dose: 100 mls/hr Linezolid (Zyvox 600mg/300ml D5w) 600 mg in 300 mls @ 200 mls/hr IVPB Q12 SAM PRN Reason: Protocol Stop: 08/31/17 10:16 Last Admin: 08/23/17 09:14 Dose: 200 mls/hr Dextrose/Sodium Chloride (Dextrose 5%/0.9% Ns 1000 Ml) 1,000 mls @ 75 mls/hr IV .[id number] [facility] Last Admin: 08/23/17 09:51 Dose: 75 mls/hr Insulin Human Regular (Humulin R Med) 0 units SC Q6 SAM PRN Reason: Protocol Last Admin: 08/23/17 05:59 Dose: 5 units Insulin Human Regular (Humulin R) 5 units SC BID [facility] Ipratropium [place] (Atrovent) 0.5 mg IH Q3 PRN PRN Reason: Shortness of Breath Last Admin: 08/23/17 00:18 Dose: 0.5 mg Levalbuterol HCl (Xopenex) 1.25 mg IH Q3 PRN PRN Reason: Shortness of Breath Last Admin: 08/23/17 00:18 Dose: 1.25 mg Metoprolol Tartrate (Lopressor) 5 mg IVP Q6H PRN PRN Reason: heart rate >100 Last Admin: 08/22/17 18:29 Dose: 5 mg Ondansetron HCl (Zofran Inj) 8 mg IVP Q8H [facility] Last Admin: 08/23/17 08:34 Dose: 8 mg Simethicone (Mylicon Chew Tab) 80 mg PO QID [facility] Last Admin: 08/23/17 09:11 Dose: Not Given - Labs Labs: 08/23/17 06:20 08/23/17 06:20 PT 12.6 SECONDS (9.4-12.5) H 08/21/17 21:32 INR 1.10 (0.93-1.08) H 08/21/17 21:32 APTT 24.1 Seconds (25.1-36.5) L 08/21/17 21:32 - Constitutional Appears: Older Than Stated Age, Chronically Ill - Head Exam Head Exam: ATRAUMATIC, NORMOCEPHALIC - ENT Exam ENT Exam: Mucous Membranes Moist - Neck Exam Neck Exam: Normal Inspection - Respiratory Exam Respiratory Exam: Decreased Breath Sounds. absent: Rales, Rhonchi, Wheezes - GI/Abdominal Exam GI & Abdominal Exam: Distended, Firm. 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 1. Abdominal pain with nausea/vomiting 2. Metastatic carcinosarcoma involving the ovary s/p debulking surgery 3. Anemia 4. Acute kidney injury 5. Sepsis secondary UTI/bacteremia 6. Hyperkalemia 7. Hypertension 8. Diabetes mellitus type 2 -Abdominal/Pelvis CT was notable for marked disease progression, 3 new pulmonary nodules suspicious for metastasis, peritoneal carcinomatosis, multiple complex masses in the abdomen and pelvis consistent with metastatic deposits, loculated fluid collection, possible early developing small bowel obstruction. -PET CT from 06/2017 revealed large heterogenous mass in pelvis (sepation, cyst, necrotic) 13.4cm x 11.5cm x 9.6cm, Ascites in abdomen/pelvis, medium size R effusion, 9mm nodule L lower lobe -Patient is on broad spectrum antibiotics with meropenem, aztreonam and flagyl; ID has been consulted and blood cultures were positive as well as urine cultures ; repeat cultures have been ordered and are pending -For her ROSELYN, patients ramapril has been discontinued and she was started on D5 NS @ 75cc/hr; yung will be replaced and urine output will be monitored -She was started on insulin scheduled and sliding scale for glycemic control -IR was consulted for evaluation for paracentesis and surgery is following as well. -As per patient's wishes, she is DNR/DNI and palliative care has been consulted. Discussed case with her healthcare proxy as well. Patient seen and case discussed/reviewed with attending, Dr. Aponte <Mauricio Aponte - Last Filed: 08/23/17 17:02> Objective - Vital Signs/Intake and Output Vital Signs (last 24 hours): Temp Pulse Resp BP Pulse Ox 98.8 F 114 H 18 94/51 L 100 08/23/17 12:54 08/23/17 12:54 08/23/17 12:54 08/23/17 12:54 08/23/17 12:54 Intake and Output: 08/23/17 08/23/17 06:59 18:59 Intake Total 1925 575 Output Total 575 150 Balance 1350 425 - Medications Medications: Current Medications Heparin Sodium (Porcine) (Heparin) 5,000 units SC Q8 SAM PRN Reason: Protocol Last Admin: 08/23/17 13:23 Dose: 5,000 units Hydromorphone HCl (Dilaudid) 0.25 mg IVP Q3H PRN PRN Reason: Pain, severe (8-10) Metronidazole (Flagyl) 500 mg in 100 mls @ 100 mls/hr IVPB Q8 SAM PRN Reason: Protocol Last Admin: 08/23/17 13:23 Dose: 100 mls/hr Meropenem (Merrem Iv 1 Gm Premix) 50 mls @ 100 mls/hr IVPB Q12 SAM PRN Reason: Protocol Stop: 08/31/17 10:01 Last Admin: 08/23/17 09:13 Dose: 100 mls/hr Linezolid (Zyvox 600mg/300ml D5w) 600 mg in 300 mls @ 200 mls/hr IVPB Q12 SAM PRN Reason: Protocol Stop: 08/31/17 10:16 Last Admin: 08/23/17 09:14 Dose: 200 mls/hr Dextrose/Sodium Chloride (Dextrose 5%/0.9% Ns 1000 Ml) 1,000 mls @ 75 mls/hr IV .[id number] [facility] Last Admin: 08/23/17 09:51 Dose: 75 mls/hr Insulin Human Regular (Humulin R Med) 0 units SC Q6 SAM PRN Reason: Protocol Last Admin: 08/23/17 12:05 Dose: 5 units Insulin Human Regular (Humulin R) 5 units SC BID [facility] Last Admin: 08/23/17 12:06 Dose: 5 units Ipratropium [place] (Atrovent) 0.5 mg IH Q3 PRN PRN Reason: Shortness of Breath Last Admin: 08/23/17 00:18 Dose: 0.5 mg Levalbuterol HCl (Xopenex) 1.25 mg IH Q3 PRN PRN Reason: Shortness of Breath Last Admin: 08/23/17 00:18 Dose: 1.25 mg Metoprolol Tartrate (Lopressor) 5 mg IVP Q6H PRN PRN Reason: heart rate >100 Last Admin: 08/22/17 18:29 Dose: 5 mg Ondansetron HCl (Zofran Inj) 8 mg IVP Q8H [facility] Last Admin: 08/23/17 08:34 Dose: 8 mg Simethicone (Mylicon Chew Tab) 80 mg PO QID [facility] Last Admin: 08/23/17 13:23 Dose: 80 mg - Labs Labs: 08/23/17 06:20 08/23/17 06:20 PT 12.6 SECONDS (9.4-12.5) H 08/21/17 21:32 INR 1.10 (0.93-1.08) H 08/21/17 21:32 APTT 24.1 Seconds (25.1-36.5) L 08/21/17 21:32 Assessment and Plan - Assessment and Plan (Free Text) Plan: Pt seen and examined. Agree with the note of the medical billing associate. Labs and medications have been reviewed. Pt with multiple acute issues. Pt has high K and will hold transfusion until improved. PRBC can increase K. Spoke to proxy and updated her on poor prognosis. Pt is anuric. Spoke to proxy about dialysis and she prefers comfort. Palliative care conult. Spoke to Kristyn. Poor progosis. Pt is DNR
--- NOTE | 2017-08-23 11:27 | CP.PCM.PN ---
Subjective - Date & Time of Evaluation Date of Evaluation: 08/23/17 Time of Evaluation: 11:24 - Subjective Subjective: General Surgery Note for Dr. Gallo Pt seen and examined at bedside. Pt was agitated due to restraints placed overnight. Pt pulled NG tube overnight, and then it was replaced as per nursing. Reports discomfort for NG tube. Pt reports abdominal pain. Pt reports she passed gas this am. Objective - Vital Signs/Intake and Output Vital Signs (last 24 hours): Temp Pulse Resp BP Pulse Ox 97.8 F 107 H 19 107/64 96 08/23/17 06:00 08/23/17 06:00 08/23/17 06:00 08/23/17 06:00 08/23/17 06:00 Intake and Output: 08/23/17 08/23/17 06:59 18:59 Intake Total 1925 Output Total 575 Balance 1350 - Medications Medications: Current Medications Heparin Sodium (Porcine) (Heparin) 5,000 units SC Q8 SAM PRN Reason: Protocol Last Admin: 08/23/17 06:00 Dose: 5,000 units Hydromorphone HCl (Dilaudid) 0.25 mg IVP Q3H PRN PRN Reason: Pain, severe (8-10) Metronidazole (Flagyl) 500 mg in 100 mls @ 100 mls/hr IVPB Q8 SAM PRN Reason: Protocol Last Admin: 08/23/17 06:00 Dose: 100 mls/hr Meropenem (Merrem Iv 1 Gm Premix) 50 mls @ 100 mls/hr IVPB Q12 SAM PRN Reason: Protocol Stop: 08/31/17 10:01 Last Admin: 08/23/17 09:13 Dose: 100 mls/hr Linezolid (Zyvox 600mg/300ml D5w) 600 mg in 300 mls @ 200 mls/hr IVPB Q12 SAM PRN Reason: Protocol Stop: 08/31/17 10:16 Last Admin: 08/23/17 09:14 Dose: 200 mls/hr Dextrose/Sodium Chloride (Dextrose 5%/0.9% Ns 1000 Ml) 1,000 mls @ 75 mls/hr IV .[id number] SAM Last Admin: 08/23/17 09:51 Dose: 75 mls/hr Insulin Human Regular (Humulin R Med) 0 units SC Q6 SAM PRN Reason: Protocol Last Admin: 08/23/17 05:59 Dose: 5 units Insulin Human Regular (Humulin R) 5 units SC BID [facility] Ipratropium [place] (Atrovent) 0.5 mg IH Q3 PRN PRN Reason: Shortness of Breath Last Admin: 08/23/17 00:18 Dose: 0.5 mg Levalbuterol HCl (Xopenex) 1.25 mg IH Q3 PRN PRN Reason: Shortness of Breath Last Admin: 08/23/17 00:18 Dose: 1.25 mg Metoprolol Tartrate (Lopressor) 5 mg IVP Q6H PRN PRN Reason: heart rate >100 Last Admin: 08/22/17 18:29 Dose: 5 mg Ondansetron HCl (Zofran Inj) 8 mg IVP Q8H [facility] Last Admin: 08/23/17 08:34 Dose: 8 mg Simethicone (Mylicon Chew Tab) 80 mg PO QID [facility] Last Admin: 08/23/17 09:11 Dose: Not Given - Labs Labs: 08/23/17 06:20 08/23/17 06:20 PT 12.6 SECONDS (9.4-12.5) H 08/21/17 21:32 INR 1.10 (0.93-1.08) H 08/21/17 21:32 APTT 24.1 Seconds (25.1-36.5) L 08/21/17 21:32 - Constitutional Appears: Agitated - Head Exam Head Exam: NORMAL INSPECTION - ENT Exam ENT Exam: Mucous Membranes Dry - Respiratory Exam Respiratory Exam: NORMAL BREATHING PATTERN - Cardiovascular Exam Cardiovascular Exam: Tachycardia, REGULAR RHYTHM - GI/Abdominal Exam GI & Abdominal Exam: Distended, Soft, Tenderness, Diminished Bowel Sounds, Mass - Extremities Exam Extremities Exam: Normal Inspection - Neurological Exam Neurological Exam: Alert, Awake - Psychiatric Exam Psychiatric exam: Agitated - Skin Skin Exam: Dry, Intact, Warm Assessment and Plan - Assessment and Plan (Free Text) Assessment: 62 F with PMH of ovarian cancer on carboplatin/taxol 2 weeks ago, s/p debulking surgery 2 months ago presents for nausea/vomiting and abdominal pain; found to have 3 new pulmonary nodules; peritoneal carcinomatosis; multiple complex masses in the abdomen and pelvis Plan: -NPO -Continue IV fluids -Continue IV antibiotic -Analgesics/Anti-emetics -Strict I's & O's -Serial abdominal exams -Follow up palliative care consult -Further recommendations as per Dr. Gallo
[2017-08-23 11:58] LABS: VENOUS BLOOD GAS BASE EXCESS -8.4 mmol/L (0.0-2.0); VENOUS BLOOD GAS PO2 56 mm/Hg (30-55)
[2017-08-23] MEDS: Insulin Regular 1 UNITS/0.01 ML ML SC SCH ×2 (12:06→17:57)
--- NOTE | 2017-08-23 17:18 | PN ---
DATE: 08/23/2017 SUBJECTIVE: The patient is in bed, in no acute distress, was seen earlier today in 270, bed 2. No fevers and no chills. PHYSICAL EXAMINATION: VITAL SIGNS: Temperature is 99, blood pressure is 100/60, respiratory rate of 20, heart rate of 103. HEENT: Unremarkable. NECK: Supple. LUNGS: Have decreased breath sounds. HEART: Normal S1 and S2. ABDOMEN: Soft, nontender. LABORATORY DATA: Reveals a white count of 29,500, hemoglobin of 7.1, platelets of 252. Coagulation is noted. BUN of 49, creatinine of 3.3, glucose is 310. Urinalysis is noted. Microbiology reveals a gram-positive cocci in the blood in 1 bottle. I was not notified of this coagulase-negative Staph by PNA. The patient also has a gram-negative marshal in the urine culture. Of note, this patient only had 2 to 5 wbc's in the urine. Review of orders reveals the patient to be on meropenem and Zyvox. Dr. Dr. Renaldo Odell's progress note is reviewed. Dr. Jcarlos Fernandez's progress note is reviewed. Tamara Siu's consultation is appreciated. Dr. Serna's consultation is reviewed. ASSESSMENT AND PLAN: This is a 62-year-old female seen earlier today in room 270, bed 2 with a nasogastric tube in with severe sepsis with small bowel obstruction and possible intraabdominal collection in a patient with ovarian cancer, status post chemotherapy, status post abdominal surgery, now with pulmonary metastasis with pulmonary nodules and acute kidney injury with metabolic acidosis and increased anion gap, now gram-positive cocci, one bottle coag-negative Staphylococcus, most likely a contamination, not a pathogen and with a gram-negative marshal in the urine, also the urinalysis is unremarkable. We will give a short course of antibiotic. Overall prognosis is quite poor for this patient. We will repeat the blood cultures x2. Dr. Fernandez has already ordered repeat blood cultures. We will follow those results. Overall prognosis is poor. Jorge Lee MD
[2017-08-23] MEDS ORDERED: Sodium Chloride 0.9% 500 ML IV STA (18:52)
[2017-08-24] MEDS: metroNIDAZOLE IV 500 mg/100 ml 500 MG/100 ML BAG IVPB SCH (06:03)
--- NOTE | 2017-08-24 07:16 | CP.PCM.PN ---
Subjective - Date & Time of Evaluation Date of Evaluation: 08/24/17 Time of Evaluation: 07:13 - Subjective Subjective: Medicine progress note for Dr. Aponte's service - Deuce Fernandez PGY3 Patient seen and examined at bedside this morning. Reported an episode of vomiting overnight and NG tube is removed. Patient reportedly producing minimal urine. Palliative care has been consulted and patient is aware of poor prognosis. She reports abdominal pain on palpation. Objective - Vital Signs/Intake and Output Vital Signs (last 24 hours): Temp Pulse Resp BP Pulse Ox 97.4 F L 108 H 19 84/48 L 99 08/23/17 18:33 08/23/17 18:33 08/23/17 18:33 08/23/17 18:33 08/23/17 18:33 Intake and Output: 08/24/17 08/24/17 06:59 18:59 Intake Total 0 Output Total 3 Balance -3 - Medications Medications: Current Medications Heparin Sodium (Porcine) (Heparin) 5,000 units SC Q8 SAM PRN Reason: Protocol Last Admin: 08/24/17 06:04 Dose: 5,000 units Hydromorphone HCl (Dilaudid) 0.25 mg IVP Q3H PRN PRN Reason: Pain, severe (8-10) Last Admin: 08/24/17 02:24 Dose: 0.25 mg Metronidazole (Flagyl) 500 mg in 100 mls @ 100 mls/hr IVPB Q8 SAM PRN Reason: Protocol Last Admin: 08/24/17 06:03 Dose: 100 mls/hr Meropenem (Merrem Iv 1 Gm Premix) 50 mls @ 100 mls/hr IVPB Q12 SAM PRN Reason: Protocol Stop: 08/31/17 10:01 Last Admin: 08/23/17 22:16 Dose: 100 mls/hr Linezolid (Zyvox 600mg/300ml D5w) 600 mg in 300 mls @ 200 mls/hr IVPB Q12 SAM PRN Reason: Protocol Stop: 08/31/17 10:16 Last Admin: 08/23/17 22:18 Dose: 200 mls/hr Dextrose/Sodium Chloride (Dextrose 5%/0.9% Ns 1000 Ml) 1,000 mls @ 75 mls/hr IV .[id number] [facility] Last Admin: 08/23/17 09:51 Dose: 75 mls/hr Insulin Human Regular (Humulin R Med) 0 units SC Q6 SAM PRN Reason: Protocol Last Admin: 08/23/17 17:49 Dose: Not Given Insulin Human Regular (Humulin R) 5 units SC BID [facility] Last Admin: 08/23/17 17:57 Dose: 5 units Ipratropium [place] (Atrovent) 0.5 mg IH Q3 PRN PRN Reason: Shortness of Breath Last Admin: 08/23/17 00:18 Dose: 0.5 mg Levalbuterol HCl (Xopenex) 1.25 mg IH Q3 PRN PRN Reason: Shortness of Breath Last Admin: 08/23/17 00:18 Dose: 1.25 mg Metoprolol Tartrate (Lopressor) 5 mg IVP Q6H PRN PRN Reason: heart rate >100 Last Admin: 08/22/17 18:29 Dose: 5 mg Ondansetron HCl (Zofran Inj) 8 mg IVP Q8H [facility] Last Admin: 08/24/17 05:20 Dose: Not Given Simethicone (Mylicon Chew Tab) 80 mg PO QID [facility] Last Admin: 08/23/17 22:15 Dose: 80 mg - Labs Labs: 08/23/17 06:20 08/23/17 06:20 PT 12.6 SECONDS (9.4-12.5) H 08/21/17 21:32 INR 1.10 (0.93-1.08) H 08/21/17 21:32 APTT 24.1 Seconds (25.1-36.5) L 08/21/17 21:32 - Constitutional Appears: Confused, Chronically Ill - Head Exam Head Exam: ATRAUMATIC, NORMOCEPHALIC - Neck Exam Neck Exam: Normal Inspection - Respiratory Exam Respiratory Exam: Decreased Breath Sounds. absent: Rales, Rhonchi, Wheezes - Cardiovascular Exam Cardiovascular Exam: +S1, +S2. absent: Gallop, Rubs - GI/Abdominal Exam GI & Abdominal Exam: Distended, Firm, Tenderness. 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 1. Abdominal pain with nausea/vomiting 2. Metastatic carcinosarcoma involving the ovary s/p debulking surgery 3. Anemia 4. Acute kidney injury 5. Sepsis secondary UTI/bacteremia 6. Hyperkalemia 7. Hypertension 8. Diabetes mellitus type 2 -Patient is on broad spectrum antibiotics with meropenem, zyvox and flagyl; ID has been consulted and blood culture was positive for coag negative staph in 1 bottle likely contamination, however repeat cultures have been ordered and are pending; Urine culture growing graph negative rods -For her ROSELYN, patients ramapril has been discontinued and she was started on D5 NS @ 75cc/hr; Patient is anuric and discussion regarding dialysis was had with proxy and at this time prefers comfort care. -She was started on insulin scheduled and sliding scale for glycemic control -IR was consulted for evaluation for paracentesis and surgery is following as well -Prognosis is poor and as per patient's wishes, she is DNR/DNI. Palliative care has been consulted. Discussed case with her healthcare proxy as well. -Abdominal/Pelvis CT was notable for marked disease progression, 3 new pulmonary nodules suspicious for metastasis, peritoneal carcinomatosis, multiple complex masses in the abdomen and pelvis consistent with metastatic deposits, loculated fluid collection, possible early developing small bowel obstruction. -PET CT from 06/2017 revealed large heterogenous mass in pelvis (sepation, cyst, necrotic) 13.4cm x 11.5cm x 9.6cm, Ascites in abdomen/pelvis, medium size R effusion, 9mm nodule L lower lobe Patient seen and case discussed/reviewed with attending, Dr. Aponte
[2017-08-24 08:40] VITALS: BP 98/52; PULSE 115; RESP 17; TEMP 97.8; O2SAT 98
[2017-08-24] MEDS ORDERED: Morphine 2 mg/ml ISec IVP ONE (09:00)
--- NOTE | 2017-08-24 09:54 | CP.PCM.PN ---
Subjective - Date & Time of Evaluation Date of Evaluation: 08/24/17 Time of Evaluation: 09:00 - Subjective Subjective: Complains of persistent diffuse abdominal pain, intractable nausea and vomiting Objective - Vital Signs/Intake and Output Vital Signs (last 24 hours): Temp Pulse Resp BP Pulse Ox 97.8 F 115 H 17 98/52 L 98 08/24/17 08:40 08/24/17 08:40 08/24/17 08:40 08/24/17 08:40 08/24/17 08:40 Intake and Output: 08/24/17 08/24/17 06:59 18:59 Intake Total 0 Output Total 3 Balance -3 - Medications Medications: Current Medications Heparin Sodium (Porcine) (Heparin) 5,000 units SC Q8 SAM PRN Reason: Protocol Last Admin: 08/24/17 06:04 Dose: 5,000 units Hydromorphone HCl (Dilaudid) 0.25 mg IVP Q3H PRN PRN Reason: Pain, severe (8-10) Last Admin: 08/24/17 02:24 Dose: 0.25 mg Metronidazole (Flagyl) 500 mg in 100 mls @ 100 mls/hr IVPB Q8 SAM PRN Reason: Protocol Last Admin: 08/24/17 06:03 Dose: 100 mls/hr Meropenem (Merrem Iv 1 Gm Premix) 50 mls @ 100 mls/hr IVPB Q12 SAM PRN Reason: Protocol Stop: 08/31/17 10:01 Last Admin: 08/23/17 22:16 Dose: 100 mls/hr Linezolid (Zyvox 600mg/300ml D5w) 600 mg in 300 mls @ 200 mls/hr IVPB Q12 SAM PRN Reason: Protocol Stop: 08/31/17 10:16 Last Admin: 08/23/17 22:18 Dose: 200 mls/hr Dextrose/Sodium Chloride (Dextrose 5%/0.9% Ns 1000 Ml) 1,000 mls @ 75 mls/hr IV .[id number] [facility] Last Admin: 08/23/17 09:51 Dose: 75 mls/hr Insulin Human Regular (Humulin R Med) 0 units SC Q6 SAM PRN Reason: Protocol Last Admin: 08/23/17 17:49 Dose: Not Given Insulin Human Regular (Humulin R) 5 units SC BID [facility] Last Admin: 08/23/17 17:57 Dose: 5 units Ipratropium [place] (Atrovent) 0.5 mg IH Q3 PRN PRN Reason: Shortness of Breath Last Admin: 08/23/17 00:18 Dose: 0.5 mg Levalbuterol HCl (Xopenex) 1.25 mg IH Q3 PRN PRN Reason: Shortness of Breath Last Admin: 08/23/17 00:18 Dose: 1.25 mg Metoprolol Tartrate (Lopressor) 5 mg IVP Q6H PRN PRN Reason: heart rate >100 Last Admin: 08/22/17 18:29 Dose: 5 mg Ondansetron HCl (Zofran Inj) 8 mg IVP Q6 SAM Simethicone (Mylicon Chew Tab) 80 mg PO QID [facility] Last Admin: 08/23/17 22:15 Dose: 80 mg - Labs Labs: 08/23/17 06:20 08/23/17 06:20 PT 12.6 SECONDS (9.4-12.5) H 08/21/17 21:32 INR 1.10 (0.93-1.08) H 08/21/17 21:32 APTT 24.1 Seconds (25.1-36.5) L 08/21/17 21:32 - Constitutional Appears: Cachectic, Chronically Ill - Eye Exam Additional comments: blind left eye, right pupil EERL - ENT Exam ENT Exam: Mucous Membranes Moist, Normal Oropharynx - Respiratory Exam Respiratory Exam: Decreased Breath Sounds, NORMAL BREATHING PATTERN - Cardiovascular Exam Cardiovascular Exam: Tachycardia, +S1, +S2 - GI/Abdominal Exam GI & Abdominal Exam: Soft, Tenderness, Diminished Bowel Sounds - Extremities Exam Extremities Exam: Normal Capillary Refill, Pedal Edema - Neurological Exam Neurological Exam: Alert - Skin Skin Exam: Dry, Pallor Assessment and Plan - Assessment and Plan (Free Text) Assessment: 62 year old female with history of advanced ovarian cancer, s/p debulking surgery and chemotherapy who is admitted with sepsis,small bowel obstruction, ROSELYN, intractable pain, nausea and vomiting. The patient had earlier discussion with Dr Génesis Aponte regarding her medical condition and goals of care. Ms. Arshad does not want dialysis,nor does she want NG tube. She is requesting comfort measures instead. I also spoke with her and she reiterated her request for comfort care. Hospice services explained. Questions answered. Ms. Arshad amenable to [facility] hospice services. Patients POA, Janine Rojas notified of patients medical condion and intent to initiate hospice care. POA in agreement with this plan Plan: Hospice evaluation for [facility] services Pain management: Morphine IVP as needed, will switch to continuous Morphine infusion once on hospice Management of nausea and vomiting, Zofran every 6 hours scheduled dosing. End of life care
[2017-08-24] MEDS ORDERED: Morphine 2 mg/ml ISec IVP PRN ×2 (10:27→10:32)
--- NOTE | 2017-08-24 10:49 | CP.PCM.DIS ---
<Jcarlos Fernandez - Last Filed: 08/24/17 10:55> Provider - Provider Date of Admission: 08/22/17 03:56 Attending physician: Mauricio Aponte MD Primary care physician: Mauricio Aponte MD Consults: Surgery - Dr. Sabino HAYDEN - Dr. Foote Palliative care - [facility] Oncology - Dr. Serna Time Spent in preparation of Discharge (in minutes): 40 Hospital Course - Lab Results Lab Results: Micro Results 08/22/17 17:14 Urine,Clean Catch Urine Culture - Final 50-100,000 CFU/ML. MULTIPLE SPECIES. SUGGEST REPEAT SPECIMEN. Most Recent Lab Values WBC 29.5 10^3/ul (4.5-11.0) H* 08/23/17 06:20 RBC 2.48 10^6/uL (3.5-6.1) L 08/23/17 06:20 Hgb 7.1 g/dL (12.0-16.0) L 08/23/17 06:20 Hct 21.9 % (36.0-48.0) L 08/23/17 06:20 MCV 88.3 fl (80.0-105.0) 08/23/17 06:20 MCH 28.6 pg (25.0-35.0) 08/23/17 06:20 MCHC 32.4 g/dl (31.0-37.0) 08/23/17 06:20 RDW 17.3 % (11.5-14.5) H 08/23/17 06:20 Plt Count 252 10^3/uL (120.0-450.0) 08/23/17 06:20 MPV 9.3 fl (7.0-11.0) 08/23/17 06:20 Gran % 83.4 % (50.0-68.0) H 08/23/17 06:20 Lymph % (Auto) 3.8 % (22.0-35.0) L 08/23/17 06:20 [place] % (Auto) 12.7 % (1.0-6.0) H 08/23/17 06:20 Eos % (Auto) 0.0 % (1.5-5.0) L 08/23/17 06:20 Baso % (Auto) 0.1 % (0.0-3.0) 08/23/17 06:20 Gran # 24.57 (1.4-6.5) H 08/23/17 06:20 Lymph # (Auto) 1.1 (1.2-3.4) L 08/23/17 06:20 [place] # (Auto) 3.8 (0.1-0.6) H 08/23/17 06:20 Eos # (Auto) 0.0 (0.0-0.7) 08/23/17 06:20 Baso # (Auto) 0.03 K/mm3 (0.0-2.0) 08/23/17 06:20 Neutrophils % (Manual) 87 % (50.0-70.0) H 08/23/17 06:20 Lymphocytes % (Manual) 3 % (22.0-35.0) L 08/23/17 06:20 Monocytes % (Manual) 10 % (1.0-6.0) H 08/23/17 06:20 Platelet Evaluation Normal (NORMAL) 08/23/17 06:20 Large Platelets Present 08/23/17 06:20 Hypochromasia Slight 08/23/17 06:20 Anisocytosis (manual) Slight 08/23/17 06:20 Microcytosis (manual) 1+ 08/23/17 06:20 PT 12.6 SECONDS (9.4-12.5) H 08/21/17 21:32 INR 1.10 (0.93-1.08) H 08/21/17 21:32 APTT 24.1 Seconds (25.1-36.5) L 08/21/17 21:32 pCO2 26 mm/Hg (35-45) L 08/22/17 04:45 pO2 56 mm/Hg (30-55) H 08/23/17 11:50 HCO3 15.4 mmol/L (21-28) L 08/22/17 04:45 ABG pH 7.38 (7.35-7.45) 08/22/17 04:45 ABG Total CO2 16.2 mmol.L (22-28) L 08/22/17 04:45 ABG O2 Saturation 99.2 % (95-98) H 08/22/17 04:45 ABG Base Excess -8.0 mmol/L (-2.0-3.0) L 08/22/17 04:45 ABG Potassium 4.9 mmol/L (3.6-5.2) 08/22/17 04:45 VBG pH 7.30 (7.32-7.43) L 08/23/17 11:50 VBG pCO2 35.0 (40-60) L 08/23/17 11:50 VBG HCO3 17.2 mmol/l (21-28) L 08/23/17 11:50 VBG Total CO2 18.3 mmol.L (22-28) L 08/23/17 11:50 VBG O2 Sat (Calc) 91.5 % (40-65) H 08/23/17 11:50 VBG Base Excess -8.4 mmol/L (0.0-2.0) L 08/23/17 11:50 VBG Potassium 5.5 mmol/L (3.6-5.2) H 08/23/17 11:50 Sodium 130.0 mmol/L (132-148) L 08/23/17 11:50 Chloride 102.0 mmol/L (98-107) 08/23/17 11:50 Glucose 288 mg/dl (65-105) H 08/23/17 11:50 Lactate 2.2 mmol/L (0.7-2.1) H 08/23/17 11:50 FiO2 21.0 % 08/23/17 11:50 Sodium 133 mmol/L (132-148) 08/23/17 06:20 Potassium 5.5 mmol/L (3.6-5.0) H 08/23/17 06:20 Chloride 100 mmol/L (98-107) 08/23/17 06:20 Carbon Dioxide 17 mmol/L (21-33) L 08/23/17 06:20 Anion Gap 21 (10-20) H 08/23/17 06:20 BUN 49 mg/dL (7-21) H 08/23/17 06:20 Creatinine 3.3 mg/dl (0.7-1.2) H 08/23/17 06:20 Est GFR ( Amer) 17 08/23/17 06:20 Est GFR (Non-Af Amer) 14 08/23/17 06:20 POC Glucose (mg/dL) 239 mg/dL (65-110) H 08/24/17 08:05 Random Glucose 310 mg/dL (70-110) H* 08/23/17 06:20 Hemoglobin A1c 6.0 % (4.2-6.5) 08/22/17 07:50 Calcium 8.2 mg/dL (8.4-10.5) L 08/23/17 06:20 Phosphorus 4.3 mg/dL (2.5-4.5) 08/22/17 03:08 Magnesium 1.5 mg/dL (1.7-2.2) L 08/22/17 03:08 Total Bilirubin 0.6 mg/dL (0.2-1.3) 08/23/17 06:20 AST 174 U/L (14-36) H D 08/23/17 06:20 ALT 91 U/L (7-56) H 08/23/17 06:20 Alkaline Phosphatase 106 U/L (38-126) 08/23/17 06:20 Lactate Dehydrogenase 865 U/L (333-699) H 08/22/17 07:50 Total Creatine Kinase 20 U/L (35-230) L 08/22/17 07:50 Troponin I < 0.01 ng/mL 08/22/17 22:00 NT-Pro-B Natriuret Pep 204 pg/mL (0-450) 08/22/17 03:08 Total Protein 6.0 g/dL (5.8-8.3) 08/23/17 06:20 Albumin 3.0 g/dL (3.0-4.8) 08/23/17 06:20 Globulin 3.0 gm/dL 08/23/17 06:20 Albumin/Globulin Ratio 1.0 (1.1-1.8) L 08/23/17 06:20 Arterial Blood Potassium 4.9 mmol/L (3.6-5.2) 08/22/17 04:45 Venous Blood Potassium 5.5 mmol/L (3.6-5.2) H 08/23/17 11:50 Urine Color Yellow (YELLOW) 08/22/17 00:24 Urine Appearance Sl cloudy (CLEAR) 08/22/17 00:24 Urine pH 6.0 (4.7-8.0) 08/22/17 00:24 Ur Specific [place] >= 1.030 (1.005-1.035) 08/22/17 00:24 Urine Protein 100 mg/dL (<30 mg/dL) H 08/22/17 00:24 Urine Glucose (UA) Negative mg/dL (NEGATIVE) 08/22/17 00:24 Urine Ketones 15 mg/dL (NEGATIVE) H 08/22/17 00:24 Urine Blood Trace-intact (NEGATIVE) H 08/22/17 00:24 Urine Nitrate Negative (NEGATIVE) 08/22/17 00:24 Urine Bilirubin Small (NEGATIVE) H 08/22/17 00:24 Urine Urobilinogen 1.0 E.U./dL (<1 E.U./dL) H 08/22/17 00:24 Ur Leukocyte Esterase Trace Jakob/uL (NEGATIVE) H 08/22/17 00:24 Urine RBC 1 - 3 /hpf (0-2) 08/22/17 00:24 Urine WBC 2 - 5 /hpf (0-6) 08/22/17 00:24 Ur Epithelial Cells 1 - 3 /hpf (0-5) 08/22/17 00:24 Urine Bacteria Mod (NEG) 08/22/17 00:24 Emesis for Blood Positive (NEGATIVE) H 08/23/17 16:33 Blood Type AB POSITIVE 08/22/17 03:28 Antibody Screen Negative 08/22/17 03:28 Crossmatch See Detail 08/22/17 03:28 BBK History Checked Patient has bt 08/22/17 03:28 - Hospital Course Hospital Course: Patient is a 62yo female with extensive past medical history including 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 An abdominal/pelvis CT was obtained which revealed marked disease progression, 3 new pulmonary nodules suspicious for metastasis, peritoneal carcinomatosis, multiple complex masses in the abdomen and pelvis consistent with metastatic deposits, loculated fluid collection, possible early developing small bowel obstruction. A PET scan from revealed large heterogenous mass in pelvis (sepation, cyst, necrotic) 13.4cm x 11.5cm x 9.6cm, Ascites in abdomen/ pelvis, medium size R effusion, 9mm nodule L lower lobe. She was noted to have marked leukocytosis, elevated lactic acid and tachycardia. She was started on IV fluids and broad spectrum antibiotics for severe sepsis presumably secondary to UTI which grew gram negative rods. Surgery was consulted for small bowel obstruction and an NG tube was placed which drained over 600cc of fluid. She was anuric and had an elevated creatinine secondary to acute kidney injury. Due to her poor prognosis and metastatic carcinosarcoma, palliative care was consulted and an extensive conversation was had with both the patient as well as her healthcare proxy. The patient and proxy both agreed that she wishes to be DNR/DNI and wants comfort measures. She did not want an NG tube or dialysis. Patient was subsequently discharged to inpatient hospice services. Discharge Exam - Head Exam Head Exam: ATRAUMATIC, NORMOCEPHALIC - Respiratory Exam Respiratory Exam: Decreased Breath Sounds. absent: Rales, Rhonchi, Wheezes - Cardiovascular Exam Cardiovascular Exam: +S1, +S2. absent: Gallop, Rubs - GI/Abdominal Exam GI & Abdominal Exam: Distended, Firm, Tenderness. absent: Guarding, Rigid, Soft - Extremities Exam Extremities exam: normal inspection, pedal pulses present - Neurological Exam Neurological exam: Alert, Oriented x3 - Psychiatric Exam Psychiatric exam: Normal Affect, Normal Mood - Skin Skin Exam: Dry, Intact, Normal Color, Warm Discharge Plan - Follow Up Plan Condition: GUARDED Disposition: HOSPICE - MEDICAL FACILITY Referrals: Mauricio Aponte MD [Primary Care Provider] - <Mauricio Aponte - Last Filed: 08/25/17 10:44> Provider - Provider Date of Admission: 08/22/17 03:56 Attending physician: Mauricio Aponte MD Primary care physician: Mauricio Aponte MD Hospital Course - Lab Results Lab Results: Micro Results 08/23/17 11:55 Blood Blood Culture - Preliminary NO GROWTH AFTER 24 HOURS 08/23/17 11:20 Blood Blood Culture - Preliminary NO GROWTH AFTER 24 HOURS 08/23/17 10:40 Blood Blood Culture - Preliminary NO GROWTH AFTER 24 HOURS 08/22/17 17:14 Urine,Clean Catch Urine Culture - Final 50-100,000 CFU/ML. MULTIPLE SPECIES. SUGGEST REPEAT SPECIMEN. Most Recent Lab Values WBC 29.5 10^3/ul (4.5-11.0) H* 08/23/17 06:20 RBC 2.48 10^6/uL (3.5-6.1) L 08/23/17 06:20 Hgb 7.1 g/dL (12.0-16.0) L 08/23/17 06:20 Hct 21.9 % (36.0-48.0) L 08/23/17 06:20 MCV 88.3 fl (80.0-105.0) 08/23/17 06:20 MCH 28.6 pg (25.0-35.0) 08/23/17 06:20 MCHC 32.4 g/dl (31.0-37.0) 08/23/17 06:20 RDW 17.3 % (11.5-14.5) H 08/23/17 06:20 Plt Count 252 10^3/uL (120.0-450.0) 08/23/17 06:20 MPV 9.3 fl (7.0-11.0) 08/23/17 06:20 Gran % 83.4 % (50.0-68.0) H 08/23/17 06:20 Lymph % (Auto) 3.8 % (22.0-35.0) L 08/23/17 06:20 [place] % (Auto) 12.7 % (1.0-6.0) H 08/23/17 06:20 Eos % (Auto) 0.0 % (1.5-5.0) L 08/23/17 06:20 Baso % (Auto) 0.1 % (0.0-3.0) 08/23/17 06:20 Gran # 24.57 (1.4-6.5) H 08/23/17 06:20 Lymph # (Auto) 1.1 (1.2-3.4) L 08/23/17 06:20 [place] # (Auto) 3.8 (0.1-0.6) H 08/23/17 06:20 Eos # (Auto) 0.0 (0.0-0.7) 08/23/17 06:20 Baso # (Auto) 0.03 K/mm3 (0.0-2.0) 08/23/17 06:20 Neutrophils % (Manual) 87 % (50.0-70.0) H 08/23/17 06:20 Lymphocytes % (Manual) 3 % (22.0-35.0) L 08/23/17 06:20 Monocytes % (Manual) 10 % (1.0-6.0) H 08/23/17 06:20 Platelet Evaluation Normal (NORMAL) 08/23/17 06:20 Large Platelets Present 08/23/17 06:20 Hypochromasia Slight 08/23/17 06:20 Anisocytosis (manual) Slight 08/23/17 06:20 Microcytosis (manual) 1+ 08/23/17 06:20 PT 12.6 SECONDS (9.4-12.5) H 08/21/17 21:32 INR 1.10 (0.93-1.08) H 08/21/17 21:32 APTT 24.1 Seconds (25.1-36.5) L 08/21/17 21:32 pCO2 26 mm/Hg (35-45) L 08/22/17 04:45 pO2 56 mm/Hg (30-55) H 08/23/17 11:50 HCO3 15.4 mmol/L (21-28) L 08/22/17 04:45 ABG pH 7.38 (7.35-7.45) 08/22/17 04:45 ABG Total CO2 16.2 mmol.L (22-28) L 08/22/17 04:45 ABG O2 Saturation 99.2 % (95-98) H 08/22/17 04:45 ABG Base Excess -8.0 mmol/L (-2.0-3.0) L 08/22/17 04:45 ABG Potassium 4.9 mmol/L (3.6-5.2) 08/22/17 04:45 VBG pH 7.30 (7.32-7.43) L 08/23/17 11:50 VBG pCO2 35.0 (40-60) L 08/23/17 11:50 VBG HCO3 17.2 mmol/l (21-28) L 08/23/17 11:50 VBG Total CO2 18.3 mmol.L (22-28) L 08/23/17 11:50 VBG O2 Sat (Calc) 91.5 % (40-65) H 08/23/17 11:50 VBG Base Excess -8.4 mmol/L (0.0-2.0) L 08/23/17 11:50 VBG Potassium 5.5 mmol/L (3.6-5.2) H 08/23/17 11:50 Sodium 130.0 mmol/L (132-148) L 08/23/17 11:50 Chloride 102.0 mmol/L (98-107) 08/23/17 11:50 Glucose 288 mg/dl (65-105) H 08/23/17 11:50 Lactate 2.2 mmol/L (0.7-2.1) H 08/23/17 11:50 FiO2 21.0 % 08/23/17 11:50 Sodium 133 mmol/L (132-148) 08/23/17 06:20 Potassium 5.5 mmol/L (3.6-5.0) H 08/23/17 06:20 Chloride 100 mmol/L (98-107) 08/23/17 06:20 Carbon Dioxide 17 mmol/L (21-33) L 08/23/17 06:20 Anion Gap 21 (10-20) H 08/23/17 06:20 BUN 49 mg/dL (7-21) H 08/23/17 06:20 Creatinine 3.3 mg/dl (0.7-1.2) H 08/23/17 06:20 Est GFR ( Amer) 17 08/23/17 06:20 Est GFR (Non-Af Amer) 14 08/23/17 06:20 POC Glucose (mg/dL) 239 mg/dL (65-110) H 08/24/17 08:05 Random Glucose 310 mg/dL (70-110) H* 08/23/17 06:20 Hemoglobin A1c 6.0 % (4.2-6.5) 08/22/17 07:50 Calcium 8.2 mg/dL (8.4-10.5) L 08/23/17 06:20 Phosphorus 4.3 mg/dL (2.5-4.5) 08/22/17 03:08 Magnesium 1.5 mg/dL (1.7-2.2) L 08/22/17 03:08 Total Bilirubin 0.6 mg/dL (0.2-1.3) 08/23/17 06:20 AST 174 U/L (14-36) H D 07/02/18 06:20 ALT 91 U/L (7-56) H 08/23/17 06:20 Alkaline Phosphatase 106 U/L (38-126) 08/23/17 06:20 Lactate Dehydrogenase 865 U/L (333-699) H 08/22/17 07:50 Total Creatine Kinase 20 U/L (35-230) L 08/22/17 07:50 Troponin I < 0.01 ng/mL 08/22/17 22:00 NT-Pro-B Natriuret Pep 204 pg/mL (0-450) 08/22/17 03:08 Total Protein 6.0 g/dL (5.8-8.3) 08/23/17 06:20 Albumin 3.0 g/dL (3.0-4.8) 08/23/17 06:20 Globulin 3.0 gm/dL 08/23/17 06:20 Albumin/Globulin Ratio 1.0 (1.1-1.8) L 08/23/17 06:20 Arterial Blood Potassium 4.9 mmol/L (3.6-5.2) 08/22/17 04:45 Venous Blood Potassium 5.5 mmol/L (3.6-5.2) H 08/23/17 11:50 Urine Color Yellow (YELLOW) 08/22/17 00:24 Urine Appearance Sl cloudy (CLEAR) 08/22/17 00:24 Urine pH 6.0 (4.7-8.0) 08/22/17 00:24 Ur Specific [place] >= 1.030 (1.005-1.035) 08/22/17 00:24 Urine Protein 100 mg/dL (<30 mg/dL) H 08/22/17 00:24 Urine Glucose (UA) Negative mg/dL (NEGATIVE) 08/22/17 00:24 Urine Ketones 15 mg/dL (NEGATIVE) H 08/22/17 00:24 Urine Blood Trace-intact (NEGATIVE) H 08/22/17 00:24 Urine Nitrate Negative (NEGATIVE) 08/22/17 00:24 Urine Bilirubin Small (NEGATIVE) H 08/22/17 00:24 Urine Urobilinogen 1.0 E.U./dL (<1 E.U./dL) H 08/22/17 00:24 Ur Leukocyte Esterase Trace Jakob/uL (NEGATIVE) H 08/22/17 00:24 Urine RBC 1 - 3 /hpf (0-2) 08/22/17 00:24 Urine WBC 2 - 5 /hpf (0-6) 08/22/17 00:24 Ur Epithelial Cells 1 - 3 /hpf (0-5) 08/22/17 00:24 Urine Bacteria Mod (NEG) 08/22/17 00:24 Emesis for Blood Positive (NEGATIVE) H 08/23/17 16:33 Blood Type AB POSITIVE 08/22/17 03:28 Antibody Screen Negative 08/22/17 03:28 Crossmatch See Detail 08/22/17 03:28 BBK History Checked Patient has bt 08/22/17 03:28 - Hospital Course Hospital Course: Pt seen and examined yesterday. The labs and medications have been reviewed. She has a poor prognosis. She has agreed to comfort care. Will give Morphine and and Zofran. She is oligouric. Spoke to Palliative care and she has been accepted to hospice.
== END 2017-08-24 10:47 | disposition hospice, inpatient (51) | DRG 872 ==
LOC: ED 20:11 → ERH 08-22 03:56 → 2RSO 08-22 05:59 → 3RNO 08-23 12:47
PROVIDERS: ADMIT Internal Medicine Nephrology; ATTEND Internal Medicine Nephrology
DX: A41.9 Sepsis, unspecified organism (principal); C56.9 Malignant neoplasm of unspecified ovary; N17.9 Acute kidney failure, unspecified; E87.2 Acidosis; I13.0 Hypertensive heart and chronic kidney disease with heart failure and stage 1 through stage 4 chronic kidney disease, or unspecified chronic kidney disease; R18.8 Other ascites; K56.609 Unspecified intestinal obstruction, unspecified as to partial versus complete obstruction; N39.0 Urinary tract infection, site not specified; C78.6 Secondary malignant neoplasm of retroperitoneum and peritoneum; C78.00 Secondary malignant neoplasm of unspecified lung; H54.62 Unqualified visual loss, left eye, normal vision right eye; E87.5 Hyperkalemia; I25.10 Atherosclerotic heart disease of native coronary artery without angina pectoris; H81.09 Meniere's disease, unspecified ear; R65.20 Severe sepsis without septic shock; I50.9 Heart failure, unspecified; N18.9 Chronic kidney disease, unspecified; E11.9 Type 2 diabetes mellitus without complications; D64.81 Anemia due to antineoplastic chemotherapy; T45.1X5A Adverse effect of antineoplastic and immunosuppressive drugs, initial encounter; Z66 Do not resuscitate; Z51.5 Encounter for palliative care; E66.9 Obesity, unspecified; Z68.37 Body mass index [BMI] 37.0-37.9, adult; Z78.1 Physical restraint status; Z90.710 Acquired absence of both cervix and uterus; Z88.0 Allergy status to penicillin

== ENCOUNTER 2017-08-24 10:52 | Inpatient (IN) | payer OTHER ==
[2017-08-24] MEDS ORDERED: Morphine PCA 1 mg/ml (30ml) 30 ML IV PRN (11:03)
[2017-08-24 12:18] VITALS: RESP 18
--- NOTE | 2017-08-24 17:52 | CP.PCM.PRO ---
Pronouncement of Note - Clinical Findings Physical Exam: No Response Verbal/Painful Stimuli, Absent Peripheral Pulses{ Carotid & Femoral}, Absent Heart & Breath Sounds, No Pupillary Light Reflex, No Corneal Reflex, Pupils Fixed & Dilated, Absence of Vital Signs - Pronouncement Time Time of Pronouncement of : 17:31 - Notifications Pronouncement Notifications: Family Notified, Atending Notified Business Rules Analyst Notified: Yes - [place] [id number]
--- NOTE | 2017-08-24 23:59 | PN ---
DATE: 08/24/2017 SUBJECTIVE: Patient is seen early this morning, overall in poor condition and continued to have abdominal pain; however, she did continue to look poor. PHYSICAL EXAMINATION: VITAL SIGNS: Temperature of 98, blood pressure is 90/60, respiratory rate of 18, heart rate of 115. HEENT: Unremarkable. NECK: Supple. LUNGS: Have decreased breath sounds. HEART: Normal S1 and S2. ABDOMEN: Soft; however, mild tenderness. No rebound or guarding. 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 Hospice setting. Jorge Lee MD
== END 2017-08-24 17:24 | DRG 872 ==
LOC: 3RNO 10:52 → 3RSO 10:59
PROVIDERS: ADMIT Internal Medicine Nephrology; ATTEND Internal Medicine Nephrology
DX: A41.9 Sepsis, unspecified organism (principal); K56.609 Unspecified intestinal obstruction, unspecified as to partial versus complete obstruction; C56.9 Malignant neoplasm of unspecified ovary; C78.00 Secondary malignant neoplasm of unspecified lung; N17.9 Acute kidney failure, unspecified; N39.0 Urinary tract infection, site not specified; R65.20 Severe sepsis without septic shock; Z66 Do not resuscitate; Z51.5 Encounter for palliative care